=== PATIENT | male | born 1980 | race Caucasian/White ===

== ENCOUNTER 2022-06-02 17:51 | Inpatient (IN) | payer MEDICARE, MEDICAID, SELFPAY ==
--- NOTE | ~2022-06-02 | CT_ITS ---
EXAMINATION: CT ABDOMEN AND PELVIS WITHOUT CONTRAST CLINICAL INFORMATION: Transaminitis COMPARISON: None TECHNIQUE: Multidetector volumetric imaging was performed from the superior aspect of the liver through the pubic symphysis. Sagittal and coronal reformatted images were obtained on the technologist's workstation. This CT examination was performed using dose optimization techniques as appropriate, variously including the following: *Automated exposure control *Adjustment of mA and/or kV according to patient size (this includes techniques or standardized protocols for targeted exams where dose is matched to indication/reason for exam; i.e. extremities or head) *Use of iterative reconstruction technique DLP: 682 mGy-cm FINDINGS: LUNG BASES: The visualized lung bases are unremarkable. LIVER, GALLBLADDER, AND BILIARY TREE: Liver is normal in size, contour and morphology. Diffuse hepatic steatosis. No focal liver lesions. Cholelithiasis suspected. PANCREAS: Unremarkable. SPLEEN: Normal size. Calcified granuloma present. ADRENAL GLANDS: Unremarkable. KIDNEYS AND URETERS: The kidneys are normal in size, shape, and attenuation. No hydronephrosis, hydroureter, or calculi seen. No perinephric stranding. BLADDER: Unremarkable. GASTROINTESTINAL TRACT: The small and large bowel are unremarkable. The appendix is unremarkable. ABDOMINAL WALL: No significant hernia is appreciated. LYMPH NODES: Normal. VASCULAR: Unremarkable. PELVIC VISCERA: Unremarkable. OSSEOUS STRUCTURES: No acute or suspicious osseous abnormalities. CT/CT abdomen pelvis wo con IMPRESSION: Hepatic steatosis. Steatohepatitis can have this appearance as well. Cholelithiasis. No biliary dilatation.
[2022-06-02 17:59] VITALS: BP 134/82; PULSE 70; RESP 18; TEMP 37; O2SAT 100; BMI 25.8
--- NOTE | 2022-06-02 18:36 | ECG_ITS ---
Test Reason : CHEST PAIN Blood Pressure : / mmHG Vent. Rate : 073 BPM Atrial Rate : 073 BPM P-R Int : 120 ms QRS Dur : 090 ms QT Int : 548 ms P-R-T Axes : 057 026 058 degrees QTc Int : 603 ms Normal sinus rhythm Prolonged QT Abnormal ECG No previous ECGs available Referred By: Stiven Aquino Electronically Signed By:RICKY ESPINOZA MD
--- NOTE | 2022-06-02 18:39 | ED_ITS ---
HPI - General Adult General Chief complaint: General Medical Stated complaint: Heat Exhaustion Tired Time Seen by Provider: 06/02/22 18:14 Source: patient Mode of arrival: ambulatory Limitations: other (poor historian ) History of Present Illness HPI narrative: 41-year-old male pmhx ivda, currently homeless presenting to the emergency department with a weakness, fatigue, near syncopal episode x1 day. Patient tel ls me that he has been outside all these hot days and today he is feeling very hot, he got palpitations and some chest discomfort he had to put his head down because he felt like he was going to pass out he tells me he never really lost consciousness however he feels awful. He tells me he has not been eating or drinking well. He tells me he has no home he was on the street. At this time he tells me his only complaint is weakness, fatigue. He reports that he had chest discomfort and palpitations which have subsided. At this time denies fevers, chills, chest pain, nausea, vomiting, shortness of breath, headache, dizziness and vision changes. Denies any trauma. Not on blood thinners. Related Data Allergies Allergy/AdvReac Type Severity Reaction Status Date / Time Unable to Assess Allergy Unverified 06/02/22 18:15 Review of Systems Review of Systems: Constitutional : No Weight loss, No Fever, No Chills, + Fatigue, + Malaise ENT/Mouth : No sore throat, No Rhinorrhea Eyes: No Eye Pain, No Swelling, No Redness Cardiovascular : No Chest Pain, No SOB, No Dyspnea on Exertion, No Orthopnea, No Edema, No Palpitations Respiratory : No Cough, No Sputum, No Wheezing Gastrointestinal : No Nausea, No Vomiting, No Diarrhea, No Constipation, No abdominal Pain, No Hematochezia, No Melena Genitourinary : No Dysuria, No Urinary Frequency, No Hematuria, Musculoskeletal : No joint pain, No Myalgias, No Joint Swelling Skin : No Skin Lesions, No rash Neuro : + Weakness, No Numbness, No Dizziness, No Headache Psych : No Anxiety/Panic, No Depression All other systems reviewed and are negative Yes all other systems are reviewed and are negative [facility] Past Medical History Attestation statement: The following information was validated with the patient. Source: old records reviewed and nursing notes reviewed Medical History Heart palpitations IVDU (intravenous drug user) Social History Social History Alcohol intake: former Patient Tobacco Use Status: Former Tobacco user Use of substances other than those prescribed or required for medical reasons: Yes Advance Directives: No Advance Directives Information Provided: No Physical Exam ED Vital Signs: Vital Signs - 24 hr 06/02/22 17:59 06/02/22 20:04 Temperature 98.6 F Pulse Rate 70 79 Respiratory Rate 18 12 Blood Pressure 134/82 133/84 Pulse Oximetry 100 100 Oxygen Delivery Method Room Air Room Air BMI result Body Mass Index 25.8 VSS Appearance: Alert.? Oriented X3.? No acute distress.? Head: Normocephalic, atraumatic, no step-offs or deformities Eyes: Pupils equal, round and reactive to light.? ENT: Pharynx normal.?+ dry mucus membranes Neck: Normal inspection.? Neck supple.? CVS: Normal heart rate and rhythm.? Pulses normal.? Respiratory: No respiratory distress.? Breath sounds normal.? Abdomen: Soft and nontender.? Skin: Skin warm and dry.? Normal skin color.? Normal skin turgor.?+ skin on face flushed. Extremities: No lower extremity edema.? No calf ttp. 5/5 strength to bilateral upper and lower extremities Neuro: Oriented X 3.? No motor deficit.? No sensory deficit. CN 2-12 intact. Pat ient ambulating w/ steady tandem gait w/ normal cordination, rapid alternating movements intact, normal finger to nose & heel to cee. Course Reevaluation(s) Reevaluation #1: Right sided EJ placed with ultrasound guidance due to patient being a tough stick,no complications . Time: 19:57 Reevaluation #2: CBC within normal limits. Chemistry with a sodium of 128, patient will be receiving 3 L of normal saline. Anion gap of 22, BUN of 95, creatinine 2.84, new onset MARSHA likely secondary to rhabdo. Patient's magnesium 3.5, total bilirubin elevated, transaminases also elevated however no pain with palpation at of abdomen on exam. Patient's total creatinine kinase 2358 consistent with rhabdomyolysis. Ethanol negative. Troponin negative EKG with QTC prolongation again likely secondary to rhabdo/dehydration. Time: 20:01 Reevaluation #3: Patient will admitted to hospitalist team for further evaluation and treatment. Hospitalist requested a CT of the abdomen and pelvis due to transaminitis. It has been ordered at this time. Time: 20:14 Medical Decision Making MDM Narrative Medical decision making narrative: 1839 41-year-old male presents with complaints of fatigue, malaise, near syncopal episode. Reports he is homeless and has been out in hot temperatures for long periods of time. Not eating or drinking well. Physical examination significant for skin on his face appearing flushed. Vital signs are stable. Regular rate and rhythm. Lungs clear. Neuro nonfocal. Cerebellar function intact. Likely dehydration, unlikely ACS. Will rule out rhabdomyolysis. Plan at this time is to obtain basic labs, CPK, drug screen, ethanol, troponin, EKG, UA. Patient did report vague complaints of reflux will give Maalox. Will also give fluids for hydration. Medical Records Medical records reviewed: Yes I reviewed the patient's medical records. Lab Data Lab results reviewed: Yes I reviewed the patient's lab results. Result diagrams: 06/02/22 18:34 06/02/22 18:34 Labs: Lab Results 06/02/22 06/02/22 06/02/22 Range/Units 18:34 18:34 18:34 WBC 11.7 H (4.8-10.8) X10*3/uL RBC 4.72 (4.60-5.80) X10*6/uL Hgb 14.2 (14.0-18.0) g/dl Hct 40.4 L (42.0-52.0) % MCV 85.6 (80.0-98.0) fL MCH 30.1 (27.0-33.0) pg MCHC 35.1 (31.0-36.0) g/dl RDW 13.6 (11.0-16.0) % Plt Count 351 (160-400) X10*3/uL MPV 10.1 (9.4-12.4) fL Immature Gran % (Auto) 0.4 (0.0-0.4) % Neut % (Auto) 65.7 (45-73) % Lymph % (Auto) 23.5 (20-40) % [place] % (Auto) 9.9 (2-11) % Eos % (Auto) 0.2 (0-4) % Baso % (Auto) 0.3 (0-2) % Lymph # (Auto) 2.8 (1.2-4.9) X10*3/uL [place] # (Auto) 1.2 (0.1-1.2) X10*3/uL Eos # (Auto) 0.0 (0.0-0.4) X10*3/uL Baso # (Auto) 0.0 (0.0-0.2) X10*3/uL Abs Immat Gran (auto) 0.05 H (0.00-0.03) X10*3/uL Absolute Neuts (auto) 7.7 (2.0-8.3) x10*3/uL Absolute Nucleated RBC 0.000 (0.0-0.012) X10*3/uL Nucleated RBC % (auto) 0.0 (0.0-0.2) /100WBC Sodium 128 L (135-145) mmol/L Potassium 4.8 (3.3-5.1) mmol/L Chloride 83 L (96-108) mmol/L Carbon Dioxide 28 (22-29) mmol/L Anion Gap 22 H (12-20) BUN 95 H (9-16) mg/dL Creatinine 2.84 H (0.5-1.4) mg/dL Estim Creat Clear Calc 33.4 Estimated GFR 25 Random Glucose 127 H (60-115) mg/dL Calcium 9.4 (8.4-10.2) mg/dL Magnesium 3.5 H* (1.6-2.6) mg/dL Total Bilirubin 1.4 H (0.0-1.0) mg/dL AST 193 H (5-37) U/L ALT 313 H (0-40) U/L Alkaline Phosphatase 114 (39-117) U/L Total Creatine Kinase 2358 H (38-174) U/L Troponin I High Sens (<3.5-35.0) ng/L Total Protein 9.4 H (6.5-8.0) g/dL Albumin 5.3 H (3.5-5.0) g/dL Ethyl Alcohol < 10 mg/dL COVID-19 (ML) Negative (Negative) COVID-19 Clin Com See Note 06/02/22 Range/Units 18:34 WBC (4.8-10.8) X10*3/uL RBC (4.60-5.80) X10*6/uL Hgb (14.0-18.0) g/dl Hct (42.0-52.0) % MCV (80.0-98.0) fL MCH (27.0-33.0) pg MCHC (31.0-36.0) g/dl RDW (11.0-16.0) % Plt Count (160-400) X10*3/uL MPV (9.4-12.4) fL Immature Gran % (Auto) (0.0-0.4) % Neut % (Auto) (45-73) % Lymph % (Auto) (20-40) % [place] % (Auto) (2-11) % Eos % (Auto) (0-4) % Baso % (Auto) (0-2) % Lymph # (Auto) (1.2-4.9) X10*3/uL [place] # (Auto) (0.1-1.2) X10*3/uL Eos # (Auto) (0.0-0.4) X10*3/uL Baso # (Auto) (0.0-0.2) X10*3/uL Abs Immat Gran (auto) (0.00-0.03) X10*3/uL Absolute Neuts (auto) (2.0-8.3) x10*3/uL Absolute Nucleated RBC (0.0-0.012) X10*3/uL Nucleated RBC % (auto) (0.0-0.2) /100WBC Sodium (135-145) mmol/L Potassium (3.3-5.1) mmol/L Chloride (96-108) mmol/L Carbon Dioxide (22-29) mmol/L Anion Gap (12-20) BUN (9-16) mg/dL Creatinine (0.5-1.4) mg/dL Estim Creat Clear Calc Estimated GFR Random Glucose (60-115) mg/dL Calcium (8.4-10.2) mg/dL Magnesium (1.6-2.6) mg/dL Total Bilirubin (0.0-1.0) mg/dL AST (5-37) U/L ALT (0-40) U/L Alkaline Phosphatase (39-117) U/L Total Creatine Kinase (38-174) U/L Troponin I High Sens 7.9 (<3.5-35.0) ng/L Total Protein (6.5-8.0) g/dL Albumin (3.5-5.0) g/dL Ethyl Alcohol mg/dL COVID-19 (ML) (Negative) COVID-19 Clin Com Critical Care Time Critical Care Time Critical Care Time: No Discharge Plan Discharge Clinical Impression: Weakness, Rhabdomyolysis, Dehydration, Acute hyponatremia, MARSHA (acute kidney injury), Transaminitis Patient Disposition: Admitted As Inpatient
[2022-06-02 18:42] LABS: MANUAL DIFF FLAG NO
[2022-06-02] MEDS: Magnesium Hydrox/Alum Hydrox 30 ML ORAL.SUSP 15 ML PO (18:46)
[2022-06-02 18:49] LABS: Basophils Percent Auto 0.3 % (0-2); Eosinophils Percent Auto 0.2 % (0-4); Hematocrit 40.4 % (42.0-52.0); Hemoglobin 14.2 g/dl (14.0-18.0); Imm Gran Abs Auto 0.05 X10*3/uL (0.00-0.03); Imm Gran Pct Auto 0.4 % (0.0-0.4); Lymphocytes Absolute Auto 2.8 X10*3/uL (1.2-4.9); Lymphocytes Percent Auto 23.5 % (20-40); Mean Corpuscular HGB Conc 35.1 g/dl (31.0-36.0); Mean Corpuscular Hemoglobin 30.1 pg (27.0-33.0); Mean Corpuscular Volume 85.6 fL (80.0-98.0); Mean Platelet Volume 10.1 fL (9.4-12.4); Monocytes Absolute Auto 1.2 X10*3/uL (0.1-1.2); Monocytes Percent Auto 9.9 % (2-11); Neutrophils Absolute Auto 7.7 x10*3/uL (2.0-8.3); Neutrophils Percent Auto 65.7 % (45-73); Platelet Count 351 X10*3/uL (160-400); Red Blood Count 4.72 X10*6/uL (4.60-5.80); Red Cell Distribution Width 13.6 % (11.0-16.0); White Blood Count 11.7 X10*3/uL (4.8-10.8)
[2022-06-02 18:58] LABS: COVID-19 Test Negative (Negative)
[2022-06-02 19:12] LABS: Troponin-I High Sensitivity 7.9 ng/L (<3.5-35.0)
[2022-06-02 19:35] LABS: Alanine Aminotransferase 313 U/L (0-40); Albumin Level 5.3 g/dL (3.5-5.0); Alkaline Phosphatase 114 U/L (39-117); Anion Gap 22 (12-20); Aspartate Amino Transferase 193 U/L (5-37); Bilirubin Total 1.4 mg/dL (0.0-1.0); Blood Urea Nitrogen 95 mg/dL (9-16); Calcium 9.4 mg/dL (8.4-10.2); Carbon Dioxide 28 mmol/L (22-29); Chloride 83 mmol/L (96-108); Creatinine Clr Calc Pharmacy 33.4; Estimated Glomerular Filt Rate 25; Ethanol < 10 mg/dL; Glucose Random 127 mg/dL (60-115); Magnesium 3.5 mg/dL (1.6-2.6); Potassium 4.8 mmol/L (3.3-5.1); Sodium 128 mmol/L (135-145); Total Protein 9.4 g/dL (6.5-8.0)
[2022-06-02] MEDS: 0.9 % Sodium Chloride 1,000 ML 999 ML IV ×4 (20:01→23:05)
[2022-06-02 20:04] VITALS: BP 133/84; PULSE 79; RESP 12; O2SAT 100
--- NOTE | 2022-06-02 20:06 | PC.NURSE ---
pt tough stick d/t hx ivdu. juan christopher to bedside for placement of REJ, pt tolerated well. c/o generalized body aches. a&ox3, skin wpd, resp even nonlaboured.
--- NOTE | 2022-06-02 20:20 | P.HPHOSP_ITS ---
History of Present Illness Date of Service: 06/02/22 Chief Complaint: Generalized weakness 41-year-old male with past medical history of IV drug abuse, homeless presented to the hospital with a chief complaint of generalized weakness. Patient reports that over the past few days he has been having generalized wea kness. Denies any falls or trauma. Denies any syncope. Reports he has had an episode of palpitation and chest pain early in the morning. Currently resolved. Also manner mentioned like he is going to faint but did not lose consciousness. Denies any numbness tingling or focal weakness. Mentions that he has not been eating good. Review of all other systems is negative except mentioned above ER course: Per ER team patient noted to be dry, exam nonfocal; EKG nonischemic; troponin negative; EKG showed prolonged QTC; on labs noted to have MARSHA with creatinine of 2.8-unknown baseline; also to elevated ligation with 3.5, elevated liver enzymes; patient had EEG a line placed, given 3 L of normal saline. Admitted to the hospital for further management. [facility] Medical History Heart palpitations IVDU (intravenous drug user) Pertinent family history: Reviewed Social History Alcohol intake: former Patient Tobacco Use Status: Former Tobacco user Use of substances other than those prescribed or required for medical reasons: Yes Advance Directives: No Advance Directives Information Provided: No Meds Allergies Allergy/AdvReac Type Severity Reaction Status Date / Time Unable to Assess Allergy Unverified 06/02/22 18:15 Active Medications: Current Medications Heparin Sodium (Porcine) (Heparin Sodium,Porcine 5,000 Unit/Ml Vial) 5,000 unit SUBCUT Q8H [facility] Sodium Chloride (Ns) 1,000 mls @ 999 mls/hr IV .Q1H1M [facility] Stop: 06/02/22 20:45 Last Admin: 06/02/22 20:02 Dose: 999 mls/hr Sodium Chloride (Ns) 1,000 mls @ 999 mls/hr IV .Q1H1M [facility] Stop: 06/02/22 20:45 Sodium Chloride (Ns) 1,000 mls @ 999 mls/hr IV .Q1H1M [facility] Stop: 06/02/22 21:15 Sodium Chloride (Ns) 1,000 mls @ 50 mls/hr IVCONT .Q20H [facility] Melatonin (Melatonin 3 Mg Tablet) 6 mg PO BEDTIME PRN PRN Reason: Insomnia Senna (Sennosides 8.6 Mg Tablet) 17.2 mg PO BEDTIME PRN PRN Reason: Constipation Sodium Chloride (0.9 % Sodium Chloride Flush 3 Ml Syringe) 3 ml IVFLUSH QSHIFT [facility] Physical Exam Vital Signs and Narrative: Vital Signs: Last Vital Signs Temp 98.6 F 06/02/22 17:59 Pulse 79 06/02/22 20:04 Resp 12 06/02/22 20:04 BP 133/84 06/02/22 20:04 Pulse Ox 100 06/02/22 20:04 O2 Del Method 06/02/22 20:04 BMI result Body Mass Index 25.8 Gen: Appears be in no acute distress HEENT: NCAT, dry mucosa. Pulmonary: Vesicular breath sounds, fair air entry CVS: Normal S1-S2 Abdomen: BS+, Soft, Nontender Extremities: Warm well perfused Neuro: Alert and awake. Results Labs CBC and Chem 7: 06/02/22 18:34 06/02/22 18:34 Labs: Laboratory Results - last 24 hr 06/02/22 06/02/22 06/02/22 18:34 18:34 18:34 MCV 85.6 MCH 30.1 MCHC 35.1 RDW 13.6 Plt Count 351 MPV 10.1 Immature Gran % (Auto) 0.4 Neut % (Auto) 65.7 Lymph % (Auto) 23.5 [place] % (Auto) 9.9 Eos % (Auto) 0.2 Baso % (Auto) 0.3 Lymph # (Auto) 2.8 [place] # (Auto) 1.2 Eos # (Auto) 0.0 Baso # (Auto) 0.0 Abs Immat Gran (auto) 0.05 H Absolute Neuts (auto) 7.7 Absolute Nucleated RBC 0.000 Nucleated RBC % (auto) 0.0 Anion Gap 22 H Estim Creat Clear Calc 33.4 Estimated GFR 25 Random Glucose 127 H Calcium 9.4 Magnesium 3.5 H* Total Bilirubin 1.4 H AST 193 H ALT 313 H Alkaline Phosphatase 114 Total Creatine Kinase 2358 H Total Protein 9.4 H Albumin 5.3 H Ethyl Alcohol < 10 COVID-19 (ML) Negative COVID-19 Clin Com See Note Assessment and Plan (1) Weakness: Status: Acute (2) Rhabdomyolysis: Status: Acute (3) Dehydration: Status: Acute (4) Acute hyponatremia: Status: Acute (5) MARSHA (acute kidney injury): Status: Acute (6) Transaminitis: Status: Acute Plan MARSHA: Likely prerenal. Avoid nephrotoxins. Continue maintenance IV fluids. CT abdomen pending Rhabdomyolysis: Patient on IV fluids Hypermagnesemia: Patient's mentation noted to be 3.5. Likely reduced clearance for renal insufficiency. Will continue to monitor. Hyponatremia: Presumed to be secondary to low solute state. Patient on normal saline at 50 cc/hour. Will repeat levels. Nephrology consult. Transaminitis: Will obtain acute hepatitis panel. CT abdomen pending. Trend liver enzymes. Avoid hepatotoxins. Chest pain/palpitations/Near syncope: Chest pain currently resolved. EKG nonischemic. Initial troponin negative. Repeat troponin pending. Orthostatic vitals. Echocardiogram. U tox pending. Prolonged QTC: Patient's QTC noted to be 548. Will monitor on telemetry. 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
[2022-06-02] MEDS: Heparin Sodium,Porcine 5,000 UNIT/ML VIAL 5000 UNIT SUBCUT (21:13)
[2022-06-02 21:16] LABS: Troponin-I High Sensitivity 6.4 ng/L (<3.5-35.0)
[2022-06-02] MEDS: 0.9 % Sodium Chloride 1,000 ML 50 ML IVCONT (21:34)
[2022-06-02 22:05] VITALS: BP 121/71; PULSE 77; RESP 17; TEMP 36.4; O2SAT 100
[2022-06-02 22:08] LABS: Appearance Urine CLEAR; Color Urine YELLOW; Glucose Urine UA NEG (NEG); Leukocyte Esterase Urine NEG (NEG); Nitrite Urine NEG (NEG); PH 5.5 (5.0-8.0); Specific Gravity - Urine >= 1.030 (1.005-1.025); Urine Blood NEG (NEG); Urine Ketones NEG (NEG); Urine Protein NEG (NEG-TRACE)
[2022-06-02 22:36] LABS: Amphetamine Screen Urine Not Detected (Not Detect); Barbiturates, Urine Not Detected (Not Detect); Benzodiazepines Screen Urine Not Detected (Not Detect); Cannabinoid Screen Urine Not Detected (Not Detect); Cocaine Screen Urine POSITIVE (Not Detect); Fentanyl, urine POSITIVE (Not Detect); Opiate Screen Urine POSITIVE (Not Detect); Phencyclidine Screen Urine Not Detected (Not Detect)
[2022-06-02 22:58] VITALS: BP 134/82; PULSE 84; RESP 18; TEMP 36.6; O2SAT 100
--- NOTE | 2022-06-03 03:19 | PC.NURSE ---
pt resting quietly at this time.
[2022-06-03 05:55] VITALS: BP 104/48; PULSE 71; RESP 13; O2SAT 99
[2022-06-03 06:55] LABS: MANUAL DIFF FLAG NO
[2022-06-03 06:59] LABS: Basophils Absolute Auto 0.1 X10*3/uL (0.0-0.2); Basophils Percent Auto 0.7 % (0-2); Eosinophils Absolute Auto 0.1 X10*3/uL (0.0-0.4); Eosinophils Percent Auto 1.4 % (0-4); Hematocrit 34.8 % (42.0-52.0); Hemoglobin 12.1 g/dl (14.0-18.0); Imm Gran Abs Auto 0.02 X10*3/uL (0.00-0.03); Imm Gran Pct Auto 0.3 % (0.0-0.4); Lymphocytes Absolute Auto 2.3 X10*3/uL (1.2-4.9); Lymphocytes Percent Auto 31.6 % (20-40); Mean Corpuscular HGB Conc 34.8 g/dl (31.0-36.0); Mean Corpuscular Hemoglobin 30.3 pg (27.0-33.0); Mean Platelet Volume 10.1 fL (9.4-12.4); Monocytes Percent Auto 14.2 % (2-11); Neutrophils Absolute Auto 3.7 x10*3/uL (2.0-8.3); Neutrophils Percent Auto 51.8 % (45-73); Platelet Count 263 X10*3/uL (160-400); Red Cell Distribution Width 14.1 % (11.0-16.0); White Blood Count 7.2 X10*3/uL (4.8-10.8)
[2022-06-03 07:12] LABS: Alanine Aminotransferase 217 U/L (0-40); Albumin Level 3.8 g/dL (3.5-5.0); Alkaline Phosphatase 81 U/L (39-117); Anion Gap 14 (12-20); Aspartate Amino Transferase 132 U/L (5-37); Bilirubin Direct 0.3 mg/dL (0.0-0.5); Bilirubin Total 0.9 mg/dL (0.0-1.0); Blood Urea Nitrogen 52 mg/dL (9-16); Calcium 7.9 mg/dL (8.4-10.2); Carbon Dioxide 23 mmol/L (22-29); Chloride 103 mmol/L (96-108); Creatinine Clr Calc Pharmacy 83.3; Estimated Glomerular Filt Rate > 60; Glucose Random 94 mg/dL (60-115); Potassium 3.7 mmol/L (3.3-5.1); Sodium 136 mmol/L (135-145); Total Protein 6.8 g/dL (6.5-8.0)
[2022-06-03] MEDS: Lactated Ringers 1,000 ML 125 ML IVCONT ×2 (07:49→14:41)
--- NOTE | 2022-06-03 08:00 | PC.NURSE ---
report taken from leslie coello pt here for rhabdo related to dehydration, pt homeless, offers no complaints this am, sitting upright in no distress. ate entire breakfast 100% as well as multiple jellos. asking about his po methadone dosage for the day. awaiting inpt bed assignment, maintenance fluids running.
--- NOTE | 2022-06-03 10:07 | ECG_ITS ---
Test Reason : QTC CHECK FOR METHADONE Blood Pressure : / mmHG Vent. Rate : 057 BPM Atrial Rate : 057 BPM P-R Int : 118 ms QRS Dur : 092 ms QT Int : 472 ms P-R-T Axes : 056 031 042 degrees QTc Int : 459 ms Sinus bradycardia Otherwise normal ECG When compared with ECG of 02-JUN-2022 19:29, QT has shortened Referred By: Yobani Moore Electronically Signed By:ALYSHA LEW
--- NOTE | 2022-06-03 10:14 | MHC.RECOVRN ---
Met with pt in ED1 to discuss substance use. Pt sitting in bed, awake, alert, easily engaged in conversation. Does not appear to be experiencing withdrawal symptoms. Pt reports having recently been discharged from [facility] in [place] to [facility] in [place]. When pt arrived to [place] a few days ago, pt states It looked like an abandoned building, I didn't even go in. Pt has been using 4-5 bags heroin daily, IV, x 3 days as well as cocaine, $50 daily, IV. Pt is currently on methadone through [facility] in [place] but has been guest dosing at [facility]. T/w spoke with Mary at [facility], pts last dose was 06/02/22 at 0818, 100 mg. Verification has been sent to pharmacy. Pt aware of need for repeat EKG due to prolonged QTc. Discussed with hospitalist as well as Gali Degroot NP.
--- NOTE | 2022-06-03 10:35 | P.PNIM_ITS ---
Subjective Subjective Date of Service: 06/03/22 Interval History: cc: weakness interval history:feeling better Cardiovascular Cardiovascular: Reports no additional cardiovascular complaints Respiratory Respiratory: Reports no additional respiratory complaints Physical Exam Vital Signs: Vital Signs: Last Vital Signs Temp 97.8 F 06/02/22 22:58 Pulse 71 06/03/22 05:55 Resp 13 06/03/22 05:55 BP 104/48 L 06/03/22 05:55 Pulse Ox 99 06/03/22 05:55 O2 Del Method 06/03/22 05:55 BMI result Body Mass Index 25.8 General: AO X 3, no acute distress Resp: CTA bilateral, no accessory muscles used CVS: S1,S2,RRR GI: soft, non tender, non distended Neuro: motor grossly intact, alert Psych: appropriate affect, appropriate insight Objective Data Active Medications Heparin Sodium (Porcine) (Heparin Sodium,Porcine 5,000 Unit/Ml Vial) 5,000 unit SUBCUT Q8H [facility] Last Admin: 06/03/22 04:42 Dose: Not Given Documented By: RALPH Non-Admin Reason: Patient Refused Lactated Ringer's (Lr) 1,000 mls @ 125 mls/hr IVCONT .Q8H [facility] Last Admin: 06/03/22 07:49 Dose: 125 mls/hr Documented By: DEUCE Senna (Sennosides 8.6 Mg Tablet) 17.2 mg PO BEDTIME PRN PRN Reason: Constipation Sodium Chloride (0.9 % Sodium Chloride Flush 3 Ml Syringe) 3 ml IVFLUSH QSHIFT [facility] Last Admin: 06/03/22 06:52 Dose: Not Given Documented By: DEUCE Non-Admin Reason: Med Not Available Labs CBC & Chem 7: 06/03/22 06:49 06/03/22 06:49 Labs: Laboratory Results - last 24 hr 06/02/22 06/02/22 06/02/22 18:34 18:34 18:34 MCV 85.6 MCH 30.1 MCHC 35.1 RDW 13.6 Plt Count 351 MPV 10.1 Immature Gran % (Auto) 0.4 Neut % (Auto) 65.7 Lymph % (Auto) 23.5 [place] % (Auto) 9.9 Eos % (Auto) 0.2 Baso % (Auto) 0.3 Lymph # (Auto) 2.8 [place] # (Auto) 1.2 Eos # (Auto) 0.0 Baso # (Auto) 0.0 Abs Immat Gran (auto) 0.05 H Absolute Neuts (auto) 7.7 Absolute Nucleated RBC 0.000 Nucleated RBC % (auto) 0.0 Anion Gap 22 H Estim Creat Clear Calc 33.4 Estimated GFR 25 Random Glucose 127 H Calcium 9.4 Magnesium 3.5 H* Total Bilirubin 1.4 H Direct Bilirubin AST 193 H ALT 313 H Alkaline Phosphatase 114 Total Creatine Kinase 2358 H Total Protein 9.4 H Albumin 5.3 H Urine Color Urine Appearance Urine pH Ur Specific [place] Urine Protein Urine Glucose (UA) Urine Ketones Urine Blood Urine Nitrite Ur Leukocyte Esterase Urine Opiates Screen Urine Fentanyl Screen Ur Barbiturates Screen Ur Phencyclidine Scrn Ur Amphetamines Screen U Benzodiazepines Scrn Urine Cocaine Screen U Marijuana (THC) Screen Ethyl Alcohol < 10 COVID-19 (ML) Negative COVID-19 Clin Com See Note 06/02/22 06/02/22 06/03/22 21:45 21:45 06:49 MCV 87.0 MCH 30.3 MCHC 34.8 RDW 14.1 Plt Count 263 D MPV 10.1 Immature Gran % (Auto) 0.3 Neut % (Auto) 51.8 Lymph % (Auto) 31.6 [place] % (Auto) 14.2 H Eos % (Auto) 1.4 Baso % (Auto) 0.7 Lymph # (Auto) 2.3 [place] # (Auto) 1.0 Eos # (Auto) 0.1 Baso # (Auto) 0.1 Abs Immat Gran (auto) 0.02 Absolute Neuts (auto) 3.7 Absolute Nucleated RBC 0.000 Nucleated RBC % (auto) 0.0 Anion Gap Estim Creat Clear Calc Estimated GFR Random Glucose Calcium Magnesium Total Bilirubin Direct Bilirubin AST ALT Alkaline Phosphatase Total Creatine Kinase Total Protein Albumin Urine Color YELLOW Urine Appearance CLEAR Urine pH 5.5 Ur Specific [place] >= 1.030 H Urine Protein NEG Urine Glucose (UA) NEG Urine Ketones NEG Urine Blood NEG Urine Nitrite NEG Ur Leukocyte Esterase NEG Urine Opiates Screen POSITIVE H Urine Fentanyl Screen POSITIVE H Ur Barbiturates Screen Not Detected Ur Phencyclidine Scrn Not Detected Ur Amphetamines Screen Not Detected U Benzodiazepines Scrn Not Detected Urine Cocaine Screen POSITIVE H U Marijuana (THC) Screen Not Detected Ethyl Alcohol COVID-19 (ML) COVID-19 Clin Com 06/03/22 06/03/22 06/03/22 06:49 06:49 06:49 MCV MCH MCHC RDW Plt Count MPV Immature Gran % (Auto) Neut % (Auto) Lymph % (Auto) [place] % (Auto) Eos % (Auto) Baso % (Auto) Lymph # (Auto) [place] # (Auto) Eos # (Auto) Baso # (Auto) Abs Immat Gran (auto) Absolute Neuts (auto) Absolute Nucleated RBC Nucleated RBC % (auto) Anion Gap 14 Estim Creat Clear Calc 83.3 Estimated GFR > 60 Random Glucose 94 Calcium 7.9 L D Magnesium Total Bilirubin 0.9 Direct Bilirubin 0.3 AST 132 H ALT 217 H Alkaline Phosphatase 81 D Total Creatine Kinase 1088 H D Total Protein 6.8 D Albumin 3.8 D Urine Color Urine Appearance Urine pH Ur Specific [place] Urine Protein Urine Glucose (UA) Urine Ketones Urine Blood Urine Nitrite Ur Leukocyte Esterase Urine Opiates Screen Urine Fentanyl Screen Ur Barbiturates Screen Ur Phencyclidine Scrn Ur Amphetamines Screen U Benzodiazepines Scrn Urine Cocaine Screen U Marijuana (THC) Screen Ethyl Alcohol COVID-19 (ML) COVID-19 Clin Com Assessment and Plan (1) Weakness: Status: Acute Plan 41M presented wtih weakness, found to have marsha MARSHA due to dehyrdation from hot weather improving with iv fluids monitor opiate dependence qt prolonged, holding methadone, monitor dvt prophylaxis - hep sq full code reason for continued hospitalization:ivf for marsha Quality Stroke Does the patient have a stroke diagnosis?: No VTE Prior VTE?: No VTE Risk Level:: Medical - moderate - high VTE Device Contraindication: Treatment Not Indicated VTE Drug Contraindication: N/A - Med Ordered
[2022-06-03 10:39] VITALS: BP 115/56; PULSE 63
[2022-06-03 10:40] VITALS: BP 123/63; PULSE 60
[2022-06-03 10:41] VITALS: BP 124/71; PULSE 78
[2022-06-03] MEDS: Heparin Sodium,Porcine 5,000 UNIT/ML VIAL 5000 UNIT SUBCUT ×2 (12:31→20:46)
[2022-06-03] MEDS: methADONE HCl 20 MG/2 ML ORAL.CONC 100 MG PO (12:31)
--- NOTE | 2022-06-03 12:38 | PC.NURSE ---
resting comfortably, offers no new complaints, tolerating po without issue. vss. wctm for bed assign.
[2022-06-03 19:20] VITALS: BP 127/67; PULSE 75; RESP 15; TEMP 36.9; O2SAT 98
--- NOTE | 2022-06-03 19:33 | PM.CNNEP ---
History of Present Illness Reason for Consult Consult date: 06/03/22 Reason for consult: TAO, rhabdomyolysis Chief Complaint Chief complaint: Tao History of Present Illness Narrative: 41-year-old male with past medical history of IVDU and homelessness who presented to the ED on 06/02 with complaint of generalized weakness. He reported fatigue, near syncopal episode x1 day. He reported that he is homeless and has been out in hot temperatures for long periods of time. In ED, patient noted to be dry, exam nonfocal; EKG nonischemic; troponin negative; EKG showed prolonged QTC; on labs noted to have TAO with creatinine of 2.8 mg/dL. BL is unknown. He received 3 L of normal saline and was admitted to the hospital for further management. S-Cr has since improved to 1.14 mg/dL. UOP ~ 700 cc in last 24 hours. CK was notably elevated on presentation at 2358 and is also downtredning with fluids. Nephrology was consulted for additional input into TAO mgt. ROS otherwise negative. Review of Systems Constitutional: Reports as per [facility] Past Medical History Medical History Heart palpitations IVDU (intravenous drug user) Social History Social History Household Members: Other Housing: Homeless Do you presently have visiting nurse or other home services: No Alcohol intake: former Patient Tobacco Use Status: Current everyday Tobacco user Tobacco use type: Cigarette e-Cigarette/Vaping Use: Never Used Second Hand Smoke Exposure: No Substance Use Type: Crack/Cocaine, Heroin, IV Drugs, Opiates and Painkillers Meds Allergies Allergy/AdvReac Type Severity Reaction Status Date / Time amoxicillin Allergy Anaphylaxis Verified 06/03/22 19:05 Active Medications: Current Medications Heparin Sodium (Porcine) (Heparin Sodium,Porcine 5,000 Unit/Ml Vial) 5,000 unit SUBCUT Q8H [facility] Last Admin: 06/03/22 12:31 Dose: 5,000 unit Lactated Ringer's (Lr) 1,000 mls @ 125 mls/hr IVCONT .Q8H [facility] Last Admin: 06/03/22 14:41 Dose: 125 mls/hr Methadone HCl (Methadone Hcl 20 Mg/2 Ml Oral.Conc) 100 mg PO DAILY [facility] Last Admin: 06/03/22 12:31 Dose: 100 mg Senna (Sennosides 8.6 Mg Tablet) 17.2 mg PO BEDTIME PRN PRN Reason: Constipation Sodium Chloride (0.9 % Sodium Chloride Flush 3 Ml Syringe) 3 ml IVFLUSH QSHIFT [facility] Last Admin: 06/03/22 14:42 Dose: Not Given Home Medications Medication Instructions Recorded Confirmed Last Taken Type methadone 10 mg/mL oral 100 mg PO DAILY 06/03/22 06/03/22 Unknown History concentrate (Methadone Intensol) Physical Exam Vital Signs: Last Vital Signs Temp 98.4 F 06/03/22 19:20 Pulse 75 06/03/22 19:20 Resp 15 06/03/22 19:20 BP 127/67 06/03/22 19:20 Pulse Ox 98 06/03/22 19:20 O2 Del Method 06/03/22 19:20 BMI result Body Mass Index 25.8 Const General: no acute distress Orientation/consciousness: patient oriented x3 HEENT Head: Yes normocephalic Neck Neck: Yes no JVD Resp Auscultation: clear to auscultation bilaterally Cardio Jugular venous distension: no JVD Rate: regular rate Rhythm: regular rhythm GI Auscultation: normal bowel sounds Neuro General: patient oriented x3 Extrem General: Yes no clubbing, cyanosis or edema Results Lab Results Result Diagrams: 06/03/22 06:49 06/03/22 06:49 Lab results: Chemistry 06/02/22 06/03/22 18:34 06:49 Sodium 128 L 136 Potassium 4.8 3.7 D Carbon Dioxide 28 23 BUN 95 H 52 H Creatinine 2.84 H 1.14 Calcium 9.4 7.9 L D Hematology 06/02/22 06/03/22 18:34 06:49 WBC 11.7 H 7.2 Hgb 14.2 12.1 L Plt Count 351 263 D Urinalysis 06/02/22 21:45 Urine Color YELLOW Urine Appearance CLEAR Urine pH 5.5 Ur Specific [place] >= 1.030 H Urine Protein NEG Urine Glucose (UA) NEG Urine Ketones NEG Urine Blood NEG Urine Nitrite NEG Ur Leukocyte Esterase NEG Assessment and Plan (1) Rhabdomyolysis: Status: Acute (2) Acute hyponatremia: Status: Acute (3) TAO (acute kidney injury): Status: Acute Plan 41-year-old male with past medical history of IVDU and homelessness who presented to the ED on 06/02 with complaint of generalized weakness. He reported fatigue, near syncopal episode x1 day. He reported that he is homeless and has been out in hot temperatures for long periods of time. In ED, patient noted to be dry, exam nonfocal; EKG nonischemic; troponin negative; EKG showed prolonged QTC; on labs noted to have TAO with creatinine of 2.8 mg/dL. BL is unknown. He received 3 L of normal saline and was admitted to the hospital for further management. S-Cr has since improved to 1.14 mg/dL. UOP ~ 700 cc in last 24 hours. CK was notably elevated on presentation at 2358 and is also downtredning with fluids. Nephrology was consulted for additional input into TAO mgt. Problem List: TAO, non-oliguric Rhabdomyolysis Hyponatremia Impression and plan: TAO, Non-oliguric renal injury related to tubular stress from IV depletion and elevated CK from rhabdomyolysis Trend CK COntinues with gentle ivf support to alkalanize urine. rbc's on ua consistent with rhabdomyolysis. Electrolytes otherwise stable. Hyponatremia from poor po intake which improved with isotonic ivf's. renal panel daily avoidance of nsaids, acei/arb, iv contrast Procedures Date of Service Date of Service: 06/03/22
[2022-06-04] VITALS: BP 120/71; PULSE 56; RESP 16; TEMP 36.2; O2SAT 95
[2022-06-04] MEDS: Lactated Ringers 1,000 ML 125 ML IVCONT ×2 (00:06→08:07)
[2022-06-04 04:00] VITALS: BP 108/64; PULSE 68; RESP 17; TEMP 36.2; O2SAT 98
[2022-06-04] MEDS: Heparin Sodium,Porcine 5,000 UNIT/ML VIAL 5000 UNIT SUBCUT (04:19)
[2022-06-04 06:54] VITALS: BP 118/68; PULSE 74; RESP 18; TEMP 36.1; O2SAT 98
--- NOTE | 2022-06-04 07:00 | CA_ITS ---
Transthoracic Echocardiogram Patient (Last, First, Middle): Tavo Espinoza, Gender: Male Date of : 1980 Age: 41 Procedure Date: 06/04/2022 Procedure Type: Transthoracic Echocardiogram Location: S3E Height: 172.72 cm Weight: 77.11 kg BSA: 1.91 m2 Heart Rate: bpm BP: 118 / 68 mmHg Chemistry Lab Instructor: BARBIE Referring MD: Miguel Rodriguez MD Symptoms: near syncope Study Quality: Adequate ECG Rhythm: Sinus Conclusions: - The left ventricular systolic function is normal. The calculated ejection fraction is 63% by biplane method. - Moderately increased right ventricular cavity size. - No obvious valvular pathology seen on this study. Findings Left Ventricle Normal left ventricular cavity size. There is normal left ventricular wall thickness. The left ventricular systolic function is normal. The calculated ejection fraction is 63% by biplane method. There is no evidence of regional wall motion abnormalities. Diastolic function is normal for age. Right Ventricle Moderately increased right ventricular cavity size. There is normal right ventricular systolic function. Atria The left atrium is mildly dilated. The right atrium is normal in size. Aortic Valve There is a normal trileaflet aortic valve. There is no aortic valve stenosis. There is no aortic valve regurgitation. Mitral Valve The mitral valve appears normal. There is trace mitral valve regurgitation. There is no mitral valve stenosis. Pulmonic Valve The pulmonic valve is likely normal. Tricuspid Valve Normal tricuspid valve structure. There is trace tricuspid valve regurgitation. The pulmonary artery systolic pressure is normal. Great Vessels The aortic annulus, sinuses of valsalva, and asc aorta are normal in size. Venous The inferior vena cava is normal in size and collapses greater than 50% with inspiration. Pericardium/Pleural There is no evidence of pericardial effusion. Prior Study Comparison No prior study available for comparison. Recommendations, Care & Conclusions No obvious valvular pathology seen on this study. Measurements 2D Linear Measurements IVSd: 0.96 0.6-0.9/0.6-1.0 cm LVIDd: 4.87 3.9-5.3/4.2-5.9 cm LVIDd Index: 2.55 2.4-3.2/2.2-3.1 cm/m2 LVIDs: 2.98 2.0-3.6 cm LVPWd: 0.95 0.7-1.1 cm LA Diam: 4.20 2.7-3.8/3.0-4.0 cm LAIDs Index: 2.20 1.5-2.3 cm/m2 LV Mass: 204.73 67-162/88-224 g LV Mass Index: 107.19 43-95/49-115 g/m2 LVOT Diam: 2.00 3.0+(-)1.3 cm 2D Systolic Function EF 4C: 59.40 >55% EF 2C: 64.30 >55% EF BiP: 63.00 >55% Mitral Valve MV Pk E: 1.08 MV PK A: 0.76 MV Decel Time: 161.00 E/A: 1.40 E'Lateral: 17.10 E'Medial: 13.20 E/E' Med: 8.20 E/E' Lat: 6.30 PHT: 47.00 MVA PHT: 4.68 Decel Crockett: 6.70 Aortic Valve AoV Pk Vikash: 1.82 AoV Mn Vikash: 1.09 AoV VTI: 0.34 AoV Pk Grad: 13.00 Aov Mn Grad: 6.00 MARIA LUZ Cont.VTI: 2.56 LVOT LVOT Pk Vikash: 1.59 LVOT Mn Vikash: 1.02 LVOT VTI: 0.28 LVOT Pk Grad: 10.00 LVOT Mn Grad: 5.00 LVOT Diam: 2.00 LVOT Area: 3.14 Diastolic Function MV Pk E: 1.08 MV Pk A: 0.76 E/A: 1.40 E'Medial: 13.20 E/E' Med: 8.20 E' Laterial: 17.10 E/E' Lat: 6.30 Right Ventricle TAPSE (mm): 31.60 TVS' Vikash: 15.90 Great Vessels Aorta Sinus of Valsalva: 3.00 2.0-3.[address] [place]: 2.87 1.7-3.4 cm Ao Asc: 3.10 2.1-3.4 cm Updated in Other Vendor System with Status of Final Chaka Mckoy MD electronically signed on 06/04/2022 10:47:05 AM with status of Final
[2022-06-04 07:05] LABS: Anion Gap 11 (12-20); Blood Urea Nitrogen 27 mg/dL (9-16); Carbon Dioxide 26 mmol/L (22-29); Chloride 106 mmol/L (96-108); Creatinine Clr Calc Pharmacy 131.9; Estimated Glomerular Filt Rate > 60; Glucose Fasting 81 mg/dL (60-99); Sodium 139 mmol/L (135-145)
[2022-06-04 07:13] LABS: Hematocrit 34.2 % (42.0-52.0); Hemoglobin 11.6 g/dl (14.0-18.0); Mean Corpuscular HGB Conc 33.9 g/dl (31.0-36.0); Mean Corpuscular Hemoglobin 30.6 pg (27.0-33.0); Mean Corpuscular Volume 90.2 fL (80.0-98.0); Mean Platelet Volume 10.7 fL (9.4-12.4); Platelet Count 217 X10*3/uL (160-400); Red Blood Count 3.79 X10*6/uL (4.60-5.80); Red Cell Distribution Width 14.2 % (11.0-16.0); White Blood Count 6.1 X10*3/uL (4.8-10.8)
[2022-06-04 07:42] LABS: HBS Num1 > 1000.00 mIU/mL (0-7.99); HBc Num1 0.13 S/CO (0.00-0.79); Hepatitis B Core Antibody Nonreactive (Nonreactive); ~HepC Num1 13.49 S/CO (0.00-0.79); ~Hepatitis B Surface Antibody REACTIVE (Nonreactive); ~Hepatitis C Antibody Reactive (Nonreactive)
[2022-06-04] MEDS: methADONE HCl 20 MG/2 ML ORAL.CONC 100 MG PO (08:07)
[2022-06-04 08:12] LABS: HBsAGNum1 0.17 S/CO (0.00-0.99); Hepatitis B Surface Antigen Negative (Negative)
--- NOTE | 2022-06-04 09:53 | PM.DS ---
DS: Providers Provider Date of Service: 06/04/22 Date of admission: 06/02/22 20:14 Primary care physician: None Physician Consults: 06/02/22 20:14 Consult to Nephrology Routine Consulting Provider: Nish Rinaldi Reason for consultation: MARSHA DS: Diagnosis Discharge Diagnosis (1) Rhabdomyolysis: Status: Acute (2) Acute hyponatremia: Status: Acute (3) MARSHA (acute kidney injury): Status: Acute DS: Summary Hospital Course Hospital Course: form initial hpi: Chief Complaint: Generalized weakness 41-year-old male with past medical history of IV drug abuse, homeless presented to the hospital with a chief complaint of generalized weakness.? Patient reports that over the past few days he has been having generalized weakness.? Denies any falls or trauma.? Denies any syncope.? Reports he has had an episode of palpitation and chest pain early in the morning.? Currently resolved.? Also manner mentioned like he is going to faint but did not lose consciousness.? Denies any numbness tingling or focal weakness.? Mentions that he has not been eating good.? Review of all other systems is negative except mentioned above ER course: Per ER team patient noted to be dry, exam nonfocal; EKG nonischemic; troponin negative; EKG showed prolonged QTC; on labs noted to have MARSHA with creatinine of 2.8-unknown baseline; also to elevated ligation with 3.5, elevated liver enzymes; patient had EEG a line placed, given 3 L of normal saline.? Admitted to the hospital for further management. hospital course: Patient was admitted due to weakness from acute kidney injury from dehydration due to hot weather and polysubstance abuse. He improved with aggressive hydration and creatinine is normal at discharge. For his opiate dependence complicated by prolongation of QT his follow-up EKG showed improved QT and he was restarted on methadone 100 mg daily. Patient was educated on avoiding illicit substances and is feeling much better and will be discharged. Time Spent with Patient Time attestation: Total time spent providing and/or coordinating discharge services: Discharge coordination time: Greater than 30 minutes Quality: Safe Use of Opioids Does Pt have an Active Cancer Diagnosis on the Problem List?: No Quality: Stroke Does the patient have a stroke diagnosis?: No Physical Exam Vital Signs: Vital Signs: Last Vital Signs Temp 97 F 06/04/22 06:54 Pulse 74 06/04/22 06:54 Resp 18 06/04/22 06:54 BP 118/68 06/04/22 06:54 Pulse Ox 98 06/04/22 06:54 O2 Del Method 06/04/22 06:54 BMI result Body Mass Index 25.8 General: AO X 3, no acute distress Resp: CTA bilateral, no accessory muscles used CVS: S1,S2,RRR GI: soft, non tender, non distended Neuro: motor grossly intact, alert Psych: appropriate affect, appropriate insight DS: Data Data Completed and Pending Labs on day of discharge: Laboratory Results - last 24 hr 06/02/22 06/04/22 06/04/22 20:43 05:33 05:33 WBC 6.1 RBC 3.79 L Hgb 11.6 L Hct 34.2 L MCV 90.2 MCH 30.6 MCHC 33.9 RDW 14.2 Plt Count 217 MPV 10.7 Absolute Nucleated RBC 0.000 Nucleated RBC % (auto) 0.0 Sodium 139 Potassium 4.0 Chloride 106 Carbon Dioxide 26 Anion Gap 11 L BUN 27 H Creatinine 0.72 Estim Creat Clear Calc 131.9 Estimated GFR > 60 Fasting Glucose 81 Calcium 8.0 L Hep Bs Antigen Negative Hep Bs Antibody REACTIVE Hep B Core Total Ab Nonreactive Hepatitis C Ab (EIA) Reactive H Discharge Plan Discharge Patient Disposition: Home, Self-Care Discharge Diagnosis: marsha Referrals: Physician,None [Primary Care Provider] - 1 Week Discharge Medications: Continued methadone [Methadone Intensol] 10 mg/mL Concentrate 100 mg PO DAILY Discharge Orders: Discharge Order (Routine); Ordered 06/04/22 Ordered By: Yobani Moore Diet: Advance to usual diet Activity on Discharge: As tolerated Stand Alone Forms: Patient Portal Discharge page Care Plan Goals: avoid marsha Health Concerns: polysubstance abuse Plan of Treatment: stop using illicit substances Assessment: see above
--- NOTE | 2022-06-04 11:19 | MHC.CM.PN ---
IMM 06/04/22, EMR REVIEWED, PT ADMITTED W/MARSHA, CM MET W/PT WHO IS PLEASANT. A&OX4, REPORTS HE IS CURRENTLY HOMELESS HOWEVER HE WILL GO RETRIEVE HIS BELONGINGS IN [place] AND THEN PLANS TO SELF PRESENT AT [facility], PT GIVEN BUS PASSES AND LAST DOSE LETTER, PT WILL RESUME METHADONE MAINTENANCE [facility] VS [facility]. PT REPORTS HE IS INDEP, DENIES USE OF DME/SERVICES OTHER THAN THOSE PROVIDED AT [facility], PT DENIES HAVING A PCP AND CURRENTL DECLINES ASSISTANCE W/OR PAMPHLET OF [facility] PROVIDERS HE IS NOT SURE WHERE HE WILL END UP. PT ALSO DENIES HAVING HCP, PT EDUCATED ON AND DECLINES TO COMPLETE ONE THIS ADMISSION. D/C [facility] W/PLAN FOR [facility], BUS FOR TRANSPORT.
[2022-06-06 08:23] LABS: Hepatitis A Antibody IgM 0.17 Index (0-0.79); ~Hepatitis A Antibody IgM Nonreactive (Nonreactive)
== END 2022-06-04 13:00 | disposition home or self-care (01) | DRG 683 ==
LOC: HO.ED 20:03 → HO.EDOVER 20:48 → HO.S3 06-03 14:19
PROVIDERS: Physician Assistant; Admitting Provider Hospitalist; Emergency Provider Student in an Organized Health Care Education/Training Program; Visit Provider Internal Medicine
DX: N17.9 Acute kidney failure, unspecified (principal); E87.1 Hypo-osmolality and hyponatremia; M62.82 Rhabdomyolysis; F11.20 Opioid dependence, uncomplicated; R94.31 Abnormal electrocardiogram [ECG] [EKG]; F17.210 Nicotine dependence, cigarettes, uncomplicated; E86.0 Dehydration; Z71.6 Tobacco abuse counseling; Z88.0 Allergy status to penicillin; Z56.0 Unemployment, unspecified; Z59.02 Unsheltered homelessness; Z20.822 Contact with and (suspected) exposure to COVID-19
CPT/HCPCS: 36415; 74176; 80048; 80053; 80076; 80307; 81003; 82077; 82550; 83735; 84484; 85025; 85027; 86704; 86706; 86709; 86803; 87340; 87635; 93005; 93306; 96360; 99285

== ENCOUNTER 2022-10-08 00:43 | Emergency (ER) | payer MEDICARE, MEDICAID, SELFPAY ==
[2022-10-08 00:55] VITALS: BP 143/68; PULSE 76; RESP 18; TEMP 37; O2SAT 95; BMI 25.2
--- NOTE | 2022-10-08 02:12 | ED.DENTAL ---
HPI - Dental/Oral General Chief complaint: Dental/Oral Stated complaint: right eye swollen under, abscess Time Seen by Provider: 10/08/22 02:04 Source: patient Mode of arrival: ambulatory Limitations: no limitations History of Present Illness HPI Narrative: Patient complaining of dental pain in the maxillary side right side. Patient states that 2 days ago he chipped tooth. Denies trauma. No fever chills. Related Data Home Medications Medication Instructions Recorded Confirmed methadone 10 mg/mL oral 100 mg PO DAILY 06/03/22 06/03/22 concentrate (Methadone Intensol) Previous Rx's Medication Instructions Recorded clindamycin HCl 150 mg capsule 150 mg PO TID 7 days #21 caps 10/08/22 ibuprofen 600 mg tablet 600 mg PO Q8H PRN fever or pain 10/08/22 #20 tabs Allergies Allergy/AdvReac Type Severity Reaction Status Date / Time amoxicillin Allergy Anaphylaxis Verified 06/03/22 19:05 Penicillins Allergy Unknown Verified 10/08/22 00:55 Review of Systems Review of Systems: Constitutional : No Weight loss, No Fever, No Chills, No Night Sweats, No Fatigue, No Malaise ENT/Mouth : Complaining of dental pain, No Hearing loss, No Ear Pain, No Nasal Congestion, No Sinus Pain, No Hoarseness, No sore throat, No Rhinorrhea, No Swallowing Difficulty Eyes: No Eye Pain, No Swelling, No Redness, No Foreign Body, No Discharge, No Vision Changes Cardiovascular : No Chest Pain, No SOB, No Dyspnea on Exertion, No Orthopnea, No Edema, No Palpitations Respiratory : No Cough, No Sputum, No Wheezing, No Smoke Exposure, No Dyspnea Gastrointestinal : No Nausea, No Vomiting, No Diarrhea, No Constipation, No abdominal Pain, No Hematochezia, No Melena Genitourinary : no irregular bleeding, No Dysuria, No Urinary Frequency, No Hematuria, No Urinary Incontinence, No Urgency, No Flank Pain, No Urinary Flow Changes, No Hesitancy Musculoskeletal : No joint pain, No Myalgias, No Joint Swelling Skin : No Skin Lesions, No rash Neuro : No Weakness, No Numbness, No Paresthesias, No Loss of Consciousness, No Dizziness, No Headache Psych : No Anxiety/Panic, No Depression, No SI/HI/AH/VH, No Social Issues, Heme/Lymph: No Bruising, No Bleeding,No Lymphadenopathy Endocrine : No Polyuria, No Polydipsia, No Temperature Intolerance [facility] Past Medical History Medical History Heart palpitations IVDU (intravenous drug user) Social History Social History Household Members: Other Housing: Homeless Do you presently have visiting nurse or other home services: No Alcohol intake: former Patient Tobacco Use Status: Current everyday Tobacco user Tobacco use type: Cigarette e-Cigarette/Vaping Use: Never Used Second Hand Smoke Exposure: No Substance Use Type: Crack/Cocaine, Heroin, IV Drugs, Opiates and Painkillers Advance Directives: No Advance Directives Information Provided: No service: No Current occupational status: unemployed Physical Exam Vital Signs: Vital Signs: Last Vital Signs Temp 98.6 F 10/08/22 00:55 Pulse 76 10/08/22 00:55 Resp 18 10/08/22 00:55 BP 143/68 H 10/08/22 00:55 Pulse Ox 95 10/08/22 00:55 O2 Del Method 10/08/22 00:55 BMI result Body Mass Index 25.2 Const: Other: Appearance: Alert. Oriented X3. Somnolent, falls asleep talking, easily arousable Eyes: Pupils equal, round and reactive to light. ENT: Pharynx normal. Fractured tooth #7 Neck: Normal inspection. Neck supple. No lymph nodes noted. No crepitus CVS: Normal heart rate and rhythm. Pulses normal. Normal S1 and S2 Respiratory: No respiratory distress. Breath sounds normal. No Wheezing. No rales Abdomen: Soft and nontender. No rigidity. No distention. Skin: Skin warm and dry. Normal skin color. Normal skin turgor. Extremities: No lower extremity edema. No Lacerations. No Rash Neuro: Oriented X 3. No motor deficit. No sensory deficit. Moving all extremities. No slurred speech. CN 2 through 12 grossly intact Psych: calm, cooperative, normal affect Course Course Course Narrative: Patient was given 1 dose of IM Toradol and he was given clindamycin p.o.. Patient instructed to follow-up with his dentist. Medical Decision Making Medical Decision Making Differential Diagnoses: Differential diagnosis (Dental fracture, dental abscess, gingivitis) Discharge Plan Discharge Clinical Impression: Pain, dental Patient Disposition: Home, Self-Care Instructions: Toothache (ED) Additional Instructions: Please follow-up with your primary care physician tomorrow. If you have any worsening or new symptoms, please return to the emergency room or call 911 Prescriptions: New clindamycin HCl 150 mg capsule 150 mg PO TID 7 Days Qty: 21 0RF ibuprofen 600 mg tablet 600 mg PO Q8H PRN (Reason: fever or pain) Qty: 20 0RF No Action methadone [Methadone Intensol] 10 mg/mL Concentrate 100 mg PO DAILY
[2022-10-08] MEDS: Ketorolac Tromethamine 60 MG/2 ML VIAL IM (02:16)
[2022-10-08] MEDS: Clindamycin HCL 300 MG CAPSULE PO (02:18)
== END 2022-10-08 02:38 | disposition home or self-care (01) ==
PROVIDERS: Emergency Provider Emergency Medicine
DX: K08.89 Other specified disorders of teeth and supporting structures (principal); F17.210 Nicotine dependence, cigarettes, uncomplicated
CPT/HCPCS: 96372; 99283; 99284; J1885

== ENCOUNTER 2022-12-15 18:35 | Emergency (ER) | payer MEDICARE, MEDICAID, SELFPAY ==
[2022-12-15 18:48] VITALS: BP 180/30; PULSE 58; O2SAT 94
--- NOTE | 2022-12-15 18:57 | ED.OVERDOSE ---
HPI - Overdose General Chief Complaint: ETOH/Substance Use Stated Complaint: confused and falling Time Seen by Provider: 12/15/22 18:49 Source: patient and EMS Mode of arrival: EMS Limitations: no limitations History of Present Illness HPI Narrative: 42-year-old male homeless with history of street drugs abuse admitted to using 2 bags of heroin by shooting into IV. Patient is sleepy in the emergency department but easily arousable patient stated that I am homeless did not sleep for 4 days, all vital signs remain stable while patient is sleeping. Related Data Home Medications Medication Instructions Recorded Confirmed methadone 10 mg/mL oral 100 mg PO DAILY 06/03/22 06/03/22 concentrate (Methadone Intensol) Previous Rx's Medication Instructions Recorded clindamycin HCl 150 mg capsule 150 mg PO TID 7 days #21 caps 10/08/22 ibuprofen 600 mg tablet 600 mg PO Q8H PRN fever or pain 10/08/22 #20 tabs Allergies Allergy/AdvReac Type Severity Reaction Status Date / Time amoxicillin Allergy Anaphylaxis Verified 06/03/22 19:05 Penicillins Allergy Unknown Verified 10/08/22 00:55 Review of Systems Review of Systems: All other systems are reviewed and are negative Constitutional: Reports as per HPI and Reports no additional constitutional complaints Eyes: Reports as per HPI and Reports no additional eye complaints Reports system reviewed and no additional complaints, except as documented Cardiovascular: Reports as per HPI and Reports no additional cardiovascular complaints Respiratory: Reports as per HPI and Reports no additional respiratory complaints Gastrointestinal: Reports as per HPI and Reports no additional gastrointestinal complaints Genitourinary: Reports no additional female genitourinary complaints Musculoskeletal: Reports no additional musculoskeletal complaints Skin/Breast: Reports system reviewed and no additional complaints, except as docu Psychiatric: Reports no additional psychiatric complaints Endocrine: Reports no additional endocrine complaints Hematologic/Lymphatic: Reports no additional hematologic/lymphatic complaints Allergic/Immunologic: Reports no additional allergic/immunologic complaints Reports system reviewed and no additional complaints, except as documented and Reports Abnormal speech present [facility] Past Medical History Medical History Heart palpitations IVDU (intravenous drug user) Social History Social History Household Members: Other Housing: Homeless Do you presently have visiting nurse or other home services: No Alcohol intake: never Patient Tobacco Use Status: Current everyday Tobacco user Tobacco use type: Cigarette Smoked in Last 30 Days: Yes e-Cigarette/Vaping Use: Never Used Second Hand Smoke Exposure: No Use of substances other than those prescribed or required for medical reasons: Yes Substance Use Type: Heroin and IV Drugs Advance Directives: No Advance Directives Information Provided: No service: No Current occupational status: unemployed Physical Exam Vital Signs: Vital Signs: Last Vital Signs Temp 98.0 F 12/16/22 00:00 Pulse 55 12/16/22 00:00 Resp 16 12/16/22 00:00 BP 152/77 H 12/16/22 00:00 Pulse Ox 99 12/16/22 00:00 O2 Del Method 12/16/22 00:00 BMI result Body Mass Index 26.9 Vital signs have been reviewed as appeared to be correct. Blood pressure normal. Heart rate normal. Respiration rate normal. Temperature normal. Oxygen saturation normal. Appearance: Alert. Oriented X3. No acute distress. Head: Normal external exam. Normocephalic. Atraumatic. No Mcgarry signs noted. No raccoon eyes noted Eyes: PERRLA. EOMI. Conjunctiva and sclera normal. Eyelids normal. ENT: TM's Normal. Pharynx normal. Uvula midline. Moist mucous membranes. No trismus noted. No drooling noted. No muffled voice noted. Neck: Normal inspection. Neck supple. FROM. No adenopathy. Thyroid Normal. No meningeal signs. No neck mass noted. CVS: Normal heart rate and rhythm. Heart sound normal. No murmurs noted. Pulses normal throughout. Respiratory: No respiratory distress. Painless inspiration. Breath sounds normal. No wheezes/rales/rhonchi noted. Chest nontender. No accessory muscle usage noted or decreased air movement noted. Abdomen: Soft and nontender. Bowel sounds normal in all 4 quadrants. No distention noted. No organomegaly noted. No visible injury noted. Back: No CVA tenderness. Full range of motion noted. Skin: Skin warm and dry. Normal skin color. Normal skin turgor. No rashes/lesions/lacerations noted. Extremities: No lower extremity edema. Extremities exhibit normal range of motion. Extremities nontender. Neuro: Oriented X 3. Cranial nerve exam: II-XII are grossly intact No motor deficit. No sensory deficit. Reflexes normal. Course Course Course Narrative: Heroin overdoses accidentally, patient was observed in the emergency department for 6 hours stable vital signs will discharge. Medical Decision Making Differential Diagnosis Differential Diagnoses: The differential diagnosis associated with the presentation includes (Substance abuse, depression, SI, syncope.) Lab Data MDM Lab Attestation statement: I reviewed the patient's lab results. 12/15/22 20:27 12/15/22 20:27 Labs: Lab Results 12/15/22 12/15/22 Range/Units 20:27 20:27 WBC 8.5 (4.8-10.8) X10*3/uL RBC 4.51 L (4.60-5.80) X10*6/uL Hgb 13.1 L (14.0-18.0) g/dl Hct 39.2 L (42.0-52.0) % MCV 86.9 (80.0-98.0) fL MCH 29.0 (27.0-33.0) pg MCHC 33.4 (31.0-36.0) g/dl RDW 13.5 (11.0-16.0) % Plt Count 343 D (160-400) X10*3/uL MPV 9.8 (9.4-12.4) fL Immature Gran % (Auto) 0.2 (0.0-0.4) % Neut % (Auto) 48.6 (45-73) % Lymph % (Auto) 35.1 (20-40) % [place] % (Auto) 9.9 (2-11) % Eos % (Auto) 5.1 H (0-4) % Baso % (Auto) 1.1 (0-2) % Lymph # (Auto) 3.0 (1.2-4.9) X10*3/uL [place] # (Auto) 0.8 (0.1-1.2) X10*3/uL Eos # (Auto) 0.4 (0.0-0.4) X10*3/uL Baso # (Auto) 0.1 (0.0-0.2) X10*3/uL Abs Immat Gran (auto) 0.02 (0.00-0.03) X10*3/uL Absolute Neuts (auto) 4.1 (2.0-8.3) x10*3/uL Absolute Nucleated RBC 0.000 (0.0-0.012) X10*3/uL Nucleated RBC % (auto) 0.0 (0.0-0.2) /100WBC Sodium 139 (135-145) mmol/L Potassium 3.5 (3.3-5.1) mmol/L Chloride 106 (96-108) mmol/L Carbon Dioxide 24 (22-29) mmol/L Anion Gap 13 (12-20) BUN 17 H (9-16) mg/dL Creatinine 0.85 (0.5-1.4) mg/dL Estim Creat Clear Calc 118.0 Estimated GFR > 60 Random Glucose 145 H (60-115) mg/dL Calcium 8.8 D (8.4-10.2) mg/dL Total Creatine Kinase 465 H (38-174) U/L Discharge Plan Discharge Clinical Impression: Substance abuse Patient Disposition: Home, Self-Care Instructions: Polysubstance Abuse (ED) Prescriptions: No Action clindamycin HCl 150 mg capsule 150 mg PO TID 7 Days Qty: 21 0RF ibuprofen 600 mg tablet 600 mg PO Q8H PRN (Reason: fever or pain) Qty: 20 0RF methadone [Methadone Intensol] 10 mg/mL Concentrate 100 mg PO DAILY Interventions: [place]-Suicide Risk Severity Scale Last Done: 12/16/22 00:11
[2022-12-15 19:07] VITALS: BP 122/69; PULSE 63; RESP 16; TEMP 36.9; O2SAT 98; BMI 26.9
[2022-12-15 20:31] LABS: MANUAL DIFF FLAG NO
[2022-12-15 20:32] LABS: Basophils Absolute Auto 0.1 X10*3/uL (0.0-0.2); Basophils Percent Auto 1.1 % (0-2); Eosinophils Absolute Auto 0.4 X10*3/uL (0.0-0.4); Eosinophils Percent Auto 5.1 % (0-4); Hematocrit 39.2 % (42.0-52.0); Hemoglobin 13.1 g/dl (14.0-18.0); Imm Gran Abs Auto 0.02 X10*3/uL (0.00-0.03); Imm Gran Pct Auto 0.2 % (0.0-0.4); Lymphocytes Percent Auto 35.1 % (20-40); Mean Corpuscular HGB Conc 33.4 g/dl (31.0-36.0); Mean Corpuscular Volume 86.9 fL (80.0-98.0); Mean Platelet Volume 9.8 fL (9.4-12.4); Monocytes Absolute Auto 0.8 X10*3/uL (0.1-1.2); Monocytes Percent Auto 9.9 % (2-11); Neutrophils Absolute Auto 4.1 x10*3/uL (2.0-8.3); Neutrophils Percent Auto 48.6 % (45-73); Platelet Count 343 X10*3/uL (160-400); Red Blood Count 4.51 X10*6/uL (4.60-5.80); Red Cell Distribution Width 13.5 % (11.0-16.0); White Blood Count 8.5 X10*3/uL (4.8-10.8)
[2022-12-15 20:33] VITALS: BP 127/70; PULSE 58; RESP 12; TEMP 36.2; O2SAT 97
[2022-12-15 20:54] LABS: Anion Gap 13 (12-20); Blood Urea Nitrogen 17 mg/dL (9-16); Calcium 8.8 mg/dL (8.4-10.2); Carbon Dioxide 24 mmol/L (22-29); Chloride 106 mmol/L (96-108); Estimated Glomerular Filt Rate > 60; Glucose Random 145 mg/dL (60-115); Potassium 3.5 mmol/L (3.3-5.1); Sodium 139 mmol/L (135-145)
[2022-12-16] VITALS: BP 152/77; PULSE 55; RESP 16; TEMP 36.7; O2SAT 99
--- NOTE | 2022-12-16 | MHC.EDTECH ---
this pct assumed care of pt at 2300 ,vitals sign taken pt sleeping ,waiting on urine sample .
--- NOTE | 2022-12-16 00:16 | PC.NURSE ---
Pt HYLTON x3 sleepy VSS. Pt declines needing to urinate at this time.
[2022-12-16 01:52] VITALS: BP 140/71; PULSE 50; RESP 16; TEMP 36.8; O2SAT 98
--- NOTE | 2022-12-16 01:52 | MHC.EDTECH ---
0200 rounding done ,vitals sign taken ,pt sleeping ,still waiting for urine sample .
[2022-12-16 05:03] VITALS: BP 134/71; PULSE 60; RESP 18; O2SAT 99
[2022-12-16] MEDS: Naloxone HCl Nasal TAKE HOME 4 MG SPRAY NOSTRILALT (06:02)
== END 2022-12-16 06:33 | disposition home or self-care (01) ==
PROVIDERS: Emergency Provider Emergency Medicine
DX: R40.0 Somnolence (principal); T40.1X1A Poisoning by heroin, accidental (unintentional), initial encounter; F19.10 Other psychoactive substance abuse, uncomplicated; Y92.9 Unspecified place or not applicable; F11.20 Opioid dependence, uncomplicated; F17.210 Nicotine dependence, cigarettes, uncomplicated
CPT/HCPCS: 36415; 80048; 82550; 85025; 99285

== ENCOUNTER 2023-03-16 21:18 | Emergency (ER) | payer MEDICARE, MEDICAID, SELFPAY ==
--- NOTE | ~2023-03-16 | XR_ITS ---
EXAMINATION: XR CHEST CLINICAL INFORMATION: Shortness of breath COMPARISON: None available. TECHNIQUE: Frontal view of the chest was obtained. FINDINGS: Normal symmetric lung volumes. No parenchymal consolidation. No pleural effusion. No pneumothorax. Cardiomediastinal silhouette and pulmonary vascularity are within normal limits. No acute osseous abnormalities. XR/XR chest 1V IMPRESSION: Clear lungs
[2023-03-16 21:25] VITALS: BP 130/70; PULSE 96; O2SAT 99
[2023-03-16 21:27] VITALS: BP 112/61; PULSE 61; RESP 16; TEMP 36.7; BMI 21.8
--- NOTE | 2023-03-16 21:27 | ED.GENADULT ---
HPI - General Adult General Chief complaint: Arrhythmia/Palpitations Stated complaint: SOB Time Seen by Provider: 03/16/23 21:25 Source: patient Mode of arrival: EMS Limitations: no limitations History of Present Illness HPI narrative: Patient comes [facility] emergency room from [facility]. Patient complaining of palpitations and shortness of breath. Patient known to use drugs. Patient denies chest pain Related Data Home Medications Medication Instructions Recorded Confirmed methadone 10 mg/mL oral 100 mg PO DAILY 06/03/22 06/03/22 concentrate (Methadone Intensol) Previous Rx's Medication Instructions Recorded clindamycin HCl 150 mg capsule 150 mg PO TID 7 days #21 caps 10/08/22 ibuprofen 600 mg tablet 600 mg PO Q8H PRN fever or pain 10/08/22 #20 tabs Allergies Allergy/AdvReac Type Severity Reaction Status Date / Time amoxicillin Allergy Anaphylaxis Verified 06/03/22 19:05 Penicillins Allergy Unknown Verified 10/08/22 00:55 Review of Systems Review of Systems: Constitutional : No Weight loss, No Fever, No Chills, No Night Sweats, No Fatigue, No Malaise ENT/Mouth : No Hearing loss, No Ear Pain, No Nasal Congestion, No Sinus Pain, No Hoarseness, No sore throat, No Rhinorrhea, No Swallowing Difficulty Eyes: No Eye Pain, No Swelling, No Redness, No Foreign Body, No Discharge, No Vision Changes Cardiovascular : No Chest Pain, complaining of SOB, No Dyspnea on Exertion, No Orthopnea, No Edema, complaining of Palpitations Respiratory : No Cough, No Sputum, No Wheezing, No Smoke Exposure, No Dyspnea Gastrointestinal : No Nausea, No Vomiting, No Diarrhea, No Constipation, No abdominal Pain, No Hematochezia, No Melena Genitourinary : no irregular bleeding, No Dysuria, No Urinary Frequency, No Hematuria, No Urinary Incontinence, No Urgency, No Flank Pain, No Urinary Flow Changes, No Hesitancy Musculoskeletal : No joint pain, No Myalgias, No Joint Swelling Skin : No Skin Lesions, No rash Neuro : No Weakness, No Numbness, No Paresthesias, No Loss of Consciousness, No Dizziness, No Headache Psych : No Anxiety/Panic, No Depression, No SI/HI/AH/VH, known to use drugs Heme/Lymph: No Bruising, No Bleeding,No Lymphadenopathy Endocrine : No Polyuria, No Polydipsia, No Temperature Intolerance [facility] Past Medical History Medical History Heart palpitations IVDU (intravenous drug user) Social History Social History Household Members: Other Housing: Homeless Do you presently have visiting nurse or other home services: No Alcohol intake: never Patient Tobacco Use Status: Current everyday Tobacco user Tobacco use type: Cigarette e-Cigarette/Vaping Use: Never Used Second Hand Smoke Exposure: No Substance Use Type: Heroin and IV Drugs Advance Directives: No Advance Directives Information Provided: Yes service: No Current occupational status: unemployed Physical Exam ED Vital Signs: Vital Signs - 24 hr 03/16/23 21:27 03/16/23 22:06 03/17/23 00:11 Temperature 98.1 F 98.4 F 98.1 F Pulse Rate 61 73 48 L Respiratory Rate 16 16 14 Blood Pressure 112/61 154/71 H 118/61 Pulse Oximetry 91 L 99 Oxygen Delivery Method Room Air Room Air Room Air BMI result Body Mass Index 21.8 Const Other: Appearance: Alert. Oriented X3. No acute distress. Eyes: Pupils equal, round and reactive to light. ENT: Pharynx normal. Neck: Normal inspection. Neck supple. No lymph nodes noted. No crepitus CVS: Normal heart rate and rhythm. Pulses normal. Normal S1 and S2 Respiratory: No respiratory distress. Breath sounds normal. No Wheezing. No rales Abdomen: Soft and nontender. No rigidity. No distention. Skin: Skin warm and dry. Normal skin color. Normal skin turgor. Extremities: No lower extremity edema. No Lacerations. No Rash Neuro: Oriented X 3. No motor deficit. No sensory deficit. Moving all extremities. No slurred speech. CN 2 through 12 grossly intact Psych: calm, cooperative, normal affect Course Course Course Narrative: -patient's labs pending -vital stable Medical Decision Making Medical Decision Making MDM Narrative: -patient's white blood cell count likely reactive leukocytosis. Patient has no source of infection. Patient did not provide a urine sample. Patient has no UTI symptoms. -my interpretation of chest x-ray: No pneumonia/infiltrates -oxygen saturation 99% on room air -patient complaining of feeling anxious, it has been raining outside, patient is homeless. -patient's heart rate sinus rhythm, between 50 and 60, asymptomatic in the emergency room, sleeping comfortably, vitals stable, oxygen saturation 99% on -may interpretation of EKG: Sinus bradycardia, heart rate 56, no ST segment depression or elevation, no T-wave inversion, QTC 424, troponin negative Differential Diagnosis Differential Diagnoses: The differential diagnosis associated with the presentation includes Lab Data MDM Lab Attestation statement: I reviewed the patient's lab results. 03/16/23 22:16 03/16/23 22:16 Labs: Lab Results 03/16/23 03/16/23 03/16/23 Range/Units 22:16 22:16 22:16 WBC 15.9 H (4.8-10.8) X10*3/uL RBC 4.46 L (4.60-5.80) X10*6/uL Hgb 13.0 L (14.0-18.0) g/dl Hct 39.3 L (42.0-52.0) % MCV 88.1 (80.0-98.0) fL MCH 29.1 (27.0-33.0) pg MCHC 33.1 (31.0-36.0) g/dl RDW 13.5 (11.0-16.0) % Plt Count 369 (160-400) X10*3/uL MPV 9.6 (9.4-12.4) fL Immature Gran % (Auto) 0.3 (0.0-0.4) % Neut % (Auto) 65.0 (45-73) % Lymph % (Auto) 25.2 (20-40) % [place] % (Auto) 7.1 (2-11) % Eos % (Auto) 1.6 (0-4) % Baso % (Auto) 0.8 (0-2) % Lymph # (Auto) 4.0 (1.2-4.9) X10*3/uL [place] # (Auto) 1.1 (0.1-1.2) X10*3/uL Eos # (Auto) 0.3 (0.0-0.4) X10*3/uL Baso # (Auto) 0.1 (0.0-0.2) X10*3/uL Abs Immat Gran (auto) 0.05 H (0.00-0.03) X10*3/uL Absolute Neuts (auto) 10.4 H (2.0-8.3) x10*3/uL Absolute Nucleated RBC 0.000 (0.0-0.012) X10*3/uL Nucleated RBC % (auto) 0.0 (0.0-0.2) /100WBC Sodium 137 (135-145) mmol/L Potassium 5.1 D (3.3-5.1) mmol/L Chloride 101 (96-108) mmol/L Carbon Dioxide 29 (22-29) mmol/L Anion Gap 12 (12-20) BUN 20 H (9-16) mg/dL Creatinine 1.00 (0.5-1.4) mg/dL Estim Creat Clear Calc 89.2 Estimated GFR > 60 Random Glucose 80 (60-115) mg/dL Calcium 9.8 D (8.4-10.2) mg/dL Troponin I High Sens 3.2 (<3.5-35.0) ng/L Radiology Impression Discussion of test interpretation with radiology: I have reviewed the radiologist's reading. Radiologist Impression: INDINGS: Normal symmetric lung volumes. No parenchymal consolidation. No pleural effusion. No pneumothorax.? Cardiomediastinal silhouette and pulmonary vascularity are within normal limits. No acute osseous abnormalities. XR/XR chest 1V IMPRESSION: Clear lungs Discharge Plan Discharge Clinical Impression: Palpitations Patient Disposition: Home, Self-Care Instructions: Heart Palpitations (ED) Additional Instructions: Please follow-up with your primary care physician tomorrow. If you have any worsening or new symptoms, please return to the emergency room or call 911 Prescriptions: No Action clindamycin HCl 150 mg capsule 150 mg PO TID 7 Days Qty: 21 0RF ibuprofen 600 mg tablet 600 mg PO Q8H PRN (Reason: fever or pain) Qty: 20 0RF methadone [Methadone Intensol] 10 mg/mL Concentrate 100 mg PO DAILY
--- NOTE | 2023-03-16 22:01 | ECG_ITS ---
Test Reason : CHEST PAIN Blood Pressure : / mmHG Vent. Rate : 056 BPM Atrial Rate : 056 BPM P-R Int : 106 ms QRS Dur : 080 ms QT Int : 440 ms P-R-T Axes : 050 063 060 degrees QTc Int : 424 ms Sinus bradycardia with short SD Otherwise normal ECG When compared with ECG of 03-JUN-2022 10:38, No significant change was found Referred By: Brad Lopez Electronically Signed By:Laurent Chu
[2023-03-16 22:06] VITALS: BP 154/71; PULSE 73; RESP 16; TEMP 36.9; O2SAT 91
[2023-03-16 22:23] LABS: MANUAL DIFF FLAG NO
[2023-03-16 22:24] LABS: Basophils Absolute Auto 0.1 X10*3/uL (0.0-0.2); Basophils Percent Auto 0.8 % (0-2); Eosinophils Absolute Auto 0.3 X10*3/uL (0.0-0.4); Eosinophils Percent Auto 1.6 % (0-4); Hematocrit 39.3 % (42.0-52.0); Imm Gran Abs Auto 0.05 X10*3/uL (0.00-0.03); Imm Gran Pct Auto 0.3 % (0.0-0.4); Lymphocytes Percent Auto 25.2 % (20-40); Mean Corpuscular HGB Conc 33.1 g/dl (31.0-36.0); Mean Corpuscular Hemoglobin 29.1 pg (27.0-33.0); Mean Corpuscular Volume 88.1 fL (80.0-98.0); Mean Platelet Volume 9.6 fL (9.4-12.4); Monocytes Absolute Auto 1.1 X10*3/uL (0.1-1.2); Monocytes Percent Auto 7.1 % (2-11); Neutrophils Absolute Auto 10.4 x10*3/uL (2.0-8.3); Platelet Count 369 X10*3/uL (160-400); Red Blood Count 4.46 X10*6/uL (4.60-5.80); Red Cell Distribution Width 13.5 % (11.0-16.0); White Blood Count 15.9 X10*3/uL (4.8-10.8)
[2023-03-16 22:46] LABS: Anion Gap 12 (12-20); Blood Urea Nitrogen 20 mg/dL (9-16); Calcium 9.8 mg/dL (8.4-10.2); Carbon Dioxide 29 mmol/L (22-29); Chloride 101 mmol/L (96-108); Creatinine Clr Calc Pharmacy 89.2; Estimated Glomerular Filt Rate > 60; Glucose Random 80 mg/dL (60-115); Potassium 5.1 mmol/L (3.3-5.1); Sodium 137 mmol/L (135-145)
[2023-03-16 22:47] LABS: Troponin-I High Sensitivity 3.2 ng/L (<3.5-35.0)
[2023-03-17 00:11] VITALS: BP 118/61; PULSE 48; RESP 14; TEMP 36.7; O2SAT 99
== END 2023-03-17 02:25 | disposition home or self-care (01) ==
PROVIDERS: Emergency Provider Emergency Medicine
DX: R00.2 Palpitations (principal); R06.02 Shortness of breath; F11.20 Opioid dependence, uncomplicated; Z79.899 Other long term (current) drug therapy
CPT/HCPCS: 36415; 71045; 80048; 84484; 85025; 93005; 99283; 99284

== ENCOUNTER 2023-04-06 18:53 | Emergency (ER) | payer MEDICARE, MEDICAID, SELFPAY ==
--- NOTE | ~2023-04-06 | XR_ITS ---
EXAMINATION: XR CHEST CLINICAL INFORMATION: Shortness of breath COMPARISON: Prior chest February 2023 TECHNIQUE: 2 views of the chest were obtained. FINDINGS: No significant abnormality is noted involving the heart, lungs, mediastinum, bony thorax or soft tissues. XR/XR chest 2V IMPRESSION: Unremarkable examination.
[2023-04-06 19:03] VITALS: BP 145/94; PULSE 111; RESP 20; TEMP 37.4; O2SAT 97; BMI 22.0
--- NOTE | 2023-04-06 19:03 | ED_ITS ---
HPI - SOB/Dyspnea General Chief Complaint: Dyspnea Stated Complaint: sob,sweating Related Data Home Medications Medication Instructions Recorded Confirmed methadone 10 mg/mL oral 100 mg PO DAILY 06/03/22 06/03/22 concentrate (Methadone Intensol) Previous Rx's Medication Instructions Recorded clindamycin HCl 150 mg capsule 150 mg PO TID 7 days #21 caps 10/08/22 ibuprofen 600 mg tablet 600 mg PO Q8H PRN fever or pain 10/08/22 #20 tabs Allergies Allergy/AdvReac Type Severity Reaction Status Date / Time amoxicillin Allergy Anaphylaxis Verified 06/03/22 19:05 Penicillins Allergy Unknown Verified 10/08/22 00:55 [facility] Past Medical History Medical History Heart palpitations IVDU (intravenous drug user) Social History Social History Household Members: Other Housing: Homeless Do you presently have visiting nurse or other home services: No Alcohol intake: never Patient Tobacco Use Status: Current everyday Tobacco user Tobacco use type: Cigarette e-Cigarette/Vaping Use: Never Used Second Hand Smoke Exposure: No Substance Use Type: Heroin and IV Drugs Advance Directives: No Advance Directives Information Provided: No service: No Current occupational status: unemployed Physical Exam Vital Signs: Vital Signs: Last Vital Signs Temp 99.4 F 04/06/23 19:03 Pulse 111 H 04/06/23 19:03 Resp 20 04/06/23 19:03 BP 145/94 H 04/06/23 19:03 Pulse Ox 97 04/06/23 19:03 O2 Del Method Room Air 04/06/23 19:03 BMI result Body Mass Index 22.0 Course Course Course Narrative: RME - 42 y/o male with history of opiate use disorder on methadone presents to the ER for evaluation of SOB and sweating episodes that started today. He admits to using a couple bags of fentanyl and smoking crack today after he missed his methadone dose. Tachycardic 110s in triage. no chest pain Plan: EKG, CXR, labs. utox Reevaluation(s) Reevaluation #1: patient eloped from the ER Discharge Plan Discharge Clinical Impression: Drug use Patient Disposition: Elopement Prescriptions: No Action clindamycin HCl 150 mg capsule 150 mg PO TID 7 Days Qty: 21 0RF ibuprofen 600 mg tablet 600 mg PO Q8H PRN (Reason: fever or pain) Qty: 20 0RF methadone [Methadone Intensol] 10 mg/mL Concentrate 100 mg PO DAILY Interventions: ED Discharge Assessment Last Done: 04/07/23 01:12 Discharge Date/Time: 04/07/23 01:12
--- NOTE | 2023-04-06 19:26 | MHC.EDTECH ---
Patient refused blood draw and EKG if this tech couldn't guaranty that he would be able to get his methadone, patient was informed that this pct could not tell him what the provider would or would not be able to give him medication raygoza. Patient then said blood work and EKG were pointless.
== END 2023-04-07 01:12 | disposition left against medical advice (07) ==
PROVIDERS: Emergency Provider Emergency Medicine
DX: R06.02 Shortness of breath (principal); F11.20 Opioid dependence, uncomplicated; F17.210 Nicotine dependence, cigarettes, uncomplicated; R00.0 Tachycardia, unspecified
CPT/HCPCS: 71046; 99282; 99283

== ENCOUNTER 2024-07-02 13:41 | Inpatient (IN) | payer MEDICARE, MEDICAID, SELFPAY ==
[2024-07-02 13:57] VITALS: BP 119/86; BP 142/88; PULSE 84; PULSE 90; RESP 18; TEMP 37.2; O2SAT 97; O2SAT 98; BMI 34.2
--- NOTE | 2024-07-02 13:59 | ED_ITS ---
HPI - General Adult General Chief complaint: General Medical Stated complaint: BODY PAIN, MISSED METHADONE Time Seen by Provider: 07/02/24 15:21 Source: patient Mode of arrival: ambulatory Limitations: no limitations History of Present Illness ED Provider: yayo RILEY narrative: Patient is a 43-year-old male with history of opioid use disorder currently on 115 mg of methadone at [facility] currently experiencing homelessness presenting to the emergency department complaining of feeling generalized muscle aches, fatigue since yesterday. States that he was walking around outdoors yesterday, not drinking any water, used crack cocaine as well as heroin. States his symptoms feel similar to previous episode of rhabdomyolysis. Also complains of nausea but denies vomiting. Reports sweating, feels hot. Denies urinary symptoms. Denies chest pain, palpitations, dyspnea. Denies abdominal pain. Also requesting assistance with detox. complaint: body aches Onset (ago): day(s) Treatments prior to arrival: none Related Data Home Medications ?Medication ?Instructions ?Recorded ?Confirmed methadone 10 mg/mL oral 100 mg PO DAILY 06/03/22 06/03/22 concentrate (Methadone Intensol) Previous Rx's ?Medication ?Instructions ?Recorded clindamycin HCl 150 mg capsule 150 mg PO TID 7 days #21 caps 10/08/22 ibuprofen 600 mg tablet 600 mg PO Q8H PRN fever or pain 10/08/22 #20 tabs Allergies Allergy/AdvReac Type Severity Reaction Status Date / Time amoxicillin Allergy Anaphylaxis Verified 07/02/24 14:01 Penicillins Allergy Unknown Verified 07/02/24 14:01 Review of Systems 2 Review of Systems: as per hpi Yes all other systems are reviewed and are negative Constitutional: Constitutional: Reports as per HPI [facility] Past Medical History Medical History Heart palpitations IVDU (intravenous drug user) Social History Social History Household Members: Other Housing: Homeless Do you presently have visiting nurse or other home services: No Alcohol intake: never Patient Tobacco Use Status: Current everyday Tobacco user Tobacco use type: Cigarette Smoked in Last 30 Days: No e-Cigarette/Vaping Use: Never Used Second Hand Smoke Exposure: No Substance Use Type: Crack/Cocaine and Opiates Substance Use Frequency: Chronic Longstanding Last Used Substance: Just Prior to Admission Advance Directives: No Advance Directives Information Provided: No Do you have a plan to hurt others: No Plan service: No Current occupational status: unemployed Physical Exam ED Vital Signs: Vital Signs - 24 hr 07/02/24 13:57 07/02/24 16:00 Temperature 98.9 F Pulse Rate 84 77 Respiratory Rate 18 16 Blood Pressure 119/86 122/74 Pulse Oximetry 97 100 Oxygen Delivery Method Room Air Room Air BMI result Body Mass Index 34.2 Vital signs have been reviewed and appear to be correct. Blood pressure normal. Heart rate normal. Respiratory rate normal. Temperature normal. Oxygen saturation normal. Const General: cooperative, healthy appearing and no acute distress Orientation/consciousness: oriented to person, oriented to place, oriented to time and patient oriented x3 Limitations: no limitations HENMT Head: Yes normocephalic and Yes atraumatic Ears: external ears normal General nose exam: Normal external nose present Face and sinus: Yes face symmetric Mouth: oropharynx normal and moist mucous membranes Throat: Yes uvula midline Eyes Pupils: Equal, round and reactive pupils present Neck Neck: Yes normal visual inspection and Yes supple Resp Effort & Inspection: normal respiratory effort and able to speak in complete sentences Auscultation: clear to auscultation bilaterally Cardio Rate: regular rate Rhythm: regular rhythm Heart sounds: S1 normal heart sound present and S2 normal heart sound present GI Palpation (GI): Soft to palpation and nontender Auscultation: normoactive bowel sounds General: Yes no CVA tenderness Back/Spine/Pelvis Back: no CVA tenderness Skin Other: flushed General skin exam: elasticity normal and turgor normal Neuro General: oriented to person, oriented to place, oriented to time, patient oriented x3, moves all extremities, no focal motor deficits and CN's II-XI intact bilaterally Cranial nerves: Yes Equal, round and reactive pupils present Cognition (Neuro): normal cognition Extrem General: Yes full ROM, Yes no pedal edema and Yes no calf tenderness Psych Mental Status: mental status grossly normal Affect: normal affect Thought process: Normal thought process present Course Course Course Narrative: This is a Rapid Medical Examination (RME) performed by Tha Lopez PA-C in triage. Full HPI, ROS, assessment and treatment plan per primary provider in the Main ED. 43 yo male with history of opioid use disorder on methadone 115 mg per day, last dosed 2 days ago at [facility] in [place] who presents to the ER via EMS for evaluation of decreased PO intake, sweating, nausea, muscle aches and concerns for dehydration. No vomiting or diarrhea. Reports history of rhabdomyolysis that felt similar. Plan: lab workup, verify methadone dose, IVF if needed Medications Administered Discontinued Medications Generic Name Dose Route Start Last Admin Trade Name Sarbjit PRN Reason Stop Dose Admin Sodium Chloride 1,000 mls @ 999 mls/hr 07/02/24 14:45 07/02/24 17:59 Ns IVCONT 07/02/24 16:45 Infused .Q1H1M CHRISSY Infusion Sodium Chloride 1,000 mls @ 999 mls/hr 07/02/24 17:15 07/02/24 18:06 Ns IV 07/02/24 18:15 999 mls/hr .Q1H1M CHRISSY Administration Sodium Chloride 1,000 mls @ 999 mls/hr 07/02/24 17:15 07/02/24 18:06 Ns IV 07/02/24 18:15 999 mls/hr .Q1H1M CHRISSY Administration Medical Decision Making Medical Decision Making [facility] Narrative: Patient is a 43-year-old male with history of opioid use disorder currently on 115 mg of methadone at [facility] currently experiencing homelessness presenting to the emergency department complaining of feeling generalized muscle aches, fatigue since yesterday. On exam patient is awake, A+Ox3, VS WNL, afebrile, normal neurological exam without focal deficits, physical exam findings as above. Given reported symptoms and physical exam findings, initial differential includes dehydration, electrolyte abnormality, rhabdomyolysis, marsha. Labs notable for leukocytosis, hyponatremia, MARSHA, elevated transaminases, elevated CK. IV fluids ordered. Differential Diagnosis Differential Diagnoses: The differential diagnosis associated with the presentation includes As per [facility] Admission/Observation Consideration of admission/observation: Escalation of care including admission/observation considered Consult Healthcare Provider Management of the patient was discussed with: Hospitalist (Dr. Moore) Lab Data [facility] Lab Attestation statement: I reviewed the patient's lab results. As per [facility] 07/02/24 14:09 07/02/24 14:09 Labs: Lab Results 07/02/24 07/02/24 Range/Units 14:09 18:10 WBC 16.1 H (4.8-10.8) X10*3/uL RBC 4.77 (4.60-5.80) X10*6/uL Hgb 14.8 (14.0-18.0) g/dl Hct 40.3 L (42.0-52.0) % MCV 84.5 (80.0-98.0) fL MCH 31.0 (27.0-33.0) pg MCHC 36.7 H (31.0-36.0) g/dl RDW 11.9 (11.0-16.0) % Plt Count 352 (160-400) X10*3/uL MPV 10.3 (9.4-12.4) fL Immature Gran % (Auto) 0.3 (0.0-0.4) % Neut % (Auto) 73.5 H (45-73) % Lymph % (Auto) 16.6 L (20-40) % [place] % (Auto) 9.1 (2-11) % Eos % (Auto) 0.1 (0-4) % Baso % (Auto) 0.4 (0-2) % Lymph # (Auto) 2.7 (1.2-4.9) X10*3/uL [place] # (Auto) 1.5 H (0.1-1.2) X10*3/uL Eos # (Auto) 0.0 (0.0-0.4) X10*3/uL Baso # (Auto) 0.1 (0.0-0.2) X10*3/uL Abs Immat Gran (auto) 0.05 H (0.00-0.03) X10*3/uL Absolute Neuts (auto) 11.8 H (2.0-8.3) x10*3/uL Absolute Nucleated RBC 0.000 (0.0-0.012) X10*3/uL Nucleated RBC % (auto) 0.0 (0.0-0.2) /100WBC Sodium 129 L (135-145) mmol/L Potassium 4.3 (3.3-5.1) mmol/L Chloride 94 L (96-108) mmol/L Carbon Dioxide 20 L (22-29) mmol/L Anion Gap 19 (12-20) BUN 50 H (9-16) mg/dL Creatinine 1.96 H (0.5-1.4) mg/dL Estim Creat Clear Calc 56.8 Estimated GFR 38 Random Glucose 112 (60-115) mg/dL Calcium 10.2 (8.4-10.2) mg/dL Magnesium 2.5 (1.6-2.6) mg/dL Total Bilirubin 1.2 H (0.0-1.0) mg/dL Direct Bilirubin 0.3 (0.0-0.5) mg/dL AST 199 H (5-37) U/L ALT 60 H (0-40) U/L Alkaline Phosphatase 113 (39-117) U/L Total Creatine Kinase 7273 H (38-174) U/L Total Protein 8.8 H (6.5-8.0) g/dL Albumin 5.0 (3.5-5.0) g/dL Urine Color Yellow Urine Appearance Clear Urine pH 5.5 (5.0-9.0) Ur Specific [place] 1.010 (1.005-1.025) Urine Protein Negative (Neg-Trace) mg/dL Urine Glucose (UA) Negative (Negative) mg/dL Urine Ketones Negative (Negative) mg/dL Urine Blood Negative (Negative) Urine Nitrite Negative (Negative) Ur Leukocyte Esterase Negative (Negative) Urine Opiates Screen POSITIVE H (Not Detect) Ur Buprenorphine Scrn Not Detected (Not Detect) ng/mL Ur Oxycodone Screen Not Detected (Not Detect) ng/mL Urine Methadone Screen Positive H (Not Detect) ng/mL Urine Fentanyl Screen POSITIVE H (Not Detect) Ur Barbiturates Screen Not Detected (Not Detect) Ur Phencyclidine Scrn Not Detected (Not Detect) Ur Amphetamines Screen Not Detected (Not Detect) U Benzodiazepines Scrn Not Detected (Not Detect) Urine Cocaine Screen POSITIVE H (Not Detect) U Marijuana (THC) Screen Not Detected (Not Detect) External Record Review External record reviewed: Inpatient record and Office record Discharge Plan Discharge Prescriptions: No Action clindamycin HCl 150 mg capsule 150 mg PO TID 7 Days Qty: 21 0RF ibuprofen 600 mg tablet 600 mg PO Q8H PRN (Reason: fever or pain) Qty: 20 0RF methadone [Methadone Intensol] 10 mg/mL Concentrate 100 mg PO DAILY Print Language: Bulgarian
[2024-07-02 14:12] LABS: MANUAL DIFF FLAG NO
[2024-07-02 14:15] LABS: Basophils Absolute Auto 0.1 X10*3/uL (0.0-0.2); Basophils Percent Auto 0.4 % (0-2); Eosinophils Percent Auto 0.1 % (0-4); Hematocrit 40.3 % (42.0-52.0); Hemoglobin 14.8 g/dl (14.0-18.0); Imm Gran Abs Auto 0.05 X10*3/uL (0.00-0.03); Imm Gran Pct Auto 0.3 % (0.0-0.4); Lymphocytes Absolute Auto 2.7 X10*3/uL (1.2-4.9); Lymphocytes Percent Auto 16.6 % (20-40); Mean Corpuscular HGB Conc 36.7 g/dl (31.0-36.0); Mean Corpuscular Volume 84.5 fL (80.0-98.0); Mean Platelet Volume 10.3 fL (9.4-12.4); Monocytes Absolute Auto 1.5 X10*3/uL (0.1-1.2); Monocytes Percent Auto 9.1 % (2-11); Neutrophils Absolute Auto 11.8 x10*3/uL (2.0-8.3); Neutrophils Percent Auto 73.5 % (45-73); Platelet Count 352 X10*3/uL (160-400); Red Blood Count 4.77 X10*6/uL (4.60-5.80); Red Cell Distribution Width 11.9 % (11.0-16.0); White Blood Count 16.1 X10*3/uL (4.8-10.8)
[2024-07-02 14:34] LABS: Alanine Aminotransferase 60 U/L (0-40); Alkaline Phosphatase 113 U/L (39-117); Anion Gap 19 (12-20); Aspartate Amino Transferase 199 U/L (5-37); Bilirubin Direct 0.3 mg/dL (0.0-0.5); Bilirubin Total 1.2 mg/dL (0.0-1.0); Blood Urea Nitrogen 50 mg/dL (9-16); Calcium 10.2 mg/dL (8.4-10.2); Carbon Dioxide 20 mmol/L (22-29); Chloride 94 mmol/L (96-108); Creatinine Clr Calc Pharmacy 56.8; Estimated Glomerular Filt Rate 38; Glucose Random 112 mg/dL (60-115); Magnesium 2.5 mg/dL (1.6-2.6); Potassium 4.3 mmol/L (3.3-5.1); Sodium 129 mmol/L (135-145); Total Protein 8.8 g/dL (6.5-8.0)
--- OUTSIDE RECORDS SUMMARY | 2024-07-02 15:20 | XMS_ITS | Continuity of Care Document ---
Author Organization [facility] Address [address] [place] [id number] Care Team Providers Care Windlace Machine Operator Name Role Phone Not on Staff, PCP Primary Care Physician Unavail able Encounter [facility] Date(s): 03/04/24 - 04/03/24 [facility] [address] [place] [id number] Attending Physician: Jones Marino Admitting Physician: AdmJones wagner Referring Physician: Admtr [id number] Patient Care team information Care Team Personnel Name: Not on Staff, PCP Position: S Physician (General Medicine) Member Role: PCP
--- OUTSIDE RECORDS SUMMARY | 2024-07-02 15:20 | XMS_ITS | Continuity of Care Document ---
Author Organization [facility] Address [address] [place] [id number] Care Team Providers Care Medical Office Assistant Instructor Name Role Phone Not on Staff, PCP Primary Care Physician Unavail able Encounter [facility] Date(s): 01/30/24 - 04/03/24 [facility] [address] [place] [id number] Attending Physician: Vania Royal MD Admitting Physician: Vania Royal MD Referring Physician: Jennifer HU, [facility] Patient Care team information Care Team Personnel Name: Not on Staff, PCP Position: S Physician (General Medicine) Member Role: PCP
[2024-07-02] MEDS: 0.9 % Sodium Chloride 1,000 ML 999 ML IVCONT ×2 (15:28→16:04)
[2024-07-02 16:00] VITALS: BP 122/74; PULSE 77; RESP 16; O2SAT 100
[2024-07-02] MEDS: 0.9 % Sodium Chloride 1,000 ML 999 ML IV ×2 (18:06)
[2024-07-02 18:18] LABS: Appearance Urine Clear; Color Urine Yellow; Glucose Urine UA Negative (Negative); Leukocyte Esterase Urine Negative (Negative); Nitrite Urine Negative (Negative); PH 5.5 (5.0-9.0); Urine Blood Negative (Negative); Urine Ketones Negative (Negative); Urine Protein Negative (Neg-Trace)
[2024-07-02 18:34] LABS: Amphetamine Screen Urine Not Detected (Not Detect); Barbiturates, Urine Not Detected (Not Detect); Benzodiazepines Screen Urine Not Detected (Not Detect); Buprenorphine Scr Not Detected (Not Detect); Cannabinoid Screen Urine Not Detected (Not Detect); Cocaine Screen Urine POSITIVE (Not Detect); Fentanyl, urine POSITIVE (Not Detect); Methadone Screen, Urine Positive (Not Detect); Opiate Screen Urine POSITIVE (Not Detect); Oxycodone Screen Urine Not Detected (Not Detect); Phencyclidine Screen Urine Not Detected (Not Detect)
--- NOTE | 2024-07-02 19:06 | PM.IMHP ---
History of Present Illness Date of Service: 07/02/24 Chief Complaint: weakness 43M PMH polysubstance abuse, cocaine induced HI, HCV s/p treatment, hld, presented with weakness. Patient states that symptoms have been going on for about a day and half. He has been using cocaine and opiates. Has not been drinking much and has been outside in heat. Reports diffuse body aches and fatigue, denies any specific muscle weakness. Denies any period of loss of consciousness. Denies shortness of breath or chest pain. In ED noted to have acute kidney injury with a creatinine of 1.96 and rhabdomyolysis with a CPK above 7000. Review of Systems Review of Systems: Yes all other systems are reviewed and are negative [facility] Medical History Heart palpitations IVDU (intravenous drug user) Social History Household Members: Other Housing: Homeless Do you presently have visiting nurse or other home services: No Alcohol intake: never Patient Tobacco Use Status: Current everyday Tobacco user Tobacco use type: Cigarette Smoked in Last 30 Days: No e-Cigarette/Vaping Use: Never Used Second Hand Smoke Exposure: No Substance Use Type: Crack/Cocaine and Opiates Substance Use Frequency: Chronic Longstanding Last Used Substance: Just Prior to Admission Advance Directives: No Advance Directives Information Provided: No Do you have a plan to hurt others: No Plan service: No Current occupational status: unemployed Meds Allergies Allergy/AdvReac Type Severity Reaction Status Date / Time amoxicillin Allergy Anaphylaxis Verified 07/02/24 14:01 Penicillins Allergy Unknown Verified 07/02/24 14:01 Active Medications: Current Medications Acetaminophen (Acetaminophen 325 Mg Tablet) 650 mg PO Q6H PRN PRN Reason: Pain, Mild (Pain Scale 1-3), fever or headache Calcium Carbonate (Calcium Carbonate 750 Mg Tab.Chew) 750 mg PO Q4H PRN PRN Reason: Heartburn Heparin Sodium (Porcine) (Heparin Sodium,Porcine 5,000 Unit/Ml Vial) 5,000 unit SUBCUT Q8H CHRISSY Lactated Ringer's (Lr) 1,000 mls @ 150 mls/hr IVCONT .Q6H40M CHRISSY Magnesium Hydroxide (Milk Of Magnesia 30 Ml Oral.Susp) 30 ml PO DAILY PRN PRN Reason: Constipation Melatonin (Melatonin 3 Mg Tablet) 6 mg PO BEDTIME PRN PRN Reason: Insomnia Sodium Chloride (0.9 % Sodium Chloride Flush 3 Ml Syringe) 3 ml IVFLUSH QSHIFT CHRISSY Home Medications ?Medication ?Instructions ?Recorded ?Confirmed ?Last Taken ?Type methadone 10 mg/mL oral 100 mg PO DAILY 06/03/22 06/03/22 Unknown History concentrate (Methadone Intensol) Physical Exam Vital Signs and Narrative: Vital Signs: Last Vital Signs Temp 98.9 F 07/02/24 13:57 Pulse 77 07/02/24 16:00 Resp 16 07/02/24 16:00 BP 122/74 07/02/24 16:00 Pulse Ox 100 07/02/24 16:00 O2 Del Method Room Air 07/02/24 16:00 BMI result Body Mass Index 34.2 General: AO X 3, no acute distress Resp: CTA bilateral, no accessory muscles used CVS: S1,S2,RRR GI: soft, non tender, non distended Neuro: motor grossly intact, alert Psych: appropriate affect, appropriate insight Results Labs 07/02/24 14:09 07/02/24 14:09 Labs: Laboratory Results - last 24 hr 07/02/24 07/02/24 14:09 18:10 MCV 84.5 MCH 31.0 MCHC 36.7 H RDW 11.9 Plt Count 352 MPV 10.3 Immature Gran % (Auto) 0.3 Neut % (Auto) 73.5 H Lymph % (Auto) 16.6 L [place] % (Auto) 9.1 Eos % (Auto) 0.1 Baso % (Auto) 0.4 Lymph # (Auto) 2.7 [place] # (Auto) 1.5 H Eos # (Auto) 0.0 Baso # (Auto) 0.1 Abs Immat Gran (auto) 0.05 H Absolute Neuts (auto) 11.8 H Absolute Nucleated RBC 0.000 Nucleated RBC % (auto) 0.0 Anion Gap 19 Estim Creat Clear Calc 56.8 Estimated GFR 38 Random Glucose 112 Calcium 10.2 Magnesium 2.5 Total Bilirubin 1.2 H Direct Bilirubin 0.3 AST 199 H ALT 60 H Alkaline Phosphatase 113 Total Creatine Kinase 7273 H Total Protein 8.8 H Albumin 5.0 Urine Color Yellow Urine Appearance Clear Urine pH 5.5 Ur Specific [place] 1.010 Urine Protein Negative Urine Glucose (UA) Negative Urine Ketones Negative Urine Blood Negative Urine Nitrite Negative Ur Leukocyte Esterase Negative Urine Opiates Screen POSITIVE H Ur Buprenorphine Scrn Not Detected Ur Oxycodone Screen Not Detected Urine Methadone Screen Positive H Urine Fentanyl Screen POSITIVE H Ur Barbiturates Screen Not Detected Ur Phencyclidine Scrn Not Detected Ur Amphetamines Screen Not Detected U Benzodiazepines Scrn Not Detected Urine Cocaine Screen POSITIVE H U Marijuana (THC) Screen Not Detected Assessment and Plan (1) Rhabdomyolysis: Status: Acute Plan 43M PMH polysubstance abuse, cocaine induced HI, HCV s/p treatment, hld, presented with weakness Acute kidney injury due to rhabdomyolysis Aggressive IV hydration, monitor CPK and Bmp Polysubstance dependence Addiction team eval History of cocaine induced HI Continue aspirin Hyperlipidemia Will hold statin in the setting of rhabdomyolysis HCV Reports treatment DVT prophylaxis with heparin subQ Full code Patient presented with acute kidney injury and rhabdomyolysis requiring aggressive IV hydration for likely more than 2 midnights Quality Stroke Does the patient have a stroke diagnosis?: No VTE Prior VTE?: No VTE Risk Level:: Medical - moderate - high VTE Device Contraindication: Treatment Not Indicated VTE Drug Contraindication: N/A - Med Ordered
--- NOTE | 2024-07-02 19:34 | PHA.MEDREC ---
Addendum entered by Georgina Salas RPh 07/02/24 19:47: Reviewed by [facility] Original Note: Pharmacy Consult ? Medication Reconciliation Pharmacy has completed the medication reconciliation. Spoke to patient to confirm med list. Patient kept falling asleep but was able to confirm his medications. patient states he takes Methadone 110 mg daily From [facility] in [place], last taken was 2 days ago. patient states he takes Atorvastatin 40 mg daily, however last fill date 12-20-23 for 30 days. left on med rec because patient states he takes it. He said he last took it a few days ago. Patient said he takes hydroxyzine , however he didn't know the dosing and there was no claim history. So, left of med rec.
--- NOTE | 2024-07-02 20:43 | PC.NURSE ---
pt being admitted and has a large backpack at bedside. pt has a known drug history and is a little off, security called to go thru the backpack before transfer to the floor. Casey coello is aware and Pat is aware of this need before transfer for safety.
--- NOTE | 2024-07-02 21:00 | PC.NURSE ---
medications found in pt backpack per security, rn made aware.
[2024-07-02 21:32] VITALS: BP 128/69; PULSE 68; RESP 18; TEMP 36.5; O2SAT 99
[2024-07-02] MEDS: Lactated Ringers 1,000 ML 150 ML IVCONT (21:51)
[2024-07-02] MEDS: Heparin Sodium,Porcine 5,000 UNIT/ML VIAL 5000 UNIT SUBCUT (21:52)
[2024-07-02] MEDS: 0.9 % Sodium Chloride Flush 3 ML SYRINGE IVFLUSH (21:56)
--- NOTE | 2024-07-02 22:12 | PC.NURSE ---
patient states takes 115 mg of methadone daily and goes to [facility] clinic in [place]. last dose taken on Saturday 06/30.
[2024-07-03] VITALS: BP 115/77; PULSE 67; RESP 16; TEMP 36.9; O2SAT 97
[2024-07-03] MEDS: Lactated Ringers 1,000 ML 150 ML IVCONT ×2 (04:25→10:53)
[2024-07-03 06:46] LABS: Hematocrit 33.2 % (42.0-52.0); Hemoglobin 11.4 g/dl (14.0-18.0); Mean Corpuscular HGB Conc 34.3 g/dl (31.0-36.0); Mean Corpuscular Hemoglobin 30.3 pg (27.0-33.0); Mean Corpuscular Volume 88.3 fL (80.0-98.0); Mean Platelet Volume 10.8 fL (9.4-12.4); Platelet Count 241 X10*3/uL (160-400); Red Blood Count 3.76 X10*6/uL (4.60-5.80); White Blood Count 7.6 X10*3/uL (4.8-10.8)
[2024-07-03 07:07] LABS: Anion Gap 9 (12-20); Blood Urea Nitrogen 23 mg/dL (9-16); Calcium 8.6 mg/dL (8.4-10.2); Carbon Dioxide 26 mmol/L (22-29); Chloride 108 mmol/L (96-108); Creatinine Clr Calc Pharmacy 118.5; Estimated Glomerular Filt Rate > 60; Glucose Fasting 84 mg/dL (60-99); Magnesium 2.2 mg/dL (1.6-2.6); Potassium 3.7 mmol/L (3.3-5.1); Sodium 139 mmol/L (135-145)
[2024-07-03] MEDS: Aspirin Enteric Coated 81 MG TABLET.DR PO (07:55)
[2024-07-03 07:57] VITALS: BP 105/62; PULSE 50; RESP 14; TEMP 36.3; O2SAT 97
--- NOTE | 2024-07-03 09:44 | HE.PHANOTE ---
Re: Methadone Pt receives from [facility], . Per BABAR Pruett, from facility, pt last received 115mg 06/30/24 @ 1019.
[2024-07-03] MEDS: methADONE HCl 20 MG/2 ML ORAL.CONC 115 MG PO (10:48)
--- NOTE | 2024-07-03 11:00 | PC.NURSE ---
Patient expressed SI thoughts to addiction team upon assessment. MD notified, Care team consult ordered/pending and sitter at bedside for safety.
--- NOTE | 2024-07-03 11:36 | MHC.RECOVRN ---
Met with pt in 357, along with LISSA Beverly, after consult placed to Addiction Medicine for polysubstance use. Pt had presented to the ED reporting feeling dehydrated, fatigued, nausea, sunburn, and substance use. Upon evaluation, pt admitted for MARSHA and rhabdomyolysis. Pt sitting in bed, awake, alert, easily engages in conversation. Pt reports he is currently on methadone, 115 mg x years through [facility]. Pt reports he had recently been in treatment ([facility]) and had only been using for a couple days. Pt reports he had been at [facility] but due to construction the facility needed to move the clients to another location. Also during that time, pt reports his children were placed in DCF custody. Pt reports he became suicidal and discharged from the program. Over the past couple of days pt reports using a lot of cocaine, INH, as well as heroin/fentanyl, 2 bundles, IV. Pt reports continued SI and would like evaluation by the CARE Team. Pt denies questions or concerns for t/w. Discussed with provider and RN.
--- NOTE | 2024-07-03 12:39 | ECG_ITS ---
Test Reason : cocaine use Blood Pressure : / mmHG Vent. Rate : 064 BPM Atrial Rate : 064 BPM P-R Int : 122 ms QRS Dur : 084 ms QT Int : 436 ms P-R-T Axes : 037 018 027 degrees QTc Int : 449 ms Normal sinus rhythm Nonspecific T wave abnormality Abnormal ECG When compared with ECG of 16-MAR-2023 22:00, Nonspecific T wave abnormality now evident in Inferior leads T wave amplitude has decreased in Anterolateral leads Referred By: Sherlyn Garces Electronically Signed By:VALERIE LEONARD
[2024-07-03] MEDS: hydrOXYzine HCL 25 MG TABLET PO (12:41)
--- NOTE | 2024-07-03 13:23 | P.PNIM_ITS ---
Subjective Subjective Date of Service: 07/03/24 Physical Exam 2 Vital Signs: Vital Signs: Last Vital Signs Temp 97.3 F 07/03/24 07:57 Pulse 50 07/03/24 07:57 Resp 14 07/03/24 07:57 BP 105/62 07/03/24 07:57 Pulse Ox 97 07/03/24 07:57 O2 Del Method Room Air 07/03/24 07:57 BMI result Body Mass Index 34.2 Objective Data Active Medications Acetaminophen (Acetaminophen 325 Mg Tablet) 650 mg PO Q6H PRN PRN Reason: Pain, Mild (Pain Scale 1-3), fever or headache Aspirin (Aspirin Enteric Coated 81 Mg Tablet.Dr) 81 mg PO DAILY [facility] Last Admin: 07/03/24 07:55 Dose: 81 mg Documented By: MARISOL Calcium Carbonate (Calcium Carbonate 750 Mg Tab.Chew) 750 mg PO Q4H PRN PRN Reason: Heartburn Heparin Sodium (Porcine) (Heparin Sodium,Porcine 5,000 Unit/Ml Vial) 5,000 unit SUBCUT Q8H [facility] Last Admin: 07/03/24 10:44 Dose: Not Given Documented By: MARISOL Non-Admin Reason: Patient Refused Hydroxyzine HCl (Hydroxyzine Hcl 25 Mg Tablet) 25 mg PO Q6H PRN PRN Reason: anxiety Last Admin: 07/03/24 12:41 Dose: 25 mg Documented By: MARISOL Lactated Ringer's (Lr) 1,000 mls @ 150 mls/hr IVCONT .Q6H40M [facility] Last Admin: 07/03/24 10:53 Dose: 150 mls/hr Documented By: MARISOL Magnesium Hydroxide (Milk Of Magnesia 30 Ml Oral.Susp) 30 ml PO DAILY PRN PRN Reason: Constipation Melatonin (Melatonin 3 Mg Tablet) 6 mg PO BEDTIME PRN PRN Reason: Insomnia Methadone HCl (Methadone Hcl 20 Mg/2 Ml Oral.Conc) 115 mg PO DAILY [facility] Last Admin: 07/03/24 10:48 Dose: 115 mg Documented By: MARISOL Co-signed By: JERSON Sodium Chloride (0.9 % Sodium Chloride Flush 3 Ml Syringe) 3 ml IVFLUSH QSHIFT [facility] Last Admin: 07/03/24 07:53 Dose: Not Given Documented By: MARISOL Non-Admin Reason: IV Running Labs 07/03/24 05:35 07/03/24 05:35 Labs: Laboratory Results - last 24 hr 07/02/24 07/02/24 07/03/24 14:09 18:10 05:35 MCV 84.5 88.3 MCH 31.0 30.3 MCHC 36.7 H 34.3 RDW 11.9 12.0 Plt Count 352 241 D MPV 10.3 10.8 Immature Gran % (Auto) 0.3 Neut % (Auto) 73.5 H Lymph % (Auto) 16.6 L [place] % (Auto) 9.1 Eos % (Auto) 0.1 Baso % (Auto) 0.4 Lymph # (Auto) 2.7 [place] # (Auto) 1.5 H Eos # (Auto) 0.0 Baso # (Auto) 0.1 Abs Immat Gran (auto) 0.05 H Absolute Neuts (auto) 11.8 H Absolute Nucleated RBC 0.000 0.000 Nucleated RBC % (auto) 0.0 0.0 Anion Gap 19 9 L Estim Creat Clear Calc 56.8 118.5 Estimated GFR 38 > 60 Random Glucose 112 Fasting Glucose 84 Calcium 10.2 8.6 D Magnesium 2.5 2.2 Total Bilirubin 1.2 H Direct Bilirubin 0.3 AST 199 H ALT 60 H Alkaline Phosphatase 113 Total Creatine Kinase 7273 H 2898 H Total Protein 8.8 H Albumin 5.0 Urine Color Yellow Urine Appearance Clear Urine pH 5.5 Ur Specific [place] 1.010 Urine Protein Negative Urine Glucose (UA) Negative Urine Ketones Negative Urine Blood Negative Urine Nitrite Negative Ur Leukocyte Esterase Negative Urine Opiates Screen POSITIVE H Ur Buprenorphine Scrn Not Detected Ur Oxycodone Screen Not Detected Urine Methadone Screen Positive H Urine Fentanyl Screen POSITIVE H Ur Barbiturates Screen Not Detected Ur Phencyclidine Scrn Not Detected Ur Amphetamines Screen Not Detected U Benzodiazepines Scrn Not Detected Urine Cocaine Screen POSITIVE H U Marijuana (THC) Screen Not Detected Quality Stroke Does the patient have a stroke diagnosis?: No VTE Prior VTE?: No VTE Risk Level:: Medical - moderate - high VTE Device Contraindication: Treatment Not Indicated VTE Drug Contraindication: N/A - Med Ordered
--- NOTE | 2024-07-03 13:50 | P.DS_ITS ---
DS: Providers Provider Date of Service: 07/03/24 Date of admission: 07/02/24 18:59 Date of discharge: 07/03/24 Primary care physician: None Physician Consults: 07/02/24 18:59 Addiction Medicine Routine Consulting Provider: Xiomara Le Reason for consultation: polysubstance 07/03/24 10:32 Consult to Care Team Routine Comment: Reason for consultation: suicidal ideation/medically cleared DS: Diagnosis Discharge Diagnosis (1) Rhabdomyolysis: Status: Acute DS: Summary Hospital Course Hospital Course: History of present illness: Date of Service: 07/02/24 Chief Complaint: weakness 43M PMH polysubstance abuse, cocaine induced AZ, HCV s/p treatment, hld, presented with weakness. Patient states that symptoms have been going on for about a day and half. He has been using cocaine and opiates. Has not been drinking much and has been outside in heat. Reports diffuse body aches and fatigue, denies any specific muscle weakness. Denies any period of loss of c onsciousness. Denies shortness of breath or chest pain. In ED noted to have acute kidney injury with a creatinine of 1.96 and rhabdomyolysis with a CPK above 7000. Hospital course: 43M PMH polysubstance abuse, cocaine induced AZ, HCV s/p treatment, hyperlipidemia presented to [facility] due to symptoms of weakness, and was diagnosed to have acute kidney injury likely due to rhabdomyolysis with elevated CPK of 7000, admitted to medical floor and treated with IV fluids, kidney function returned back to baseline, CPK improved to less than 3000, patient seen by Addiction Team, patient was noted to be tearful, sad depressed and verbalized that he is sick of his life and does not want to live that prompted the care team evaluation, and is being transferred to inpatient psychiatric unit for safety and containment, for mood stabilization, medication evaluation. Acute hyponatremia due to hypovolemia resolved with IV fluids. Acute reactive leukocytosis resolved. In regard to history of cocaine induced AZ recommend to continue aspirin, will hold statins due to elevated liver enzymes and CPK . Time Attestation Discharge Coordination Time (in mins): 34 Quality: Safe Use of Opioids Does Pt have an Active Cancer Diagnosis on the Problem List?: No Quality: Stroke Does the patient have a stroke diagnosis?: No Physical Exam Vital Signs: Vital Signs: Last Vital Signs Temp 97.3 F 07/03/24 07:57 Pulse 50 07/03/24 07:57 Resp 14 07/03/24 07:57 BP 105/62 07/03/24 07:57 Pulse Ox 97 07/03/24 07:57 O2 Del Method Room Air 07/03/24 07:57 BMI result Body Mass Index 34.2 Const: Other: General: AO X 3, no acute distress Neck no JVD Anicteric sclera Resp: CTA bilateral, no accessory muscles used CVS: S1,S2,RRR GI: soft, non tender, non distended Neuro: motor grossly intact, alert DS: Data Data Completed and Pending Labs on day of discharge: Laboratory Results - last 24 hr 07/02/24 07/02/24 07/03/24 14:09 18:10 05:35 WBC 16.1 H 7.6 RBC 4.77 3.76 L D Hgb 14.8 11.4 L D Hct 40.3 L 33.2 L MCV 84.5 88.3 MCH 31.0 30.3 MCHC 36.7 H 34.3 RDW 11.9 12.0 Plt Count 352 241 D MPV 10.3 10.8 Immature Gran % (Auto) 0.3 Neut % (Auto) 73.5 H Lymph % (Auto) 16.6 L [place] % (Auto) 9.1 Eos % (Auto) 0.1 Baso % (Auto) 0.4 Lymph # (Auto) 2.7 [place] # (Auto) 1.5 H Eos # (Auto) 0.0 Baso # (Auto) 0.1 Abs Immat Gran (auto) 0.05 H Absolute Neuts (auto) 11.8 H Absolute Nucleated RBC 0.000 0.000 Nucleated RBC % (auto) 0.0 0.0 Sodium 129 L 139 Potassium 4.3 3.7 Chloride 94 L 108 Carbon Dioxide 20 L 26 Anion Gap 19 9 L BUN 50 H 23 H Creatinine 1.96 H 0.94 Estim Creat Clear Calc 56.8 118.5 Estimated GFR 38 > 60 Random Glucose 112 Fasting Glucose 84 Calcium 10.2 8.6 D Magnesium 2.5 2.2 Total Bilirubin 1.2 H Direct Bilirubin 0.3 AST 199 H ALT 60 H Alkaline Phosphatase 113 Total Creatine Kinase 7273 H 2898 H Total Protein 8.8 H Albumin 5.0 Urine Color Yellow Urine Appearance Clear Urine pH 5.5 Ur Specific [place] 1.010 Urine Protein Negative Urine Glucose (UA) Negative Urine Ketones Negative Urine Blood Negative Urine Nitrite Negative Ur Leukocyte Esterase Negative Urine Opiates Screen POSITIVE H Ur Buprenorphine Scrn Not Detected Ur Oxycodone Screen Not Detected Urine Methadone Screen Positive H Urine Fentanyl Screen POSITIVE H Ur Barbiturates Screen Not Detected Ur Phencyclidine Scrn Not Detected Ur Amphetamines Screen Not Detected U Benzodiazepines Scrn Not Detected Urine Cocaine Screen POSITIVE H U Marijuana (THC) Screen Not Detected Discharge Plan Discharge Anticipated Discharge Date/Time: 07/03/24 13:46 Patient Disposition: Xfer Psychiatric Hosp Discharge Diagnosis: Acute kidney injury Rhabdomyolysis Referrals: Physician,None [Primary Care Provider] - 1 Week Discharge Medications: Continued methadone [Methadone Intensol] 10 mg/mL Concentrate 115 mg PO DAILY aspirin 81 mg tablet,delayed release (DR/EC) 81 mg PO DAILY cholecalciferol (vitamin D3) [Vitamin D3] 25 mcg (1,000 unit) Tablet 25 mcg PO DAILY Discontinued atorvastatin 40 mg tablet 40 mg PO DAILY Discharge Orders: Discharge Order (Routine); Ordered 07/03/24 Ordered By: Sherlyn Garces Diet: Advance to usual diet Activity on Discharge: As tolerated Stand Alone Forms: Patient Portal Discharge page Print Language: French Care Plan Goals: Acute kidney injury resolved CPK improved Opiate use disorder Health Concerns: Continue to hold statins due to elevated liver enzymes and CK Plan of Treatment: Outpatient follow-up with primary care physician.
--- NOTE | 2024-07-03 14:59 | MHC.CM.PN ---
DP: PT WILL DC TO I/P PSYCH DUE TO SI.
--- NOTE | 2024-07-03 15:17 | P.EN_ITS ---
Event Note Date of Service: 07/03/24 Event Note: Addiction consult placed for patient Seen by weight and balance control agent--see RN note for additional details Methadone dose verified and administered No follow up indicated at this time unless requested by patient Time Spent With Patient Time: Total time managing care of this patient today ____ minutes.
[2024-07-03 15:22] VITALS: BP 117/69; PULSE 97; RESP 16; TEMP 36.9; O2SAT 97
== END 2024-07-03 15:36 | DRG 558 ==
LOC: HO.ED 18:57 → HO.EDOVER 19:05 → HO.S3 19:50
PROVIDERS: Physician Assistant; Admitting Provider Internal Medicine; Emergency Provider Emergency Medicine; PCP Student in an Organized Health Care Education/Training Program; Visit Provider Hospitalist
DX: M62.82 Rhabdomyolysis (principal); F11.20 Opioid dependence, uncomplicated; Z59.02 Unsheltered homelessness; F19.20 Other psychoactive substance dependence, uncomplicated; N17.9 Acute kidney failure, unspecified; E87.1 Hypo-osmolality and hyponatremia; E86.1 Hypovolemia; T40.3X6A Underdosing of methadone, initial encounter; B19.20 Unspecified viral hepatitis C without hepatic coma; I25.2 Old myocardial infarction; F17.290 Nicotine dependence, other tobacco product, uncomplicated; E78.5 Hyperlipidemia, unspecified; Z71.6 Tobacco abuse counseling; Z79.82 Long term (current) use of aspirin; Z79.899 Other long term (current) drug therapy
CPT/HCPCS: 36415; 80048; 80076; 80307; 81003; 82550; 83735; 85025; 85027; 87635; 93005; 99285; J1644; J7120; S9485

== ENCOUNTER → 2024-07-02 18:59 | Outpatient (BNV) | payer MEDICAID, SELFPAY | PROVIDERS: Admitting Provider Internal Medicine; Emergency Provider Emergency Medicine; Visit Provider Internal Medicine | DX: M62.82 Rhabdomyolysis (principal) | CPT/HCPCS: 99223; 99239 ==

== ENCOUNTER 2024-07-03 15:52 | Inpatient (IN) | payer MEDICARE, MEDICAID, SELFPAY ==
[2024-07-03 15:33] VITALS: BP 132/78; PULSE 54; RESP 16; TEMP 36.8; O2SAT 100
[2024-07-03] MEDS: Nicotine Polacrilex 2 MG GUM 4 MG BUCCAL (16:13)
--- NOTE | 2024-07-03 16:20 | PC.ADMIT ---
Tavo is a 43-year-old male admitted from S3 to M3 on a CV for treatment of opioid use disorder, unspecified depressive disorder, unspecified anxiety disorder. Tox screen positive for opiates, methadone, fentanyl, cocaine. Pt reports last use was 07/03/24 in an attempt to end his life. Pt initially presented to the ED for treatment of rhabdomyolosis. Pt also has past medical hx of heart palpitations. While pt was on the medical floor, pt expressed SI with plan to overdose on IV drugs. Upon arrival to M3, pt was alert, oriented, pleasant and cooperative. Pt's mood was depressed with flat affect. Pt reported he's been homeless for 7 years and his children were taken away by DCF last week which triggered his feelings of hopelessness. Pt denies SI/HI/AH/VH currently and feels safe on the unit. Pt does not have any outside providers in the community. Per crisis report, pt has hx of incarceration regularly over the past 22 years, he has been arrested for assault and battery, strangulation and asphyxiation, most recent alf time in 2020. Pt appears goal-oriented and wants to work towards staying sober and getting his own apartment. Pt placed on 15 minute safety checks.
--- NOTE | 2024-07-03 16:47 | PC.NURSE ---
pt refused flu vaccine at this time
[2024-07-03 16:49] VITALS: BMI 34.5
[2024-07-03 20:00] VITALS: BP 131/77; PULSE 66; RESP 14; TEMP 36.5; O2SAT 98
[2024-07-04 07:40] VITALS: BP 111/66; PULSE 51; RESP 14; TEMP 36.8; O2SAT 100
--- NOTE | 2024-07-04 08:06 | HO.PSYADMNOT ---
HPI Date of Service: 07/04/24 Chief Complaint: SI Sources of Information: patient interviewed and chart reviewed HPI Subjective Notes: Conditional Voluntary Healthcare Proxy: No Guardianship: No Medical Problems Affecting Mental Status: No Narrative: Patient discussed nursing. Medical admission for rhabdo and dehydration. Labs reviewed. Prioir to this was anxious, depressed and suicidal. Was clear has not had a suicide attempt recently. Reports he was doing regarding sobriety and mood until 3 of his 6 children taken to DCF custody last week. That was no psychosis. No aggression. Sleep appetite disturbed. Has been unhoused, last at a [facility] around 3-4 weeks ago. Supports are his father and his children's mother- x years but still friends. Reports he also has psychiatric services through [facility], but not attended last month because he had been doing well off the does not engage in services medications feels well reports hydroxyzine, clonidine are helpful. Open the gabapentin anxiety. Clear he did not want Seroquel trazodone on a regular basis also discussed adjusting to recent stressors along with sobriety from recent relapse, then reviewing need or not for scheduled medications for depression. This is also patient's preference Past Psychiatric History: reports diagnosis major depression in the past. Last inpatient episode approximately 1 year ago he had suicidal. Denies any history suicide attempts. No psychosis. No allen. Substance use disorder. Longest period of sobriety 16 months in approximately 2012. Medical Evaluation Reviewed: Yes [facility] Medical History Heart palpitations IVDU (intravenous drug user) Social History: Unhoused. Last at [facility] 3-4 weeks ago. Has 6 children in total, 3 recently taken into DCF custody. 9th grade education. 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 No legal issues since 2020. Supports are his father and his children's mother- x years but still friends. Substance History: polysubstance use disorder. Opiates and cocaine. Methadone maintenance through [facility] [address] daily dose of 115 mg same confirmed Diagnostics Vital Signs (24Hr): Vital Signs - 24 hr 07/03/24 15:33 07/03/24 20:00 Temperature 98.2 F 97.7 F Pulse Rate 54 66 Respiratory Rate 16 14 Blood Pressure 132/78 131/77 Pulse Oximetry 100 98 Oxygen Delivery Method Room Air Room Air BMI result Body Mass Index 34.5 Meds/Allergies Meds Home Medications ?Medication ?Instructions ?Recorded ?Confirmed ?Type methadone 10 mg/mL oral 115 mg PO DAILY 06/03/22 07/03/24 History concentrate (Methadone Intensol) aspirin 81 mg tablet,delayed 81 mg PO DAILY 07/02/24 07/03/24 History release cholecalciferol (vitamin D3) 25 50 mcg PO DAILY 07/02/24 07/03/24 History mcg (1,000 unit) tablet (Vitamin D3) atorvastatin 40 mg tablet 40 mg PO DAILY 07/03/24 07/03/24 History hydroxyzine HCl 25 mg tablet 25 mg PO BID PRN Anxiety 07/03/24 07/03/24 History ibuprofen 600 mg tablet 600 mg PO Q6H PRN Pain (Scale 07/03/24 07/03/24 History Score 4-6) melatonin 5 mg tablet 5 mg PO BEDTIME PRN Insomnia 07/03/24 07/03/24 History trazodone 50 mg tablet 50 mg PO BEDTIME PRN Insomnia 07/03/24 07/03/24 History Allergies Allergies Allergy/AdvReac Type Severity Reaction Status Date / Time amoxicillin Allergy Anaphylaxis Verified 07/02/24 14:01 Penicillins Allergy Unknown Verified 07/02/24 14:01 Mental Status Exam Mental Status Exam Narrative: pleasant. Engaged. Casually dressed. Organized. Is depressed and anxious. Endorses suicidal thoughts. No plans or intent. No HI. No agitation or psychosis. Insight and judgment fair Assessment & Plan Assessment & Plan (1) Major depression: Status: Acute Code(s): F32.9 - Major depressive disorder, single episode, unspecified (2) Polysubstance (including opioids) dependence, daily use: Status: Acute Code(s): F11.20 - Opioid dependence, uncomplicated; F19.20 - Other psychoactive substance dependence, uncomplicated Plan patient presents with issues of depression polysubstance use disorder, recently relapsed text psychosocial stressors. Also on housed. Also recently not engaged with health services. Has maintained maintenance. Potential danger to self an inpatient appropriate. Will continue methadone maintenance 115 mg. also clonidine, hydroxyzine as needed and gabapentin low dose scheduled. Will review scheduled medication for depression and anxiety, as patient adjusts to inpatient completed any withdrawals Patient educated on: diagnosis, medication risk/benefits and substance abuse Reason for continued inpatient stay Substantial Risk for: harm to self Statement Statement: I have reviewed the history and physical and performed a pertinent examination on my patient. No changes have occurred unless specified. If the History and Physical was not performed prior to admission, the Hospitalist's service will be consulted for completing the admission physical. Time Spent With Patient Time: Total time managing care of this patient today ____ minutes.
--- NOTE | 2024-07-04 08:32 | HE.PHANOTE ---
RE METHADONE: PT WAS ON OTHER UNIT...NOTE FROM PREVIOUS: 07/03 PHARMACY NOTE LAST DOSE 115 MG ON 06/30 OUTPATIENT AND REC'D 115 MG ON 07/03 AT THIS FACILITY
[2024-07-04] MEDS: methADONE HCl 20 MG/2 ML ORAL.CONC 115 MG PO (08:51)
[2024-07-04] MEDS: hydrOXYzine HCL 25 MG TABLET PO (09:56)
[2024-07-04] MEDS: Gabapentin 100 MG CAPSULE PO ×3 (11:21→20:02)
[2024-07-04 19:55] VITALS: BP 123/64; PULSE 60; RESP 18; TEMP 37.7; O2SAT 98
[2024-07-04] MEDS: Hydrocortisone 1 % Cream 28.35 GM TUBE 1 APPL TOPICAL (20:02)
[2024-07-04] MEDS: Nicotine Polacrilex 2 MG GUM 4 MG BUCCAL (20:22)
[2024-07-04] MEDS: Melatonin 3 MG TABLET 6 MG PO (20:43)
[2024-07-05 08:00] VITALS: BP 135/86; PULSE 56; RESP 18; TEMP 36.5; O2SAT 98
[2024-07-05] MEDS: methADONE HCl 20 MG/2 ML ORAL.CONC 115 MG PO (08:03)
--- NOTE | 2024-07-05 08:10 | P.PNPSI_ITS ---
Subjective Subjective Date of Service: 07/05/24 Reason For Visit: SI Subjective Notes: Conditional Voluntary Medical Problems Affecting Mental Status: No Interim History: overall no management issues. Reports low-dose gabapentin was helpful with slowing down thoughts and feeling slightly more calm. We will increase to 200 mg 3 times per day. No side effects. Sleep okay. Energy and appetite fair. No SI today. Medication Compliance: Yes Side effects from medications: No Attending Groups: Intermittent Review of Systems Acute medical concerns: No Review of Systems Review of Systems Yes all other systems are reviewed and are negative Mental Status Exam Mental Status Exam Narrative: pleasant. Engaged. Casually dressed. Organized. Is less depressed and anxious. Denies suicidal thoughts. No plans or intent. No HI. No agitation or psychosis. Insight and judgment fair Diagnostics Vital Signs (24Hr): Vital Signs - 24 hr 07/04/24 19:55 Temperature 99.8 F Pulse Rate 60 Respiratory Rate 18 Blood Pressure 123/64 Pulse Oximetry 98 Oxygen Delivery Method Room Air BMI result Body Mass Index 34.5 Medications Medications Current Medications Acetaminophen (Acetaminophen 325 Mg Tablet) 650 mg PO Q6H PRN PRN Reason: Headache/Pain Mild Scale (1-3) Al Hydroxide/Mg Hydroxide (Magnesium Hydrox/Alum Hydrox 30 Ml Oral.Susp) 30 ml PO Q6H PRN PRN Reason: Heartburn/Nausea Albuterol Sulfate (Albuterol Sulfate 90 Mcg 8 Gm Inhaler) 2 puff INHALE RQ4H PRN PRN Reason: Bronchospasm Gabapentin (Gabapentin 100 Mg Capsule) 100 mg PO TID [facility] Last Admin: 07/04/24 20:02 Dose: 100 mg Hydrocortisone (Hydrocortisone 1 % Cream 28.35 Gm Tube) 1 appl TOPICAL BID [facility]; Protocol Stop: 07/06/24 10:00 Last Admin: 07/04/24 20:02 Dose: 1 appl Hydroxyzine HCl (Hydroxyzine Hcl 25 Mg Tablet) 25 mg PO Q6H PRN PRN Reason: Anxiety Last Admin: 07/04/24 09:56 Dose: 25 mg Magnesium Hydroxide (Milk Of Magnesia 30 Ml Oral.Susp) 30 ml PO DAILY PRN PRN Reason: Constipation Melatonin (Melatonin 3 Mg Tablet) 6 mg PO BEDTIME [facility] Last Admin: 07/04/24 20:43 Dose: 6 mg Methadone HCl (Methadone Hcl 20 Mg/2 Ml Oral.Conc) 115 mg PO DAILY [facility] Last Admin: 07/05/24 08:03 Dose: 115 mg Nicotine Polacrilex (Nicotine Polacrilex 2 Mg Gum) 4 mg BUCCAL Q2H PRN PRN Reason: Nicotine Cravings Last Admin: 07/04/24 20:22 Dose: 2 mg Trazodone HCl (Trazodone Hcl 50 Mg Tablet) 50 mg PO BEDTIME MRX1 PRN PRN Reason: Insomnia Allergies Allergies Allergy/AdvReac Type Severity Reaction Status Date / Time amoxicillin Allergy Anaphylaxis Verified 07/02/24 14:01 Penicillins Allergy Unknown Verified 07/02/24 14:01 Assessment & Plan Assessment & Plan (1) Major depression: Status: Acute Code(s): F32.9 - Major depressive disorder, single episode, unspecified (2) Polysubstance (including opioids) dependence, daily use: Status: Acute Code(s): F11.20 - Opioid dependence, uncomplicated; F19.20 - Other psychoactive substance dependence, uncomplicated Plan patient presents with issues of depression polysubstance use disorder, recently relapsed text psychosocial stressors. Also on housed. Also recently not engaged with health services. Has maintained maintenance. Potential danger to self an inpatient appropriate. Will continue methadone maintenance 115 mg. also clonidine, hydroxyzine as needed and gabapentin low dose scheduled. Will review scheduled medication for depression and anxiety, as patient adjusts to inpatient completed any withdrawals 07/05/2024: Increase gabapentin to 200 mg 3 times per day Reason for continued inpatient stay Substantial Risk for: harm to self Time Spent With Patient Time: Total time managing care of this patient today ____ minutes.
[2024-07-05] MEDS: Gabapentin 100 MG CAPSULE PO (08:17)
[2024-07-05] MEDS: Nicotine Polacrilex 2 MG GUM 4 MG BUCCAL ×2 (09:28→18:19)
[2024-07-05] MEDS: Gabapentin 100 MG CAPSULE 200 MG PO ×2 (15:39→20:50)
[2024-07-05 19:45] VITALS: BP 133/86; PULSE 62; TEMP 36.1; O2SAT 100
[2024-07-05] MEDS: Hydrocortisone 1 % Cream 28.35 GM TUBE 1 APPL TOPICAL (20:50)
[2024-07-05] MEDS: Melatonin 3 MG TABLET 6 MG PO (20:50)
[2024-07-06 07:45] VITALS: BP 118/65; PULSE 54; RESP 14; TEMP 36.6; O2SAT 99
[2024-07-06] MEDS: methADONE HCl 20 MG/2 ML ORAL.CONC 115 MG PO (07:54)
[2024-07-06] MEDS: Gabapentin 100 MG CAPSULE 200 MG PO (08:43)
[2024-07-06] MEDS: Gabapentin 400 MG CAPSULE PO ×2 (14:28→20:40)
[2024-07-06] MEDS: Sertraline HCL 50 MG TABLET PO (14:28)
--- NOTE | 2024-07-06 15:55 | HO.PSYCHPN ---
Subjective Subjective Date of Service: 07/06/24 Reason For Visit: SI Interim History: feels gabapentin helpful for racing thoughts and anxiety. asking for increase, which is agreed to. discuss meds Hx, which includes lexapro, effexor, nortriptyline, wellbutrin. describes uncomfortable withdrawal from lexapro and effexor. nevertheless, due to strong anxiety complaint, MD recommends SSRI, pt agrees to zoloft 50 mg daily. per staff, flat, guarded. not attending groups. gabapentin good for anxiety. dep 5 anx 8. social. watching TV. c/o racing thoughts. slept 7 hours. Mental Status Exam Mental Status Exam Narrative: pleasant. Engaged. Casually dressed. Organized. Is less depressed and anxious. Denies suicidal thoughts. No plans or intent. No HI. No agitation or psychosis. Insight and judgment fair Diagnostics Vital Signs (24Hr): Vital Signs - 24 hr 07/05/24 19:45 07/06/24 07:45 Temperature 97.0 F 97.8 F Pulse Rate 62 54 Respiratory Rate 14 Blood Pressure 133/86 118/65 Pulse Oximetry 100 99 Oxygen Delivery Method Room Air Room Air BMI result Body Mass Index 34.5 Medications Medications Current Medications Acetaminophen (Acetaminophen 325 Mg Tablet) 650 mg PO Q6H PRN PRN Reason: Headache/Pain Mild Scale (1-3) Al Hydroxide/Mg Hydroxide (Magnesium Hydrox/Alum Hydrox 30 Ml Oral.Susp) 30 ml PO Q6H PRN PRN Reason: Heartburn/Nausea Albuterol Sulfate (Albuterol Sulfate 90 Mcg 8 Gm Inhaler) 2 puff INHALE RQ4H PRN PRN Reason: Bronchospasm Gabapentin (Gabapentin 400 Mg Capsule) 400 mg PO TID [facility] Last Admin: 07/06/24 14:28 Dose: 400 mg Hydroxyzine HCl (Hydroxyzine Hcl 25 Mg Tablet) 25 mg PO Q6H PRN PRN Reason: Anxiety Last Admin: 07/04/24 09:56 Dose: 25 mg Magnesium Hydroxide (Milk Of Magnesia 30 Ml Oral.Susp) 30 ml PO DAILY PRN PRN Reason: Constipation Melatonin (Melatonin 3 Mg Tablet) 6 mg PO BEDTIME [facility] Last Admin: 07/05/24 20:50 Dose: 6 mg Methadone HCl (Methadone Hcl 20 Mg/2 Ml Oral.Conc) 115 mg PO DAILY [facility] Last Admin: 07/06/24 07:54 Dose: 115 mg Nicotine Polacrilex (Nicotine Polacrilex 2 Mg Gum) 4 mg BUCCAL Q2H PRN PRN Reason: Nicotine Cravings Last Admin: 07/05/24 18:19 Dose: 2 mg Sertraline HCl (Sertraline Hcl 50 Mg Tablet) 50 mg PO DAILY [facility] Last Admin: 07/06/24 14:28 Dose: 50 mg Trazodone HCl (Trazodone Hcl 50 Mg Tablet) 50 mg PO BEDTIME MRX1 PRN PRN Reason: Insomnia Allergies Allergies Allergy/AdvReac Type Severity Reaction Status Date / Time amoxicillin Allergy Anaphylaxis Verified 07/02/24 14:01 Penicillins Allergy Unknown Verified 07/02/24 14:01 Assessment & Plan Assessment & Plan (1) Major depression: Status: Acute Code(s): F32.9 - Major depressive disorder, single episode, unspecified (2) Polysubstance (including opioids) dependence, daily use: Status: Acute Code(s): F11.20 - Opioid dependence, uncomplicated; F19.20 - Other psychoactive substance dependence, uncomplicated Plan patient presents with issues of depression polysubstance use disorder, recently relapsed text psychosocial stressors. Also on housed. Also recently not engaged with health services. Has maintained maintenance. Potential danger to self an inpatient appropriate. Will continue methadone maintenance 115 mg. also clonidine, hydroxyzine as needed and gabapentin low dose scheduled. Will review scheduled medication for depression and anxiety, as patient adjusts to inpatient completed any withdrawals 07/05/2024: Increase gabapentin to 200 mg 3 times per day 07/06: increase gabapentin to 400 TID. start zoloft 50 mg daily for depression and anxiety. refer to [facility]. Reason for continued inpatient stay Substantial Risk for: harm to self, inability to function and rapid decompensation Time Spent With Patient Time: Total time managing care of this patient today __25__ minutes.
[2024-07-06 19:15] VITALS: BP 111/67; PULSE 60; TEMP 36.9; O2SAT 96
[2024-07-06] MEDS: Melatonin 3 MG TABLET 6 MG PO (20:40)
[2024-07-07 08:00] VITALS: BP 110/77; PULSE 68; RESP 16; TEMP 36.4; O2SAT 98
[2024-07-07] MEDS: methADONE HCl 20 MG/2 ML ORAL.CONC 115 MG PO (08:09)
[2024-07-07] MEDS: Sertraline HCL 50 MG TABLET PO (08:54)
[2024-07-07] MEDS: Gabapentin 400 MG CAPSULE PO ×3 (08:54→20:21)
--- NOTE | 2024-07-07 16:12 | P.PNPSI_ITS ---
Subjective Subjective Date of Service: 07/07/24 Reason For Visit: SI Interim History: a little groggy. otherwise feeling OK. irritated with gassy and snoring roommate. per staff, taking meds. isolative. denies SI/HI/AVH. dep/anx 5. slept 7 hours. Mental Status Exam Mental Status Exam Narrative: pleasant. Engaged. Casually dressed. Organized. Is less depressed and anxious. Denies suicidal thoughts. No plans or intent. No HI. No agitation or psychosis. Insight and judgment fair Diagnostics Vital Signs (24Hr): Vital Signs - 24 hr 07/06/24 19:15 07/07/24 08:00 Temperature 98.4 F 97.6 F Pulse Rate 60 68 Respiratory Rate 16 Blood Pressure 111/67 110/77 Pulse Oximetry 96 98 Oxygen Delivery Method Room Air Room Air BMI result Body Mass Index 34.5 Medications Medications Current Medications Acetaminophen (Acetaminophen 325 Mg Tablet) 650 mg PO Q6H PRN PRN Reason: Headache/Pain Mild Scale (1-3) Al Hydroxide/Mg Hydroxide (Magnesium Hydrox/Alum Hydrox 30 Ml Oral.Susp) 30 ml PO Q6H PRN PRN Reason: Heartburn/Nausea Albuterol Sulfate (Albuterol Sulfate 90 Mcg 8 Gm Inhaler) 2 puff INHALE RQ4H PRN PRN Reason: Bronchospasm Gabapentin (Gabapentin 400 Mg Capsule) 400 mg PO TID [facility] Last Admin: 07/07/24 15:45 Dose: 400 mg Hydroxyzine HCl (Hydroxyzine Hcl 25 Mg Tablet) 25 mg PO Q6H PRN PRN Reason: Anxiety Last Admin: 07/04/24 09:56 Dose: 25 mg Magnesium Hydroxide (Milk Of Magnesia 30 Ml Oral.Susp) 30 ml PO DAILY PRN PRN Reason: Constipation Melatonin (Melatonin 3 Mg Tablet) 6 mg PO BEDTIME [facility] Last Admin: 07/06/24 20:40 Dose: 6 mg Methadone HCl (Methadone Hcl 20 Mg/2 Ml Oral.Conc) 115 mg PO DAILY [facility] Last Admin: 07/07/24 08:09 Dose: 115 mg Nicotine Polacrilex (Nicotine Polacrilex 2 Mg Gum) 4 mg BUCCAL Q2H PRN PRN Reason: Nicotine Cravings Last Admin: 07/05/24 18:19 Dose: 2 mg Sertraline HCl (Sertraline Hcl 50 Mg Tablet) 50 mg PO DAILY [facility] Last Admin: 07/07/24 08:54 Dose: 50 mg Trazodone HCl (Trazodone Hcl 50 Mg Tablet) 50 mg PO BEDTIME MRX1 PRN PRN Reason: Insomnia Allergies Allergies Allergy/AdvReac Type Severity Reaction Status Date / Time amoxicillin Allergy Anaphylaxis Verified 07/02/24 14:01 Penicillins Allergy Unknown Verified 07/02/24 14:01 Assessment & Plan Assessment & Plan (1) Major depression: Status: Acute Code(s): F32.9 - Major depressive disorder, single episode, unspecified (2) Polysubstance (including opioids) dependence, daily use: Status: Acute Code(s): F11.20 - Opioid dependence, uncomplicated; F19.20 - Other psychoactive substance dependence, uncomplicated Plan patient presents with issues of depression polysubstance use disorder, recently relapsed text psychosocial stressors. Also on housed. Also recently not engaged with health services. Has maintained maintenance. Potential danger to self an inpatient appropriate. Will continue methadone maintenance 115 mg. also clonidine, hydroxyzine as needed and gabapentin low dose scheduled. Will review scheduled medication for depression and anxiety, as patient adjusts to inpatient completed any withdrawals 07/05/2024: Increase gabapentin to 200 mg 3 times per day 07/06: increase gabapentin to 400 TID. start zoloft 50 mg daily for depression and anxiety. refer to [facility]. 07/07: mood remains improved. a little groggy today, reassured it is likely gabapentin and twill likely resolve in several days. Reason for continued inpatient stay Substantial Risk for: harm to self, inability to function and rapid decompensation Time Spent With Patient Time: Total time managing care of this patient today __25__ minutes.
[2024-07-07] MEDS: Nicotine Polacrilex 2 MG GUM 4 MG BUCCAL (18:16)
[2024-07-07 20:00] VITALS: BP 131/85; PULSE 70; RESP 16; TEMP 36.6; O2SAT 97
[2024-07-07] MEDS: Melatonin 3 MG TABLET 6 MG PO (20:21)
[2024-07-07] MEDS: hydrOXYzine HCL 25 MG TABLET PO (23:54)
[2024-07-08 07:53] VITALS: BP 110/62; PULSE 63; RESP 16; TEMP 36.5; O2SAT 98
[2024-07-08] MEDS: methADONE HCl 20 MG/2 ML ORAL.CONC 115 MG PO (08:10)
[2024-07-08] MEDS: Gabapentin 400 MG CAPSULE PO ×3 (08:12→20:13)
[2024-07-08] MEDS: Sertraline HCL 50 MG TABLET PO (08:13)
--- NOTE | 2024-07-08 12:12 | P.PNPSI_ITS ---
Subjective Subjective Date of Service: 07/08/24 Reason For Visit: SI Subjective Notes: Conditional Voluntary Interim History: pt is depressed anxious asking for gabapentin inc Medication Compliance: Yes Mental Status Exam Mental Status Exam Narrative: . Casually dressed. Organized. Is less depressed Denies active suicidal thoughts. No plans or intent. No HI. c/o anxiety asking for inc gabapentin. Insight and judgment fair Diagnostics Vital Signs (24Hr): Vital Signs - 24 hr 07/07/24 20:00 07/08/24 07:53 Temperature 97.9 F 97.7 F Pulse Rate 70 63 Respiratory Rate 16 16 Blood Pressure 131/85 110/62 Pulse Oximetry 97 98 Oxygen Delivery Method Room Air Room Air BMI result Body Mass Index 34.5 Medications Medications Current Medications Acetaminophen (Acetaminophen 325 Mg Tablet) 650 mg PO Q6H PRN PRN Reason: Headache/Pain Mild Scale (1-3) Al Hydroxide/Mg Hydroxide (Magnesium Hydrox/Alum Hydrox 30 Ml Oral.Susp) 30 ml PO Q6H PRN PRN Reason: Heartburn/Nausea Albuterol Sulfate (Albuterol Sulfate 90 Mcg 8 Gm Inhaler) 2 puff INHALE RQ4H PRN PRN Reason: Bronchospasm Gabapentin (Gabapentin 400 Mg Capsule) 400 mg PO TID [facility] Last Admin: 07/08/24 08:12 Dose: 400 mg Hydroxyzine HCl (Hydroxyzine Hcl 25 Mg Tablet) 25 mg PO Q6H PRN PRN Reason: Anxiety Last Admin: 07/07/24 23:54 Dose: 25 mg Magnesium Hydroxide (Milk Of Magnesia 30 Ml Oral.Susp) 30 ml PO DAILY PRN PRN Reason: Constipation Melatonin (Melatonin 3 Mg Tablet) 6 mg PO BEDTIME [facility] Last Admin: 07/07/24 20:21 Dose: 6 mg Methadone HCl (Methadone Hcl 20 Mg/2 Ml Oral.Conc) 115 mg PO DAILY [facility] Last Admin: 07/08/24 08:10 Dose: 115 mg Nicotine Polacrilex (Nicotine Polacrilex 2 Mg Gum) 4 mg BUCCAL Q2H PRN PRN Reason: Nicotine Cravings Last Admin: 07/07/24 18:16 Dose: 2 mg Sertraline HCl (Sertraline Hcl 50 Mg Tablet) 50 mg PO DAILY [facility] Last Admin: 07/08/24 08:13 Dose: 50 mg Trazodone HCl (Trazodone Hcl 50 Mg Tablet) 50 mg PO BEDTIME MRX1 PRN PRN Reason: Insomnia Allergies Allergies Allergy/AdvReac Type Severity Reaction Status Date / Time amoxicillin Allergy Anaphylaxis Verified 07/02/24 14:01 Penicillins Allergy Unknown Verified 07/02/24 14:01 Assessment & Plan Assessment & Plan (1) Major depression: Status: Acute Code(s): F32.9 - Major depressive disorder, single episode, unspecified (2) Polysubstance (including opioids) dependence, daily use: Status: Acute Code(s): F11.20 - Opioid dependence, uncomplicated; F19.20 - Other psychoactive substance dependence, uncomplicated Plan patient presents with issues of depression polysubstance use disorder, recently relapsed text psychosocial stressors. Also on housed. Also recently not engaged with health services. Has maintained maintenance. Potential danger to self an inpatient appropriate. Will continue methadone maintenance 115 mg. also clonidine, hydroxyzine as needed and gabapentin low dose scheduled. Will review scheduled medication for depression and anxiety, as patient adjusts to inpatient completed any withdrawals 07/05/2024: Increase gabapentin to 200 mg 3 times per day 07/06: increase gabapentin to 400 TID. start zoloft 50 mg daily for depression and anxiety. refer to [facility]. 07/07: mood remains improved. a little groggy today, reassured it is likely gabapentin and twill likely resolve in several days. 07/08/24 cont d/c planning referral monitor response to med trial Reason for continued inpatient stay Substantial Risk for: inability to function and rapid decompensation Time Spent With Patient Time: Total time managing care of this patient today ____ minutes.
[2024-07-08] MEDS: Nicotine Polacrilex 2 MG GUM 4 MG BUCCAL ×2 (18:29→20:13)
[2024-07-08 20:00] VITALS: BP 126/83; PULSE 73; RESP 16; TEMP 36.4; O2SAT 97
[2024-07-08] MEDS: Melatonin 3 MG TABLET 6 MG PO (20:13)
[2024-07-09 08:00] VITALS: BP 101/59; PULSE 60; RESP 16; TEMP 36.4; O2SAT 99
[2024-07-09] MEDS: methADONE HCl 20 MG/2 ML ORAL.CONC 115 MG PO (08:05)
[2024-07-09] MEDS: Gabapentin 400 MG CAPSULE PO (08:40)
[2024-07-09] MEDS: Sertraline HCL 50 MG TABLET PO (08:40)
[2024-07-09] MEDS: Nicotine Polacrilex 2 MG GUM 4 MG BUCCAL ×3 (13:17→20:22)
--- NOTE | 2024-07-09 14:57 | HO.PSYCHPN ---
Subjective Subjective Date of Service: 07/09/24 Reason For Visit: SI Interim History: asking for lizzeth increase. no other complaints or requests. per staff, dep 4 anx 5. slept 7 hours. Mental Status Exam Mental Status Exam Narrative: pleasant. Engaged. Casually dressed. Organized. Is less depressed and anxious. Denies suicidal thoughts. No plans or intent. No HI. No agitation or psychosis. Insight and judgment fair Diagnostics Vital Signs (24Hr): Vital Signs - 24 hr 07/08/24 20:00 07/09/24 08:00 Temperature 97.6 F 97.5 F Pulse Rate 73 60 Respiratory Rate 16 16 Blood Pressure 126/83 101/59 L Pulse Oximetry 97 99 Oxygen Delivery Method Room Air Room Air BMI result Body Mass Index 34.5 Medications Medications Current Medications Acetaminophen (Acetaminophen 325 Mg Tablet) 650 mg PO Q6H PRN PRN Reason: Headache/Pain Mild Scale (1-3) Al Hydroxide/Mg Hydroxide (Magnesium Hydrox/Alum Hydrox 30 Ml Oral.Susp) 30 ml PO Q6H PRN PRN Reason: Heartburn/Nausea Albuterol Sulfate (Albuterol Sulfate 90 Mcg 8 Gm Inhaler) 2 puff INHALE RQ4H PRN PRN Reason: Bronchospasm Gabapentin (Gabapentin 300 Mg Capsule) 600 mg PO TID [facility] Hydroxyzine HCl (Hydroxyzine Hcl 25 Mg Tablet) 25 mg PO Q6H PRN PRN Reason: Anxiety Last Admin: 07/07/24 23:54 Dose: 25 mg Magnesium Hydroxide (Milk Of Magnesia 30 Ml Oral.Susp) 30 ml PO DAILY PRN PRN Reason: Constipation Melatonin (Melatonin 3 Mg Tablet) 6 mg PO BEDTIME [facility] Last Admin: 07/08/24 20:13 Dose: 6 mg Methadone HCl (Methadone Hcl 20 Mg/2 Ml Oral.Conc) 115 mg PO DAILY [facility] Last Admin: 07/09/24 08:05 Dose: 115 mg Nicotine Polacrilex (Nicotine Polacrilex 2 Mg Gum) 4 mg BUCCAL Q2H PRN PRN Reason: Nicotine Cravings Last Admin: 07/09/24 13:17 Dose: 2 mg Sertraline HCl (Sertraline Hcl 50 Mg Tablet) 50 mg PO DAILY [facility] Last Admin: 07/09/24 08:40 Dose: 50 mg Trazodone HCl (Trazodone Hcl 50 Mg Tablet) 50 mg PO BEDTIME MRX1 PRN PRN Reason: Insomnia Allergies Allergies Allergy/AdvReac Type Severity Reaction Status Date / Time amoxicillin Allergy Anaphylaxis Verified 07/02/24 14:01 Penicillins Allergy Unknown Verified 07/02/24 14:01 Assessment & Plan Assessment & Plan (1) Major depression: Status: Acute Code(s): F32.9 - Major depressive disorder, single episode, unspecified (2) Polysubstance (including opioids) dependence, daily use: Status: Acute Code(s): F11.20 - Opioid dependence, uncomplicated; F19.20 - Other psychoactive substance dependence, uncomplicated Plan patient presents with issues of depression polysubstance use disorder, recently relapsed text psychosocial stressors. Also on housed. Also recently not engaged with health services. Has maintained maintenance. Potential danger to self an inpatient appropriate. Will continue methadone maintenance 115 mg. also clonidine, hydroxyzine as needed and gabapentin low dose scheduled. Will review scheduled medication for depression and anxiety, as patient adjusts to inpatient completed any withdrawals 07/05/2024: Increase gabapentin to 200 mg 3 times per day 07/06: increase gabapentin to 400 TID. start zoloft 50 mg daily for depression and anxiety. refer to [facility]. 07/07: mood remains improved. a little groggy today, reassured it is likely gabapentin and twill likely resolve in several days. 07/09: asking for lizzeth increase, not groggy. increase lizzeth to 600 TID. otherwise awaiting word from [facility]. no other complaints or requests. continue current mgmt otherwise. Reason for continued inpatient stay Substantial Risk for: inability to function and rapid decompensation Time Spent With Patient Time: Total time managing care of this patient today __25__ minutes.
[2024-07-09] MEDS: Gabapentin 300 MG CAPSULE 600 MG PO ×2 (15:24→20:23)
[2024-07-09 20:00] VITALS: BP 121/75; PULSE 65; RESP 16; TEMP 36.4; O2SAT 98
[2024-07-09] MEDS: Melatonin 3 MG TABLET 6 MG PO (20:22)
[2024-07-10 07:36] VITALS: BP 105/56; PULSE 60; RESP 14; TEMP 36.4; O2SAT 96
[2024-07-10] MEDS: methADONE HCl 20 MG/2 ML ORAL.CONC 115 MG PO (08:06)
[2024-07-10] MEDS: Sertraline HCL 50 MG TABLET PO (08:08)
[2024-07-10] MEDS: Gabapentin 300 MG CAPSULE 600 MG PO ×3 (08:08→20:26)
[2024-07-10] MEDS: Nicotine Polacrilex 2 MG GUM 4 MG BUCCAL (11:25)
[2024-07-10] MEDS: Nicotine Polacrilex 2 MG GUM BUCCAL ×2 (13:33→18:14)
--- NOTE | 2024-07-10 14:21 | P.PNPSI_ITS ---
Subjective Subjective Date of Service: 07/10/24 Reason For Visit: SI Interim History: cooperative. sarcastic, negativistic, rude, dismissive of efforts being made on his behalf. feels meds are adequate, no requests for change in mgmt. accusing and SW of trying to get rid of him in the easiest way possible by sending him to [facility]. had intake with them, accepted for saturday. per staff, taking meds, attended 1 group yesterday. i need a program. social. denied psych Sx eves. slept about 7 hours. Mental Status Exam Mental Status Exam Narrative: Casually dressed. Organized. Is less depressed and anxious. Denies suicidal thoughts. No plans or intent. No HI. No agitation or psychosis. Insight and judgment fair Diagnostics Vital Signs (24Hr): Vital Signs - 24 hr 07/09/24 20:00 07/10/24 07:36 Temperature 97.5 F 97.5 F Pulse Rate 65 60 Respiratory Rate 16 14 Blood Pressure 121/75 105/56 L Pulse Oximetry 98 96 Oxygen Delivery Method Room Air Room Air BMI result Body Mass Index 34.5 Medications Medications Current Medications Acetaminophen (Acetaminophen 325 Mg Tablet) 650 mg PO Q6H PRN PRN Reason: Headache/Pain Mild Scale (1-3) Al Hydroxide/Mg Hydroxide (Magnesium Hydrox/Alum Hydrox 30 Ml Oral.Susp) 30 ml PO Q6H PRN PRN Reason: Heartburn/Nausea Albuterol Sulfate (Albuterol Sulfate 90 Mcg 8 Gm Inhaler) 2 puff INHALE RQ4H PRN PRN Reason: Bronchospasm Gabapentin (Gabapentin 300 Mg Capsule) 600 mg PO TID [facility] Last Admin: 07/10/24 08:08 Dose: 600 mg Hydroxyzine HCl (Hydroxyzine Hcl 25 Mg Tablet) 25 mg PO Q6H PRN PRN Reason: Anxiety Last Admin: 07/07/24 23:54 Dose: 25 mg Magnesium Hydroxide (Milk Of Magnesia 30 Ml Oral.Susp) 30 ml PO DAILY PRN PRN Reason: Constipation Melatonin (Melatonin 3 Mg Tablet) 6 mg PO BEDTIME [facility] Last Admin: 07/09/24 20:22 Dose: 6 mg Methadone HCl (Methadone Hcl 20 Mg/2 Ml Oral.Conc) 115 mg PO DAILY [facility] Last Admin: 07/10/24 08:06 Dose: 115 mg Nicotine Polacrilex (Nicotine Polacrilex 2 Mg Gum) 2 mg BUCCAL Q2H PRN PRN Reason: Nicotine Cravings Last Admin: 07/10/24 13:33 Dose: 2 mg Sertraline HCl (Sertraline Hcl 50 Mg Tablet) 50 mg PO DAILY [facility] Last Admin: 07/10/24 08:08 Dose: 50 mg Trazodone HCl (Trazodone Hcl 50 Mg Tablet) 50 mg PO BEDTIME MRX1 PRN PRN Reason: Insomnia Allergies Allergies Allergy/AdvReac Type Severity Reaction Status Date / Time amoxicillin Allergy Anaphylaxis Verified 07/02/24 14:01 Penicillins Allergy Unknown Verified 07/02/24 14:01 Assessment & Plan Assessment & Plan (1) Major depression: Status: Acute Code(s): F32.9 - Major depressive disorder, single episode, unspecified (2) Polysubstance (including opioids) dependence, daily use: Status: Acute Code(s): F11.20 - Opioid dependence, uncomplicated; F19.20 - Other psychoactive substance dependence, uncomplicated Plan patient presents with issues of depression polysubstance use disorder, recently relapsed text psychosocial stressors. Also on housed. Also recently not engaged with health services. Has maintained maintenance. Potential danger to self an inpatient appropriate. Will continue methadone maintenance 115 mg. also clonidine, hydroxyzine as needed and gabapentin low dose scheduled. Will review scheduled medication for depression and anxiety, as patient adjusts to inpatient completed any withdrawals 07/05/2024: Increase gabapentin to 200 mg 3 times per day 07/06: increase gabapentin to 400 TID. start zoloft 50 mg daily for depression and anxiety. refer to [facility]. 07/07: mood remains improved. a little groggy today, reassured it is likely flash apentin and twill likely resolve in several days. 07/08: cont d/c planning referral monitor response to med trial 07/09: asking for lizzeth increase, not groggy. increase lizzeth to 600 TID. otherwise awaiting word from [facility]. no other complaints or requests. continue current mgmt otherwise. 07/10: accepted to [facility] for saturday. stable and safe. discharge saturday. Reason for continued inpatient stay Substantial Risk for: rapid decompensation Time Spent With Patient Time: Total time managing care of this patient today __35__ minutes.
[2024-07-10 19:50] VITALS: BP 118/74; PULSE 64; RESP 16; TEMP 36.3; O2SAT 97
[2024-07-10] MEDS: Melatonin 3 MG TABLET 6 MG PO (20:26)
[2024-07-11 07:39] VITALS: BP 108/64; PULSE 57; RESP 16; TEMP 36.4; O2SAT 97
[2024-07-11] MEDS: methADONE HCl 20 MG/2 ML ORAL.CONC 115 MG PO (08:04)
[2024-07-11] MEDS: Gabapentin 300 MG CAPSULE 600 MG PO ×3 (08:07→20:14)
[2024-07-11] MEDS: Sertraline HCL 50 MG TABLET PO (08:07)
[2024-07-11] MEDS: Nicotine Polacrilex 2 MG GUM BUCCAL ×2 (10:07→15:06)
--- NOTE | 2024-07-11 13:30 | HO.PSYCHPN ---
Subjective Subjective Date of Service: 07/11/24 Reason For Visit: SI Subjective Notes: Conditional Voluntary Healthcare Proxy: No Guardianship: No Medical Problems Affecting Mental Status: No Interim History: 43 yo WM co depression and anxiety, feels sertraline has keyed him up = trouble sleeping and lotsof body movements- felt sob with start of sertraline, but now feels keyed up - unhappy about dc [facility], but says it is better than being homeless also some hx of adhd but can't take clonidine due to low bp pt reports Medication Compliance: Yes Side effects from medications: Yes (? worsening of chorea or dyskinetic movements) Attending Groups: Intermittent Review of Systems Acute medical concerns: No Medical Review of Systems: changed Review of Systems: as noted above Mental Status Exam Mental Status Exam Patient Appearance: Well Grooomed and Appropriate Patient Orientation: Person, Place and Situation Level of Consciousness: Awake Patient Behavior: Restless, Anxious and Good Eye Contact Mood Description: Apathetic Affect Description: Blunted Patient Cognition Impaired: No Ability to Follow Directions: Fair Speech Pattern: Clear Hallucinations: None Delusions: Not Present Thought Process: Intact and Goal Oriented Depressive Symptoms: Muscle Tension Abnormal Motor Activity Signs and Symptoms: Tic and Chorea Judgement: Fair Diagnostics Vital Signs (24Hr): Vital Signs - 24 hr 07/10/24 19:50 07/11/24 07:39 Temperature 97.3 F 97.5 F Pulse Rate 64 57 Respiratory Rate 16 16 Blood Pressure 118/74 108/64 Pulse Oximetry 97 97 Oxygen Delivery Method Room Air Room Air BMI result Body Mass Index 34.5 Medications Medications Current Medications Acetaminophen (Acetaminophen 325 Mg Tablet) 650 mg PO Q6H PRN PRN Reason: Headache/Pain Mild Scale (1-3) Al Hydroxide/Mg Hydroxide (Magnesium Hydrox/Alum Hydrox 30 Ml Oral.Susp) 30 ml PO Q6H PRN PRN Reason: Heartburn/Nausea Albuterol Sulfate (Albuterol Sulfate 90 Mcg 8 Gm Inhaler) 2 puff INHALE RQ4H PRN PRN Reason: Bronchospasm Gabapentin (Gabapentin 300 Mg Capsule) 600 mg PO TID CHRISSY Last Admin: 07/11/24 08:07 Dose: 600 mg Hydroxyzine HCl (Hydroxyzine Hcl 25 Mg Tablet) 25 mg PO Q6H PRN PRN Reason: Anxiety Last Admin: 07/07/24 23:54 Dose: 25 mg Magnesium Hydroxide (Milk Of Magnesia 30 Ml Oral.Susp) 30 ml PO DAILY PRN PRN Reason: Constipation Melatonin (Melatonin 3 Mg Tablet) 6 mg PO BEDTIME [facility] Last Admin: 07/10/24 20:26 Dose: 6 mg Methadone HCl (Methadone Hcl 20 Mg/2 Ml Oral.Conc) 115 mg PO DAILY [facility] Last Admin: 07/11/24 08:04 Dose: 115 mg Nicotine Polacrilex (Nicotine Polacrilex 2 Mg Gum) 2 mg BUCCAL Q2H PRN PRN Reason: Nicotine Cravings Last Admin: 07/11/24 10:07 Dose: 2 mg Sertraline HCl (Sertraline Hcl 50 Mg Tablet) 50 mg PO DAILY [facility] Last Admin: 07/11/24 08:07 Dose: 50 mg Trazodone HCl (Trazodone Hcl 50 Mg Tablet) 50 mg PO BEDTIME MRX1 PRN PRN Reason: Insomnia Allergies Allergies Allergy/AdvReac Type Severity Reaction Status Date / Time amoxicillin Allergy Anaphylaxis Verified 07/02/24 14:01 Penicillins Allergy Unknown Verified 07/02/24 14:01 Assessment & Plan Assessment & Plan (1) Major depression: Status: Acute Code(s): F32.9 - Major depressive disorder, single episode, unspecified (2) Polysubstance (including opioids) dependence, daily use: Status: Acute Code(s): F11.20 - Opioid dependence, uncomplicated; F19.20 - Other psychoactive substance dependence, uncomplicated Plan patient presents with issues of depression polysubstance use disorder, recently relapsed text psychosocial stressors. Also on housed. Also recently not engaged with health services. Has maintained maintenance. Potential danger to self an inpatient appropriate. Will continue methadone maintenance 115 mg. also clonidine, hydroxyzine as needed and gabapentin low dose scheduled. Will review scheduled medication for depression and anxiety, as patient adjusts to inpatient completed any withdrawals 07/05/2024: Increase gabapentin to 200 mg 3 times per day 07/06: increase gabapentin to 400 TID. start zoloft 50 mg daily for depression and anxiety. refer to [facility]. 07/07: mood remains improved. a little groggy today, reassured it is likely gabapentin and twill likely resolve in several days. 07/08: cont d/c planning referral monitor response to med trial 07/09: asking for lizzeth increase, not groggy. increase lizzeth to 600 TID. otherwise awaiting word from rehabs. no other complaints or requests. continue current mgmt otherwise. 07/10: accepted to [facility] for saturday. stable and safe. discharge saturday. 07/11- dced sertraline started vraylar- consider guanfacine - otherwise CTP with dc to [place] Patient educated on: medication risk/benefits and medical condition (abnormal movement) Informed Consent: understands Reason for continued inpatient stay Substantial Risk for: rapid decompensation Time Spent With Patient Time: Total time managing care of this patient today ____ minutes.
[2024-07-11] MEDS: hydrOXYzine HCL 25 MG TABLET PO (16:30)
[2024-07-11] MEDS: Acetaminophen 325 MG TABLET 650 MG PO (18:55)
[2024-07-11 19:10] VITALS: BP 136/68; PULSE 64; RESP 16; TEMP 37.3; O2SAT 97
[2024-07-11] MEDS: Melatonin 3 MG TABLET 6 MG PO (20:14)
[2024-07-12] MEDS: Benzocaine 20 % Oral Gel 9 GM TUBE 1 APPL MUCOUS MEM ×2 (07:49→19:38)
[2024-07-12 08:00] VITALS: BP 123/76; PULSE 60; RESP 18; TEMP 36.3; O2SAT 99
[2024-07-12] MEDS: methADONE HCl 20 MG/2 ML ORAL.CONC 115 MG PO (08:02)
[2024-07-12] MEDS: Gabapentin 300 MG CAPSULE 600 MG PO ×3 (08:04→20:24)
[2024-07-12] MEDS: Cariprazine HCl 1.5 MG CAPSULE PO (08:05)
[2024-07-12] MEDS: Acetaminophen 325 MG TABLET 650 MG PO ×3 (08:26→22:41)
[2024-07-12] MEDS: hydrOXYzine HCL 25 MG TABLET PO (12:08)
--- NOTE | 2024-07-12 14:46 | P.PNPSI_ITS ---
Subjective Subjective Date of Service: 07/12/24 Reason For Visit: SI Subjective Notes: Conditional Voluntary Healthcare Proxy: No Guardianship: No Medical Problems Affecting Mental Status: No Interim History: 43 yo who complained of sertraline s/e and I changed to vraylar- banged head on wall as talking to nurse - pt says it was not sib more self stim and didn't hurt- did not bang hard- Understands why I changed his med based on his complaint and says he tolerated vraylar 1.5mg- today- Medication Compliance: Yes Side effects from medications: No Attending Groups: Intermittent Review of Systems Acute medical concerns: No Medical Review of Systems: changed (anal fissure- got protective barrier cream to area) Mental Status Exam Mental Status Exam Patient Appearance: Well Grooomed and Appropriate Patient Orientation: Person, Place, Time and Situation Level of Consciousness: Awake and Alert Patient Behavior: Cooperative and Good Eye Contact Mood Description: Anxious (about dc) Affect Description: Blunted Patient Cognition Impaired: No Ability to Follow Directions: Fair Speech Pattern: Clear Hallucinations: None Thought Process: Intact and Goal Oriented Thought Content: positive for Intact Depressive Symptoms: Increased Anxiety and Increased Irritability Judgement: Fair Diagnostics Vital Signs (24Hr): Vital Signs - 24 hr 07/11/24 19:10 07/12/24 08:00 Temperature 99.1 F 97.3 F Pulse Rate 64 60 Respiratory Rate 16 18 Blood Pressure 136/68 123/76 Pulse Oximetry 97 99 Oxygen Delivery Method Room Air Room Air BMI result Body Mass Index 34.5 Medications Medications Current Medications Acetaminophen (Acetaminophen 325 Mg Tablet) 650 mg PO Q6H PRN PRN Reason: Headache/Pain Mild Scale (1-3) Last Admin: 07/12/24 08:26 Dose: 650 mg Al Hydroxide/Mg Hydroxide (Magnesium Hydrox/Alum Hydrox 30 Ml Oral.Susp) 30 ml PO Q6H PRN PRN Reason: Heartburn/Nausea Albuterol Sulfate (Albuterol Sulfate 90 Mcg 8 Gm Inhaler) 2 puff INHALE RQ4H PRN PRN Reason: Bronchospasm Benzocaine (Benzocaine 20 % Oral Gel 9 Gm Tube) 1 appl MUCOUS MEM TID PRN; Protocol PRN Reason: mouth pain Last Admin: 07/12/24 07:49 Dose: 1 appl Cariprazine (Cariprazine Hcl 1.5 Mg Capsule) 1.5 mg PO DAILY [facility] Last Admin: 07/12/24 08:05 Dose: 1.5 mg Gabapentin (Gabapentin 300 Mg Capsule) 600 mg PO TID [facility] Last Admin: 07/12/24 08:04 Dose: 600 mg Hydroxyzine HCl (Hydroxyzine Hcl 25 Mg Tablet) 25 mg PO Q6H PRN PRN Reason: Anxiety Last Admin: 07/12/24 12:08 Dose: 25 mg Magnesium Hydroxide (Milk Of Magnesia 30 Ml Oral.Susp) 30 ml PO DAILY PRN PRN Reason: Constipation Melatonin (Melatonin 3 Mg Tablet) 6 mg PO BEDTIME [facility] Last Admin: 07/11/24 20:14 Dose: 6 mg Methadone HCl (Methadone Hcl 20 Mg/2 Ml Oral.Conc) 115 mg PO DAILY [facility] Last Admin: 07/12/24 08:02 Dose: 115 mg Nicotine Polacrilex (Nicotine Polacrilex 2 Mg Gum) 2 mg BUCCAL Q2H PRN PRN Reason: Nicotine Cravings Last Admin: 07/11/24 15:06 Dose: 2 mg Trazodone HCl (Trazodone Hcl 50 Mg Tablet) 50 mg PO BEDTIME MRX1 PRN PRN Reason: Insomnia Allergies Allergies Allergy/AdvReac Type Severity Reaction Status Date / Time amoxicillin Allergy Anaphylaxis Verified 07/02/24 14:01 Penicillins Allergy Unknown Verified 07/02/24 14:01 Assessment & Plan Assessment & Plan (1) Major depression: Status: Acute Code(s): F32.9 - Major depressive disorder, single episode, unspecified (2) Polysubstance (including opioids) dependence, daily use: Status: Acute Code(s): F11.20 - Opioid dependence, uncomplicated; F19.20 - Other psychoactive substance dependence, uncomplicated Plan patient presents with issues of depression polysubstance use disorder, recently relapsed text psychosocial stressors. Also on housed. Also recently not engaged with health services. Has maintained maintenance. Potential danger to self an inpatient appropriate. Will continue methadone maintenance 115 mg. also clonidine, hydroxyzine as needed and gabapentin low dose scheduled. Will review scheduled medication for depression and anxiety, as patient adjusts to inpatient completed any withdrawals 07/05/2024: Increase gabapentin to 200 mg 3 times per day 07/06: increase gabapentin to 400 TID. start zoloft 50 mg daily for depression and anxiety. refer to [facility]. 07/07: mood remains improved. a little groggy today, reassured it is likely gabapentin and twill likely resolve in several days. 07/08: cont d/c planning referral monitor response to med trial 07/09: asking for lizzeth increase, not groggy. increase lizzeth to 600 TID. otherwise awaiting word from rehabs. no other complaints or requests. continue current mgmt otherwise. 07/10: accepted to [facility] for saturday. stable and safe. discharge saturday. 07/11- dced sertraline started vraylar- consider guanfacine - otherwise CTP with dc to [place] Thursday 07/12 CTP off sertralin on vraylar- some acting out around dc - Patient educated on: medication risk/benefits and therapeutic strategies Informed Consent: understands and further education needed Reason for continued inpatient stay Substantial Risk for: rapid decompensation Time Spent With Patient Time: Total time managing care of this patient today ____ minutes.
[2024-07-12] MEDS: Melatonin 3 MG TABLET 6 MG PO (20:25)
[2024-07-12 20:28] VITALS: BP 131/80; PULSE 77; RESP 16; TEMP 36.2; O2SAT 98
[2024-07-12] MEDS: Doxycycline Monohydrate 100 MG CAPSULE PO (21:08)
--- NOTE | 2024-07-12 21:11 | PC.NURSE ---
ABX started as patient is finding little or only temporary relief of tooth pain. upper L tooth is cracked with exposed root. teeth with carries and missing teeth. oral care encouraged. has equipment at bedside.
[2024-07-13 07:34] VITALS: BP 90/52; PULSE 60; RESP 16; TEMP 36.4; O2SAT 97
[2024-07-13] MEDS: methADONE HCl 20 MG/2 ML ORAL.CONC 115 MG PO (08:13)
[2024-07-13] MEDS: Gabapentin 300 MG CAPSULE 600 MG PO (08:15)
[2024-07-13] MEDS: Doxycycline Monohydrate 100 MG CAPSULE PO (08:15)
[2024-07-13] MEDS: Cariprazine HCl 1.5 MG CAPSULE PO (08:15)
[2024-07-13] MEDS: Acetaminophen 325 MG TABLET 650 MG PO (08:16)
[2024-07-13] MEDS: hydrOXYzine HCL 25 MG TABLET PO (09:31)
--- NOTE | 2024-07-13 10:18 | P.DS_ITS ---
DS: Providers Provider Date of Service: 07/13/24 Date of admission: 07/03/24 15:52 Primary care physician: Nonstaff Physician DS: Diagnosis Discharge Diagnosis (1) Major depression: Status: Acute (2) Polysubstance (including opioids) dependence, daily use: Status: Acute DS: Medications Discharge Medications Home Medications: Home Medications ?Medication ?Instructions ?Recorded ?Confirmed methadone 10 mg/mL oral 115 mg PO DAILY 06/03/22 07/03/24 concentrate (Methadone Intensol) Previous Rx's ?Medication ?Instructions ?Recorded albuterol sulfate 90 mcg/actuation 2 puff inhalation RQ4H PRN 07/13/24 aerosol inhaler (Ventolin HFA) Bronchospasm 30 days #1 inhaler aspirin 81 mg tablet,delayed 81 mg PO DAILY 30 days #30 tabs 07/13/24 release atorvastatin 40 mg tablet 40 mg PO DAILY 30 days #30 tabs 07/13/24 benzocaine 20 % mucosal gel 1 appl mucous membrane TID PRN 07/13/24 (Anbesol (benzocaine) Maximum mouth pain 30 days #9 grams Strength) cariprazine 1.5 mg capsule 1.5 mg PO DAILY 30 days #30 caps 07/13/24 (Vraylar) cholecalciferol (vitamin D3) 25 50 mcg (2 x 25 mcg (1,000 unit)) 07/13/24 mcg (1,000 unit) tablet (Vitamin PO DAILY 30 days #60 tabs D3) doxycycline monohydrate 100 mg 100 mg PO BID 15 days #30 caps 07/13/24 capsule gabapentin 300 mg capsule 600 mg (2 x 300 mg) PO TID 30 days 07/13/24 #180 caps hydroxyzine HCl 25 mg tablet 25 mg PO BID PRN Anxiety 30 days 07/13/24 #60 tabs ibuprofen 600 mg tablet 600 mg PO TID PRN Pain (Scale 07/13/24 Score 4-6) 30 days #90 tabs melatonin 5 mg tablet 5 mg PO BEDTIME PRN Insomnia 30 07/13/24 days #30 tabs naloxone 4 mg/actuation nasal 4 mg intranasal Q2M PRN opioid 07/13/24 spray (Narcan) overdose 1 day #2 ea nicotine (polacrilex) 2 mg gum 2 mg buccal Q2H PRN Nicotine 07/13/24 Cravings 30 days #120 ea Mental Status Exam Mental Status Exam Narrative: Casually dressed. Organized. Is less depressed and anxious. Denies suicidal thoughts. No plans or intent. No HI. No agitation or psychosis. Insight and judgment fair DS: Summary Hospital Course Hospital Course: per 07/04 admission note: HPI Subjective Notes: Conditional Voluntary Healthcare Proxy: No Guardianship: No Medical Problems Affecting Mental Status: No Narrative: Patient discussed nursing. Medical admission for rhabdo and dehydration. Labs reviewed. Prioir to this was anxious, depressed and suicidal. Was clear has not had a suicide attempt recently. Reports he was doing regarding sobriety and mood until 3 of his 6 children taken to DCF custody last week. That was no psychosis. No aggression. Sleep appetite disturbed. Has been unhoused, last at a [facility] [place] around 3-4 weeks ago. Supports are his father and his children's mother- x years but still friends. Reports he also has psychiatric services through [facility], but not attended last month because he had been doing well off the does not engage in services medications feels well reports hydroxyzine, clonidine are helpful. Open the gabapentin anxiety. Clear he did not want Seroquel trazodone on a regular basis also discussed adjusting to recent stressors along with sobriety from recent relapse, then reviewing need or not for scheduled medications for depression. This is also patient's preference Past Psychiatric History: reports diagnosis major depression in the past. Last inpatient episode approximately 1 year ago he had suicidal. Denies any history suicide attempts. No psychosis. No allen. Substance use disorder. Longest period of sobriety 16 months in approximately 2012. Medical Evaluation Reviewed: Yes [facility] Medical History Heart palpitations IVDU (intravenous drug user) Social History: Unhoused. Last at [facility] 3-4 weeks ago. Has 6 children in total, 3 recently taken into DCF custody. 9th grade education. 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 No legal issues since 2020. Supports are his father and his children's mother- x years but still friends. Substance History: polysubstance use disorder. Opiates and cocaine. Methadone maintenance through [facility] [address] daily dose of 115 mg same confirmed Precis: patient presents with issues of depression polysubstance use disorder, recently relapsed text psychosocial stressors. Also on housed. Also recently not engaged with health services. Has maintained maintenance. Potential danger to self an inpatient appropriate. Will continue methadone maintenance 115 mg. also clonidine, hydroxyzine as needed and gabapentin low dose scheduled. Will review scheduled medication for depression and anxiety, as patient adjusts to inpatient completed any withdrawals 07/05/2024: Increase gabapentin to 200 mg 3 times per day 07/06: increase gabapentin to 400 TID. start zoloft 50 mg daily for depression and anxiety. refer to [facility]. 07/07: mood remains improved. a little groggy today, reassured it is likely flash apentin and twill likely resolve in several days. 07/08: cont d/c planning referral monitor response to med trial 07/09: asking for lizzeth increase, not groggy. increase lizzeth to 600 TID. otherwise awaiting word from rehabs. no other complaints or requests. continue current mgmt otherwise. 07/10: accepted to [facility] for saturday. stable and safe. discharge saturday. 07/11- dced sertraline started vraylar- consider guanfacine - otherwise CTP with dc to [place] Thursday 07/12 CTP off sertralin on vraylar- some acting out around dc - 07/13: c/o anxiety, upset at being sent to [facility] and not elsewhere. nevertheless, no safety concerns. meds reviewed, reconciled, prescribed. pt discharged to [facility] as per plan. Time Spent with Patient Time attestation: Total time managing care of this patient today __35__ minutes. Discharge Plan Discharge Anticipated Discharge Date/Time: 07/13/24 12:15 Patient Disposition: Xfer Inpatient Rehab Fac Discharge Diagnosis: Major Depressive Disorder Polysubstance Use Disorder Referrals: [facility] [Provider Group] - 1 Week ([facility] was added to patients chart. Please call [phone] for follow up appt.) Discharge Medications: New nicotine (polacrilex) 2 mg Gum 2 mg buccal Q2H PRN (Reason: Nicotine Cravings) 30 Days Qty: 120 1RF doxycycline monohydrate 100 mg Capsule 100 mg PO BID 15 Days Qty: 30 0RF albuterol sulfate [Ventolin HFA] 90 mcg/actuation Hfa Aerosol Inhaler 2 puff inhalation RQ4H PRN (Reason: Bronchospasm) 30 Days Qty: 1 0RF gabapentin 300 mg Capsule 600 mg PO TID 30 Days Qty: 180 0RF Anbesol (benzocaine) Max Str 20 % Gel 1 appl mucous membrane TID PRN (Reason: mouth pain) 30 Days Qty: 9 0RF Protocol: Apply to: Apply to: affected area Vraylar 1.5 mg Capsule 1.5 mg PO DAILY 30 Days Qty: 30 0RF naloxone [Narcan] 4 mg/actuation spray,non-aerosol 4 mg intranasal Q2M PRN (Reason: opioid overdose) 1 Days Qty: 2 0RF Rx Instructions: spray 1 dose into ONE nostril; alternate nostrils w each dose until help arrives Continued methadone [Methadone Intensol] 10 mg/mL Concentrate 115 mg PO DAILY atorvastatin 40 mg Tablet 40 mg PO DAILY 30 Days Qty: 30 0RF aspirin 81 mg tablet,delayed release (DR/EC) 81 mg PO DAILY 30 Days Qty: 30 0RF hydroxyzine HCl 25 mg Tablet 25 mg PO BID PRN (Reason: Anxiety) 30 Days Qty: 60 0RF Rx Instructions: take 1 to 2 tablets by mouth twice a day as needed for anxiety cholecalciferol (vitamin D3) [Vitamin D3] 25 mcg (1,000 unit) Tablet 50 mcg PO DAILY 30 Days Qty: 60 0RF melatonin 5 mg Tablet 5 mg PO BEDTIME PRN (Reason: Insomnia) 30 Days Qty: 30 0RF Changed ibuprofen 600 mg Tablet 600 mg PO TID PRN (Reason: Pain (Scale Score 4-6)) 30 Days Qty: 90 0RF Discontinued trazodone 50 mg Tablet 50 mg PO BEDTIME PRN (Reason: Insomnia) Rx Instructions: take 1-2 tablets by mouth at bedtime as needed Discharge Orders: Discharge Order (Routine); Ordered 07/13/24 Ordered By: Rafael Dennis Diet: Advance to usual diet Activity on Discharge: As tolerated Stand Alone Forms: Patient Portal Discharge page, Community Support Print Language: Korean Care Plan Goals: remain safe and sober in the outpatient treatment setting Health Concerns: dental infection Plan of Treatment: take medications as prescribed, attend inpatient rehab Assessment: not at imminent risk of harm to self or others Discharge Date/Time: 07/13/24 12:13
[2024-07-13 10:48] LABS: COVID-19 Test Negative (Negative); IDNOW Serial# 152EDE1D
== END 2024-07-13 12:13 | DRG 881 ==
PROVIDERS: Admitting Provider Psychiatry & Neurology Psychiatry; Visit Provider Psychiatry & Neurology Psychiatry
DX: F32.9 Major depressive disorder, single episode, unspecified (principal); R45.851 Suicidal ideations; F11.20 Opioid dependence, uncomplicated; F19.20 Other psychoactive substance dependence, uncomplicated; Z63.32 Other absence of family member; Z59.02 Unsheltered homelessness; Z20.822 Contact with and (suspected) exposure to COVID-19; Z79.82 Long term (current) use of aspirin; Z79.899 Other long term (current) drug therapy
CPT/HCPCS: 87635

== ENCOUNTER → 2024-07-03 15:52 | Outpatient (BNV) | payer OTHER, SELFPAY | PROVIDERS: Admitting Provider Psychiatry & Neurology Psychiatry; Visit Provider Psychiatry & Neurology Psychiatry | DX: F32.2 Major depressive disorder, single episode, severe without psychotic features (principal); F11.20 Opioid dependence, uncomplicated; F19.20 Other psychoactive substance dependence, uncomplicated | CPT/HCPCS: 99231; 99232 ==

== ENCOUNTER → 2024-07-03 15:52 | Outpatient (BNV) | payer OTHER, SELFPAY | PROVIDERS: Admitting Provider Psychiatry & Neurology Psychiatry; Visit Provider Psychiatry & Neurology Psychiatry | DX: F32.2 Major depressive disorder, single episode, severe without psychotic features (principal); F11.20 Opioid dependence, uncomplicated; F19.20 Other psychoactive substance dependence, uncomplicated | CPT/HCPCS: 99231 ==

== ENCOUNTER 2024-10-20 19:03 | Emergency (ER) | payer MEDICARE, MEDICAID, SELFPAY ==
[2024-10-20 19:10] VITALS: BP 128/67; BP 138/72; PULSE 110; PULSE 92; RESP 18; TEMP 36.8; O2SAT 96
[2024-10-20 19:44] VITALS: BMI 24.8
--- NOTE | 2024-10-20 19:49 | ED.GENADULT ---
HPI - General Adult General Chief complaint: General Medical Stated complaint: POSSIBLE ANXIETY PER EMS Time Seen by Provider: 10/20/24 19:28 Source: patient and EMS Mode of arrival: EMS Limitations: no limitations History of Present Illness ED Provider: DR. Eubanks HPI narrative: A 43-year-old male homeless feels anxious and tremulous otherwise patient has no complaints, has no place to go to [facility], no SI, no HI, no hallucination. Declined substance abuse or alcohol abuse. Related Data Home Medications ?Medication ?Instructions ?Recorded ?Confirmed methadone 10 mg/mL oral 115 mg PO DAILY 06/03/22 07/03/24 concentrate (Methadone Intensol) Previous Rx's ?Medication ?Instructions ?Recorded albuterol sulfate 90 mcg/actuation 2 puff inhalation RQ4H PRN 07/13/24 aerosol inhaler (Ventolin HFA) Bronchospasm 30 days #1 inhaler aspirin 81 mg tablet,delayed 81 mg PO DAILY 30 days #30 tabs 07/13/24 release atorvastatin 40 mg tablet 40 mg PO DAILY 30 days #30 tabs 07/13/24 benzocaine 20 % mucosal gel 1 appl mucous membrane TID PRN 07/13/24 (Anbesol (benzocaine) Maximum mouth pain 30 days #9 grams Strength) cariprazine 1.5 mg capsule 1.5 mg PO DAILY 30 days #30 caps 07/13/24 (Vraylar) cholecalciferol (vitamin D3) 25 50 mcg (2 x 25 mcg (1,000 unit)) 07/13/24 mcg (1,000 unit) tablet (Vitamin PO DAILY 30 days #60 tabs D3) doxycycline monohydrate 100 mg 100 mg PO BID 15 days #30 caps 07/13/24 capsule gabapentin 300 mg capsule 600 mg (2 x 300 mg) PO TID 30 days 07/13/24 #180 caps hydroxyzine HCl 25 mg tablet 25 mg PO BID PRN Anxiety 30 days 07/13/24 #60 tabs ibuprofen 600 mg tablet 600 mg PO TID PRN Pain (Scale 07/13/24 Score 4-6) 30 days #90 tabs melatonin 5 mg tablet 5 mg PO BEDTIME PRN Insomnia 30 07/13/24 days #30 tabs naloxone 4 mg/actuation nasal 4 mg intranasal Q2M PRN opioid 07/13/24 spray (Narcan) overdose 1 day #2 ea nicotine (polacrilex) 2 mg gum 2 mg buccal Q2H PRN Nicotine 07/13/24 Cravings 30 days #120 ea Allergies Allergy/AdvReac Type Severity Reaction Status Date / Time amoxicillin Allergy Anaphylaxis Verified 10/20/24 19:45 Penicillins Allergy Unknown Verified 10/20/24 19:45 Review of Systems Review of Systems: All other systems are reviewed and are negative Constitutional: Reports as per HPI and Reports no additional constitutional complaints Eyes: Reports as per HPI and Reports no additional eye complaints Reports system reviewed and no additional complaints, except as documented Cardiovascular: Reports as per HPI and Reports no additional cardiovascular complaints Respiratory: Reports as per HPI and Reports no additional respiratory complaints Gastrointestinal: Reports as per HPI and Reports no additional gastrointestinal complaints Genitourinary: Reports no additional female genitourinary complaints Musculoskeletal: Reports no additional musculoskeletal complaints Skin/Breast: Reports system reviewed and no additional complaints, except as docu Psychiatric: Reports no additional psychiatric complaints Endocrine: Reports no additional endocrine complaints Hematologic/Lymphatic: Reports no additional hematologic/lymphatic complaints Allergic/Immunologic: Reports no additional allergic/immunologic complaints Reports system reviewed and no additional complaints, except as documented and Reports Abnormal speech present [facility] Past Medical History Medical History Heart palpitations IVDU (intravenous drug user) Social History Social History Household Members: None Housing: Homeless Do you presently have visiting nurse or other home services: No Alcohol intake: never Patient Tobacco Use Status: Never used Tobacco Tobacco use type: Cigarette Smoked in Last 30 Days: Yes e-Cigarette/Vaping Use: Currently Using Second Hand Smoke Exposure: No Use of substances other than those prescribed or required for medical reasons: Yes Substance Use Type: Crack/Cocaine service: No Current occupational status: unemployed Sexual orientation: Straight/Heterosexual Physical Exam ED Vital Signs: Vital Signs - 24 hr 10/20/24 19:10 Temperature 98.3 F Pulse Rate 92 Respiratory Rate 18 Blood Pressure 128/67 Pulse Oximetry 96 Oxygen Delivery Method Room Air BMI result Body Mass Index 24.8 Vital signs have been reviewed and appear to be correct. Blood pressure elevated. Heart rate normal. Respiratory rate normal. Temperature normal. Oxygen saturation normal. Appearance: Alert. Oriented X3. No acute distress. Head: Normal external exam. Normocephalic. Atraumatic. No Mcgarry signs noted. No raccoon eyes noted Eyes: PERRLA. EOMI. Conjunctiva and sclera normal. Eyelids normal. ENT: TM's Normal. Pharynx normal. Uvula midline. Moist mucous membranes. No trismus noted. No drooling noted. No muffled voice noted. Neck: Normal inspection. Neck supple. FROM. No adenopathy. Thyroid Normal. No meningeal signs. No neck mass noted. CVS: Normal heart rate and rhythm. Heart sound normal. No murmurs noted. Pulses normal throughout. Respiratory: No respiratory distress. Painless inspiration. Breath sounds normal. No wheezes/rales/rhonchi noted. Chest nontender. No accessory muscle usage noted or decreased air movement noted. Abdomen: Soft and nontender. Bowel sounds normal in all 4 quadrants. No distention noted. No organomegaly noted. No visible injury noted. Back: No CVA tenderness. Full range of motion noted. Skin: Skin warm and dry. Normal skin color. Normal skin turgor. No rashes/lesions/lacerations noted. Extremities: No lower extremity edema. Extremities exhibit normal range of motion. Extremities nontender. Neuro: Oriented X 3. Cranial nerve exam: II-XII are grossly intact No motor deficit. No sensory deficit. Reflexes normal. Course Reevaluation(s) Reevaluation #1: Anxiety likely holiday related, no family or friends around, unremarkable labs or urine, no specific symptoms to the patient at this point. Will discharge to follow-up with PCP. Time: 21:00 Medical Decision Making Differential Diagnosis Differential Diagnoses: The differential diagnosis associated with the presentation includes (Anxiety, electrolyte derangement, severe anemia, substance abuse, depression, UTI.) Admission/Observation Consideration of admission/observation: Escalation of care including admission/observation considered Lab Data MDM Lab Attestation statement: I reviewed the patient's lab results. Discharge Plan Discharge Clinical Impression: Anxiety Patient Disposition: Still a Patient Instructions: Anxiety (ED) Prescriptions: No Action methadone [Methadone Intensol] 10 mg/mL Concentrate 115 mg PO DAILY nicotine (polacrilex) 2 mg Gum 2 mg buccal Q2H PRN (Reason: Nicotine Cravings) 30 Days Qty: 120 1RF doxycycline monohydrate 100 mg Capsule 100 mg PO BID 15 Days Qty: 30 0RF albuterol sulfate [Ventolin HFA] 90 mcg/actuation Hfa Aerosol Inhaler 2 puff inhalation RQ4H PRN (Reason: Bronchospasm) 30 Days Qty: 1 0RF gabapentin 300 mg Capsule 600 mg PO TID 30 Days Qty: 180 0RF Anbesol (benzocaine) Max Str 20 % Gel 1 appl mucous membrane TID PRN (Reason: mouth pain) 30 Days Qty: 9 0RF Protocol: Apply to: Apply to: affected area Vraylar 1.5 mg Capsule 1.5 mg PO DAILY 30 Days Qty: 30 0RF atorvastatin 40 mg Tablet 40 mg PO DAILY 30 Days Qty: 30 0RF aspirin 81 mg tablet,delayed release (DR/EC) 81 mg PO DAILY 30 Days Qty: 30 0RF hydroxyzine HCl 25 mg Tablet 25 mg PO BID PRN (Reason: Anxiety) 30 Days Qty: 60 0RF Rx Instructions: take 1 to 2 tablets by mouth twice a day as needed for anxiety ibuprofen 600 mg Tablet 600 mg PO TID PRN (Reason: Pain (Scale Score 4-6)) 30 Days Qty: 90 0RF cholecalciferol (vitamin D3) [Vitamin D3] 25 mcg (1,000 unit) Tablet 50 mcg PO DAILY 30 Days Qty: 60 0RF melatonin 5 mg Tablet 5 mg PO BEDTIME PRN (Reason: Insomnia) 30 Days Qty: 30 0RF naloxone [Narcan] 4 mg/actuation spray,non-aerosol 4 mg intranasal Q2M PRN (Reason: opioid overdose) 1 Days Qty: 2 0RF Rx Instructions: spray 1 dose into ONE nostril; alternate nostrils w each dose until help arrives Print Language: Italian
[2024-10-20 20:23] LABS: MANUAL DIFF FLAG NO
[2024-10-20 20:31] LABS: Basophils Absolute Auto 0.1 X10*3/uL (0.0-0.2); Basophils Percent Auto 0.8 % (0-2); Eosinophils Absolute Auto 0.1 X10*3/uL (0.0-0.4); Eosinophils Percent Auto 0.8 % (0-4); Hematocrit 39.9 % (42.0-52.0); Hemoglobin 13.1 g/dl (14.0-18.0); Imm Gran Abs Auto 0.02 X10*3/uL (0.00-0.03); Imm Gran Pct Auto 0.2 % (0.0-0.4); Lymphocytes Percent Auto 33.4 % (20-40); Mean Corpuscular HGB Conc 32.8 g/dl (31.0-36.0); Mean Corpuscular Hemoglobin 28.1 pg (27.0-33.0); Mean Corpuscular Volume 85.4 fL (80.0-98.0); Mean Platelet Volume 10.4 fL (9.4-12.4); Monocytes Absolute Auto 0.9 X10*3/uL (0.1-1.2); Monocytes Percent Auto 9.9 % (2-11); Neutrophils Absolute Auto 4.9 x10*3/uL (2.0-8.3); Neutrophils Percent Auto 54.9 % (45-73); Platelet Count 337 X10*3/uL (160-400); Red Blood Count 4.67 X10*6/uL (4.60-5.80); White Blood Count 8.9 X10*3/uL (4.8-10.8)
[2024-10-20 20:46] LABS: Anion Gap 14 (12-20)
[2024-10-20 20:49] LABS: Blood Urea Nitrogen 18 mg/dL (9-16); Calcium 9.9 mg/dL (8.4-10.2); Carbon Dioxide 27 mmol/L (22-29); Chloride 103 mmol/L (96-108); Creatinine Clr Calc Pharmacy 80.1; Estimated Glomerular Filt Rate > 60; Glucose Random 105 mg/dL (60-115); Lipase 17 U/L (8-78); Potassium 4.7 mmol/L (3.3-5.1); Sodium 139 mmol/L (135-145)
[2024-10-20 21:10] LABS: Appearance Urine Cloudy; Color Urine Dark Yellow; Glucose Urine UA Negative (Negative); Leukocyte Esterase Urine Negative (Negative); Nitrite Urine Negative (Negative); PH 5.5 (5.0-9.0); Specific Gravity - Urine >= 1.030 (1.005-1.025); UMIC TRIGGER UACC YES; Urine Blood Negative (Negative); Urine Ketones 15 mg/dL (Negative); Urine Protein 30 (1+) mg/dL (Neg-Trace)
[2024-10-20 21:20] VITALS: BP 128/67; PULSE 92; RESP 18; TEMP 36.8; O2SAT 96
[2024-10-20 22:06] LABS: Bacteria Urine None Seen (None Seen); RBC Urine 0-2 /HPF (0-2); WBC Urine 0-5 /HPF (0-5)
== END 2024-10-20 21:20 | disposition home or self-care (01) ==
PROVIDERS: Emergency Provider Emergency Medicine
DX: F41.1 Generalized anxiety disorder (principal); Z59.00 Homelessness unspecified; Z79.899 Other long term (current) drug therapy
CPT/HCPCS: 36415; 80048; 81001; 83690; 85025; 99283; 99284

== ENCOUNTER 2024-11-03 17:25 | Emergency (ER) | payer MEDICARE, MEDICAID, SELFPAY ==
[2024-11-03 18:13] VITALS: BP 102/60; PULSE 92; RESP 18; TEMP 36.7; O2SAT 95; BMI 27.2
--- NOTE | 2024-11-03 18:19 | ED_ITS ---
HPI - General Adult General Chief complaint: Skin/Abscess/Foreign Body Stated complaint: ?Rash on legs Related Data Home Medications ?Medication ?Instructions ?Recorded ?Confirmed methadone 10 mg/mL oral 115 mg PO DAILY 06/03/22 07/03/24 concentrate (Methadone Intensol) Previous Rx's ?Medication ?Instructions ?Recorded albuterol sulfate 90 mcg/actuation 2 puff inhalation RQ4H PRN 07/13/24 aerosol inhaler (Ventolin HFA) Bronchospasm 30 days #1 inhaler aspirin 81 mg tablet,delayed 81 mg PO DAILY 30 days #30 tabs 07/13/24 release atorvastatin 40 mg tablet 40 mg PO DAILY 30 days #30 tabs 07/13/24 benzocaine 20 % mucosal gel 1 appl mucous membrane TID PRN 07/13/24 (Anbesol (benzocaine) Maximum mouth pain 30 days #9 grams Strength) cariprazine 1.5 mg capsule 1.5 mg PO DAILY 30 days #30 caps 07/13/24 (Vraylar) cholecalciferol (vitamin D3) 25 50 mcg (2 x 25 mcg (1,000 unit)) 07/13/24 mcg (1,000 unit) tablet (Vitamin PO DAILY 30 days #60 tabs D3) doxycycline monohydrate 100 mg 100 mg PO BID 15 days #30 caps 07/13/24 capsule gabapentin 300 mg capsule 600 mg (2 x 300 mg) PO TID 30 days 07/13/24 #180 caps hydroxyzine HCl 25 mg tablet 25 mg PO BID PRN Anxiety 30 days 07/13/24 #60 tabs ibuprofen 600 mg tablet 600 mg PO TID PRN Pain (Scale 07/13/24 Score 4-6) 30 days #90 tabs melatonin 5 mg tablet 5 mg PO BEDTIME PRN Insomnia 30 07/13/24 days #30 tabs naloxone 4 mg/actuation nasal 4 mg intranasal Q2M PRN opioid 07/13/24 spray (Narcan) overdose 1 day #2 ea nicotine (polacrilex) 2 mg gum 2 mg buccal Q2H PRN Nicotine 07/13/24 Cravings 30 days #120 ea Allergies Allergy/AdvReac Type Severity Reaction Status Date / Time amoxicillin Allergy Anaphylaxis Verified 11/03/24 18:16 Penicillins Allergy Unknown Verified 11/03/24 18:16 [facility] Past Medical History Medical History Heart palpitations IVDU (intravenous drug user) Social History Social History Household Members: None Housing: Homeless Do you presently have visiting nurse or other home services: No Alcohol intake: never Patient Tobacco Use Status: Never used Tobacco Tobacco use type: Cigarette e-Cigarette/Vaping Use: Currently Using Second Hand Smoke Exposure: No Substance Use Type: Crack/Cocaine Advance Directives: No Advance Directives Information Provided: No service: No Current occupational status: unemployed Sexual orientation: Straight/Heterosexual Physical Exam ED Vital Signs: Vital Signs - 24 hr 11/03/24 18:13 Temperature 98.0 F Pulse Rate 92 Respiratory Rate 18 Blood Pressure 102/60 Pulse Oximetry 95 Oxygen Delivery Method Room Air BMI result Body Mass Index 27.2 Course Course Course Narrative: RME: Patient presents to the ED with bilateral rash on feet unknown timeframe. Patient to be evaluated [facility] Discharge Plan Discharge Clinical Impression: Rash Patient Disposition: Left W/O Completing Treatment Prescriptions: No Action methadone [Methadone Intensol] 10 mg/mL Concentrate 115 mg PO DAILY nicotine (polacrilex) 2 mg Gum 2 mg buccal Q2H PRN (Reason: Nicotine Cravings) 30 Days Qty: 120 1RF doxycycline monohydrate 100 mg Capsule 100 mg PO BID 15 Days Qty: 30 0RF albuterol sulfate [Ventolin HFA] 90 mcg/actuation Hfa Aerosol Inhaler 2 puff inhalation RQ4H PRN (Reason: Bronchospasm) 30 Days Qty: 1 0RF gabapentin 300 mg Capsule 600 mg PO TID 30 Days Qty: 180 0RF Anbesol (benzocaine) Max Str 20 % Gel 1 appl mucous membrane TID PRN (Reason: mouth pain) 30 Days Qty: 9 0RF Protocol: Apply to: Apply to: affected area Vraylar 1.5 mg Capsule 1.5 mg PO DAILY 30 Days Qty: 30 0RF atorvastatin 40 mg Tablet 40 mg PO DAILY 30 Days Qty: 30 0RF aspirin 81 mg tablet,delayed release (DR/EC) 81 mg PO DAILY 30 Days Qty: 30 0RF hydroxyzine HCl 25 mg Tablet 25 mg PO BID PRN (Reason: Anxiety) 30 Days Qty: 60 0RF Rx Instructions: take 1 to 2 tablets by mouth twice a day as needed for anxiety ibuprofen 600 mg Tablet 600 mg PO TID PRN (Reason: Pain (Scale Score 4-6)) 30 Days Qty: 90 0RF cholecalciferol (vitamin D3) [Vitamin D3] 25 mcg (1,000 unit) Tablet 50 mcg PO DAILY 30 Days Qty: 60 0RF melatonin 5 mg Tablet 5 mg PO BEDTIME PRN (Reason: Insomnia) 30 Days Qty: 30 0RF naloxone [Narcan] 4 mg/actuation spray,non-aerosol 4 mg intranasal Q2M PRN (Reason: opioid overdose) 1 Days Qty: 2 0RF Rx Instructions: spray 1 dose into ONE nostril; alternate nostrils w each dose until help arrives Discharge Date/Time: 11/03/24 20:39
--- NOTE | 2024-11-03 20:37 | PC.NURSE ---
Pt upset with being brought to [facility], explained to pt it is very busy and this is all we have available at this time. Pt no longer wanting to be seen, provider aware, LWCT.
== END 2024-11-03 20:39 | disposition left against medical advice (07) ==
PROVIDERS: Emergency Provider Emergency Medicine
DX: R21 Rash and other nonspecific skin eruption (principal)
CPT/HCPCS: 99281

== ENCOUNTER 2024-11-12 19:43 | Emergency (ER) | payer MEDICARE, MEDICAID, SELFPAY | END 2024-11-12 21:40 | disposition left against medical advice (07) | PROVIDERS: Emergency Provider Emergency Medicine | DX: L02.415 Cutaneous abscess of right lower limb (principal) ==

== ENCOUNTER 2024-11-21 01:17 | Emergency (ER) | payer MEDICARE, MEDICAID, SELFPAY ==
[2024-11-21 01:34] VITALS: BP 150/87; PULSE 90; RESP 16; TEMP 35.8; O2SAT 99; BMI 22.8
--- OUTSIDE RECORDS SUMMARY | 2024-11-21 04:16 | XMS_ITS | Patient Health Record ---
Author Organization [facility] Address [address], [place] [id number] Care Team Providers Care Buddhist Monk Name Role Phone [facility], [facility] Primary Care Provider Nellie Lynch Unavailable [place] Unavailable [phone] Allergies Allergen (clinical drug ingredient) Drug/Non Drug Allergy documented on EMR Reaction Allergy Type Onset Date Status codeine codine (uncoded) vomiting Allergy Act poli Wellbutrin XR (uncoded) Unknown Allergy Active amoxicillin Amoxicillin (uncoded) Hives down leg Allergy Active Reason For Referral No Information Medications Medication SIG (Take, Route, Frequency, Duration) Notes Start Date End Date Status CeleXA 20 mg orally 1/2 tab x 1 week and then 1/4 tab x 1 week 03/21/2017 Active omeprazole 20 mg 1 cap(s) orally once a day for 30 day(s) filled 02/27/17 Active cloNIDine 0.1 mg 1 tab(s) orally qhs for 30 day(s) 03/21/2017 Active multivitamin Multiple Vitamins 1 tab(s) orally once a day PRN Active Immunizations Vaccine Route Administration Date Status Comme nts Td offered and declined Unknown 06/11/2013 Administered PPD offered and declined Unknown 06/11/2013 Administere d Tdap Unknown 06/11/2013 Administered Hepatitis B (20 or more) Unknown 06/11/2013 Administere d PPD negative Unknown 03/08/2013 Administered Social History Tobacco Use: Social History Observation Description Date Details (start date - stop date) Current Smoker NA - NA Tobacco Use Assessment MU Question Answer Notes Patient counseled on the michel gers of tobacco use and advised to quit: 03/05/2017 Patient counseled on the michel butlers of tobacco use and advised to quit: 03/05/2017 What is your current smoking status? current smo ker What is your current smoking status? current smo ker How often do you smoke? every day How often do you smoke? every day How many cigarettes a day do you smoke? 6-10 How many cigarettes a day do you smoke? 6-10 How soon after you wake up d o you smoke your first cigarette? 6-30 minutes How soon after you wake up d o you smoke your first cigarette? 6-30 minutes Are you interested in quitting? thinking about q uitting Are you interested in quitting? thinking about q uitting Problems Problem Type SNOMED Code ICD Code Onset Dates Problem Status W/U Status Risk Notes Problem Viral wart (98922258) Viral wart, unspecified (B07.9) Active confirmed Problem Tobacco user (803862465) Nicotine dependence, cigarettes, uncomplicated (F17.210) Active confirmed Problem Psychoactive substance dependence (8789402) Other psychoactive substance dependence, uncomplicated (F19.20) Active confirmed Methadone : 70mg [place], [place] Problem Anxiety disorder (371542446) Anxiety disorder, unspecified (F41.9) Active confirmed Problem Somatoform disorder (62214027) Somatoform disorder, 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) Active confirmed Problem Attention deficit hyperactivity disorder (301607699) Attention-defici t hyperactivity disorder, unspecified type (F90.9) Active confirmed Problem Palpitations (35446402) Palpitations (R00.2) Active confirmed Encounters Encounter Location Date Provider Diagnosis [facility] [address] [place] [address] [phone] 03/19/2024 [place] [facility] [address] [place] [address] [phone] 03/31/2024 [place] Plan Of Treatment Pending Test Test Name Order Date EKG 02/11/2017 Insurance Providers Payer Name Payer Address Payer Phone Subscriber Number Group Number Insured Name Patient Relationship to Insured Coverage Start Date Coverage End Date [place] Medicare Part [place] [employer] [address] [place] [address] [id number] Tavo Espinoza Self - patient is the insured 1 [place] Medicaid Standard [address] [place] [address] [phone] [id number] Tavo Espinoza Self - patient is the insured Medical (General) History Medical History History ICD Code pt reports ADHD, Anxiety, Ex plosive P. Disorder, Depression. + Insomnia: tosses and turns at night tobacco use Opioid and Cocaine use, ETOH abuse + hx TBI Palpitations Surgical History Surgery Date(Month/Year) tonsils removed as child Hospitalization History Reason Date(Month/Year) [facility]: facial laceration 10/03/13 [facility] : palpitations: EKG Sinus bradyca rdia 02/16/17
--- OUTSIDE RECORDS SUMMARY | 2024-11-21 04:16 | XMS_ITS ---
Author Organization [facility] Address [address] [place] [phone] Care Team Providers Care Linux Systems Administrator Name Role Phone [place] [facility] Primary Care Provider Nellie Lynch Unavailable [place] Unavailable [phone] Encounters Encounter Location Date Provider Diagnosis [facility] [address] [place] [phone] 03/19/2024 [place] Plan Of Treatment No Information Progress Notes * Tavo ESPINOZADOB:1980 (43 yo M)Acc No.[id number]:03/19/2024 Case Management Patient:?Tavo Espinoza Provider:Alisia Kruger :1980???Age:43 Y???Sex:Male Mejia e:03/19/2024 Address:[address], [place], [place] Pcp:Group Aniya Rick Subjective: * Chief Complaints: * ??? * HPI: ???Adolescent Depression Screening:? 03.19.2024 ?Client in on time today, client states since last office visit he has found an apartment, he also recieved his B/C, copy made in file. Client has been educated ?regarding [facility] [employer] ID form that can be filled out by our Organization/agency. Educated client he will need an ID in order to receive his ?Social Security card and in order to sign up for his SSI application as proof of identity. ?Client has just informed me that he has an upcoming appointment with his DrDaya to have his lung checked due to a finding of a nodule the size of a grape now ?Client also mentioned he needs help contacting his DTA worker: Ms. Gillis @[phone], client having a difficult time communicating with her, she never ?answers calls and voicemail box is always full. Educated client to take a screenshot of the last DTA letter, in order to get the clients agency ID # and bring ?back and then the copy of his B/C could be sent via fax. Client recent diagnosis of Asthma, client not happy about it. * Medical History:? Objective: Assessment: Plan: * Treatment: * Images: Billing Information: * Visit Code:? * Procedure Codes:? Care Plan Details* * Sign off status: Completed true * Provider:?Bao Kruger Date:?03/19/2024 Generated for Mark garcia/Maulik/eTdayanasmitting on:?11/21/2024 04:15 AM EST
--- OUTSIDE RECORDS SUMMARY | 2024-11-21 04:16 | XMS_ITS ---
Author Organization [facility] Address [address] [place] [phone] Care Team Providers Care Bicycle Subassembler Name Role Phone Aniya [facility] Primary Care Provider Nellie Lynch Unavailable [phone] [place] Unavailable [phone] Encounters Encounter Location Date Provider Diagnosis [facility] [address] [place] [phone] 03/31/2024 [place] Plan Of Treatment No Information Progress Notes * Tavo ESPINOZADOB:1980 (43 yo M)Acc No.[id number]:03/31/2024 Case Management Patient:?Tavo Espinoza Provider:?Bao Kruger :1980???Age:43 Y???Sex:Male Mejia e:03/31/2024 Address:[address], [place], [id number] Pcp:Group Aniya Rick Subjective: * Chief Complaints: * ??? * HPI: ???Social Service:? 03.31.2024 ?Client is very concerned and stressed out over his children, afraid of losing them to the system, DCF. Client states ? children are with the mother and she is not doing right things afraid to tell me anything due to being a manditory worker. Client is expressing his ?past hurt as child, and the things he had to see and endure growing up. I asked the client if he has a therapist or counselor, that he really needs one to speak ?and express freely what he is dealing with and learn to identify the triggers. ?Client wants to work on his HOUSING to try to get his childrent before the system does as he states. ?I am providing client with [facility] for emergency housing for parents with children, also calling [facility] to locate 15 year old daughter that had ?been removed from the mother three years ago. Client wants to be involved in his childrens lives. * Medical History:? Objective: Assessment: Plan: * Treatment: * Images: Billing Information: * Visit Code:? * Procedure Codes:? Care Plan Details* * Sign off status: Completed true * Provider:Alisia Kruger Date:?03/31/2024 Generated for Mark garcia/Maulik/Brionnasmitting on:?11/21/2024 04:15 AM EST
== END 2024-11-21 04:15 | disposition left against medical advice (07) ==
PROVIDERS: Emergency Provider Emergency Medicine
DX: R21 Rash and other nonspecific skin eruption (principal); Z59.00 Homelessness unspecified; Z53.21 Procedure and treatment not carried out due to patient leaving prior to being seen by health care provider
CPT/HCPCS: 99281

== ENCOUNTER 2024-11-22 06:43 | Emergency (ER) | payer MEDICARE, MEDICAID, SELFPAY ==
[2024-11-22 06:53] VITALS: BP 130/73; PULSE 63; RESP 14; TEMP 36.7; O2SAT 96; BMI 23.1
== END 2024-11-22 09:33 | disposition left against medical advice (07) ==
LOC: HO.ED 09:12
PROVIDERS: Emergency Provider Emergency Medicine
DX: R21 Rash and other nonspecific skin eruption (principal)
CPT/HCPCS: 99281

== ENCOUNTER 2024-11-28 02:02 | Emergency (ER) | payer MEDICARE, MEDICAID, SELFPAY ==
[2024-11-28 02:09] VITALS: BP 168/90; PULSE 72
[2024-11-28 02:22] VITALS: BP 132/65; PULSE 92; RESP 16; TEMP 36.8; O2SAT 97; BMI 23.9
--- NOTE | 2024-11-28 02:48 | ED.SKABFB ---
HPI - Skin/Abscess/Foreign Bdy General Chief complaint: Skin/Abscess/Foreign Body Stated complaint: blisters, drug use Time Seen by Provider: 11/28/24 02:47 Source: patient Mode of arrival: ambulatory Limitations: no limitations History of Present Illness ED Provider: HPI narrative: Patient IVDA user complaining of lesions over his thighs for last few days no fever no chills Related Data Home Medications ?Medication ?Instructions ?Recorded ?Confirmed methadone 10 mg/mL oral 115 mg PO DAILY 06/03/22 07/03/24 concentrate (Methadone Intensol) Previous Rx's ?Medication ?Instructions ?Recorded albuterol sulfate 90 mcg/actuation 2 puff inhalation RQ4H PRN 07/13/24 aerosol inhaler (Ventolin HFA) Bronchospasm 30 days #1 inhaler aspirin 81 mg tablet,delayed 81 mg PO DAILY 30 days #30 tabs 07/13/24 release atorvastatin 40 mg tablet 40 mg PO DAILY 30 days #30 tabs 07/13/24 benzocaine 20 % mucosal gel 1 appl mucous membrane TID PRN 07/13/24 (Anbesol (benzocaine) Maximum mouth pain 30 days #9 grams Strength) cariprazine 1.5 mg capsule 1.5 mg PO DAILY 30 days #30 caps 07/13/24 (Vraylar) cholecalciferol (vitamin D3) 25 50 mcg (2 x 25 mcg (1,000 unit)) 07/13/24 mcg (1,000 unit) tablet (Vitamin PO DAILY 30 days #60 tabs D3) doxycycline monohydrate 100 mg 100 mg PO BID 15 days #30 caps 07/13/24 capsule gabapentin 300 mg capsule 600 mg (2 x 300 mg) PO TID 30 days 07/13/24 #180 caps hydroxyzine HCl 25 mg tablet 25 mg PO BID PRN Anxiety 30 days 07/13/24 #60 tabs ibuprofen 600 mg tablet 600 mg PO TID PRN Pain (Scale 07/13/24 Score 4-6) 30 days #90 tabs melatonin 5 mg tablet 5 mg PO BEDTIME PRN Insomnia 30 07/13/24 days #30 tabs naloxone 4 mg/actuation nasal 4 mg intranasal Q2M PRN opioid 07/13/24 spray (Narcan) overdose 1 day #2 ea nicotine (polacrilex) 2 mg gum 2 mg buccal Q2H PRN Nicotine 07/13/24 Cravings 30 days #120 ea doxycycline hyclate 100 mg tablet 100 mg PO BID #20 tabs 11/28/24 Allergies Allergy/AdvReac Type Severity Reaction Status Date / Time amoxicillin Allergy Anaphylaxis Verified 11/28/24 02:22 Penicillins Allergy Unknown Verified 11/28/24 02:22 Review of Systems Review of Systems: Yes all other systems are reviewed and are negative [facility] Past Medical History Medical History Heart palpitations IVDU (intravenous drug user) Social History Social History Household Members: None Housing: Homeless Do you presently have visiting nurse or other home services: No Alcohol intake: never Patient Tobacco Use Status: Never used Tobacco Tobacco use type: Cigarette e-Cigarette/Vaping Use: Currently Using Second Hand Smoke Exposure: No Substance Use Type: Crack/Cocaine Advance Directives: No Advance Directives Information Provided: No service: No Current occupational status: unemployed Sexual orientation: Straight/Heterosexual Physical Exam Vital Signs: Vital Signs: Last Vital Signs Temp 98.0 F 11/28/24 03:08 Pulse 83 11/28/24 03:08 Resp 16 11/28/24 03:08 BP 135/75 11/28/24 03:08 Pulse Ox 97 11/28/24 03:08 O2 Del Method Room Air 11/28/24 03:08 BMI result Body Mass Index 23.9 Appearance: Alert. Oriented X3. No acute distress. ENT: Pharynx normal. Oral Mucosa moist Neck: Normal inspection. Neck supple. CVS: Normal heart rate and rhythm. Pulses normal. Respiratory: No respiratory distress. Equal air entry bilateral, no wheezing/rales/rhonchi Skin: Skin warm and dry. Normal skin color. Normal skin turgor. Extremities: No lower extremity edema. MRSA lesions on both eyes with surrounding erythema no abscess Neuro: Oriented X 3. Medications Administered Discontinued Medications Generic Name Dose Route Start Last Admin Trade Name Freq PRN Reason Stop Dose Admin Doxycycline Monohydrate 100 mg 11/28/24 02:50 11/28/24 02:58 Doxycycline Monohydrate 100 Mg Capsule PO 11/28/24 02:51 100 mg ONCE ONE Administration Medical Decision Making Medical Decision Making MDM Narrative: Patient clinically MRSA lesions on bilateral thigh no abscess noticed will prescribe doxycycline Discharge Plan Discharge Clinical Impression: MRSA infection Patient Disposition: Home, Self-Care Instructions: MRSA (Methicillin-Resistant Staphylococcus Aureus) (ED) Additional Instructions: Take antibiotic as advised Likely have MRSA infection Prescriptions: New doxycycline hyclate 100 mg tablet 100 mg PO BID Qty: 20 0RF No Action methadone [Methadone Intensol] 10 mg/mL Concentrate 115 mg PO DAILY nicotine (polacrilex) 2 mg Gum 2 mg buccal Q2H PRN (Reason: Nicotine Cravings) 30 Days Qty: 120 1RF doxycycline monohydrate 100 mg Capsule 100 mg PO BID 15 Days Qty: 30 0RF albuterol sulfate [Ventolin HFA] 90 mcg/actuation Hfa Aerosol Inhaler 2 puff inhalation RQ4H PRN (Reason: Bronchospasm) 30 Days Qty: 1 0RF gabapentin 300 mg Capsule 600 mg PO TID 30 Days Qty: 180 0RF Anbesol (benzocaine) Max Str 20 % Gel 1 appl mucous membrane TID PRN (Reason: mouth pain) 30 Days Qty: 9 0RF Protocol: Apply to: Apply to: affected area Vraylar 1.5 mg Capsule 1.5 mg PO DAILY 30 Days Qty: 30 0RF atorvastatin 40 mg Tablet 40 mg PO DAILY 30 Days Qty: 30 0RF aspirin 81 mg tablet,delayed release (DR/EC) 81 mg PO DAILY 30 Days Qty: 30 0RF hydroxyzine HCl 25 mg Tablet 25 mg PO BID PRN (Reason: Anxiety) 30 Days Qty: 60 0RF Rx Instructions: take 1 to 2 tablets by mouth twice a day as needed for anxiety ibuprofen 600 mg Tablet 600 mg PO TID PRN (Reason: Pain (Scale Score 4-6)) 30 Days Qty: 90 0RF cholecalciferol (vitamin D3) [Vitamin D3] 25 mcg (1,000 unit) Tablet 50 mcg PO DAILY 30 Days Qty: 60 0RF melatonin 5 mg Tablet 5 mg PO BEDTIME PRN (Reason: Insomnia) 30 Days Qty: 30 0RF naloxone [Narcan] 4 mg/actuation spray,non-aerosol 4 mg intranasal Q2M PRN (Reason: opioid overdose) 1 Days Qty: 2 0RF Rx Instructions: spray 1 dose into ONE nostril; alternate nostrils w each dose until help arrives Interventions: ED Discharge Assessment Last Done: 11/28/24 03:08 Discharge Date/Time: 11/28/24 03:09 Print Language: Bulgarian
[2024-11-28] MEDS: Doxycycline Monohydrate 100 MG CAPSULE PO (02:58)
[2024-11-28 03:04] VITALS: BP 135/75; PULSE 83; RESP 16; TEMP 36.7; O2SAT 97
[2024-11-28 03:08] VITALS: BP 135/75; PULSE 83; RESP 16; TEMP 36.7; O2SAT 97
== END 2024-11-28 03:09 | disposition home or self-care (01) ==
PROVIDERS: Emergency Provider Internal Medicine
DX: A49.02 Methicillin resistant Staphylococcus aureus infection, unspecified site (principal); F19.10 Other psychoactive substance abuse, uncomplicated
CPT/HCPCS: 99283

== ENCOUNTER 2024-12-25 12:40 | Emergency (ER) | payer MEDICARE, MEDICAID, SELFPAY ==
[2024-12-25 12:49] VITALS: BP 146/92; PULSE 104; O2SAT 98
[2024-12-25 13:00] VITALS: BP 134/78; PULSE 82; RESP 18; TEMP 35.8; O2SAT 96; BMI 21.3
--- NOTE | 2024-12-25 13:03 | PC.NURSE ---
MD at bedside, given sandwich, patient asking to leave. denies SI and HI
--- NOTE | 2024-12-25 13:04 | ED.GENADULT ---
HPI - General Adult General Chief complaint: Psychiatric Symptoms Stated complaint: ANXIETY,?AH PER EMS Time Seen by Provider: 12/25/24 13:01 History of Present Illness ED Provider: Dusty RILEY narrative: the patient is a 44-year-old male who came to the hospital by ambulance after having gone to a police station because he was feeling very anxious. He apparently mentioned auditory hallucinations. Here in the emergency room the patient regrets his decision to come to the hospital. He Says he has been off his psychiatric medications for some time. He says that he has previously had his psychiatric medication prescribed by the [facility]. After arriving at the hospital he found the hospital procedures for patient safety very intrusive and he did not wish to be subject to the variety of evaluations and searches which are part of our protocol. He then said that he did not want to stay in the hospital. he prefers to be discharged. he denies suicidality or homicidality. Related Data Home Medications ?Medication ?Instructions ?Recorded ?Confirmed methadone 10 mg/mL oral 115 mg PO DAILY 06/03/22 07/03/24 concentrate (Methadone Intensol) Previous Rx's ?Medication ?Instructions ?Recorded albuterol sulfate 90 mcg/actuation 2 puff inhalation RQ4H PRN 07/13/24 aerosol inhaler (Ventolin HFA) Bronchospasm 30 days #1 inhaler aspirin 81 mg tablet,delayed 81 mg PO DAILY 30 days #30 tabs 07/13/24 release atorvastatin 40 mg tablet 40 mg PO DAILY 30 days #30 tabs 07/13/24 benzocaine 20 % mucosal gel 1 appl mucous membrane TID PRN 07/13/24 (Anbesol (benzocaine) Maximum mouth pain 30 days #9 grams Strength) cariprazine 1.5 mg capsule 1.5 mg PO DAILY 30 days #30 caps 07/13/24 (Vraylar) cholecalciferol (vitamin D3) 25 50 mcg (2 x 25 mcg (1,000 unit)) 07/13/24 mcg (1,000 unit) tablet (Vitamin PO DAILY 30 days #60 tabs D3) doxycycline monohydrate 100 mg 100 mg PO BID 15 days #30 caps 07/13/24 capsule gabapentin 300 mg capsule 600 mg (2 x 300 mg) PO TID 30 days 07/13/24 #180 caps hydroxyzine HCl 25 mg tablet 25 mg PO BID PRN Anxiety 30 days 07/13/24 #60 tabs ibuprofen 600 mg tablet 600 mg PO TID PRN Pain (Scale 07/13/24 Score 4-6) 30 days #90 tabs melatonin 5 mg tablet 5 mg PO BEDTIME PRN Insomnia 30 07/13/24 days #30 tabs naloxone 4 mg/actuation nasal 4 mg intranasal Q2M PRN opioid 07/13/24 spray (Narcan) overdose 1 day #2 ea nicotine (polacrilex) 2 mg gum 2 mg buccal Q2H PRN Nicotine 07/13/24 Cravings 30 days #120 ea doxycycline hyclate 100 mg tablet 100 mg PO BID #20 tabs 11/28/24 Allergies Allergy/AdvReac Type Severity Reaction Status Date / Time amoxicillin Allergy Anaphylaxis Verified 12/25/24 13:02 Penicillins Allergy Unknown Verified 12/25/24 13:02 Review of Systems Review of Systems: Yes all other systems are reviewed and are negative [facility] Past Medical History Medical History Heart palpitations IVDU (intravenous drug user) Social History Social History Household Members: None Housing: Homeless Do you presently have visiting nurse or other home services: No Alcohol intake: never Patient Tobacco Use Status: Never used Tobacco Tobacco use type: Cigarette e-Cigarette/Vaping Use: Currently Using Second Hand Smoke Exposure: No Substance Use Type: Crack/Cocaine Advance Directives: No Advance Directives Information Provided: Yes service: No Current occupational status: unemployed Sexual orientation: Straight/Heterosexual Physical Exam ED Vital Signs: Vital Signs - 24 hr 12/25/24 13:00 Temperature 96.4 F L Pulse Rate 82 Respiratory Rate 18 Blood Pressure 134/78 Pulse Oximetry 96 Oxygen Delivery Method Room Air BMI result Body Mass Index 21.3 Const Other: The patient is awake and alert. He is a slim 44-year-old male. He seems coherent and well oriented. He does not seem in obvious distress. HENMT Other: Face is symmetrical. Mucous membranes moist Eyes General: appearance normal, both eyes and all related structures Neck Neck: Yes full ROM Resp Effort & Inspection: normal respiratory effort Auscultation: clear to auscultation bilaterally Cardio Rate: regular rate Rhythm: regular rhythm Heart sounds: S1 normal heart sound present and S2 normal heart sound present GI Other: Abdomen is soft and nontender Neuro Other: the patient is awake and alert. He is oriented and appropriate. Mental status seems clear. Cranial nerves are grossly intact. He moves all extremities normally. He has a steady gait. Extrem Other: No deformities to the extremities. No peripheral edema. Medical Decision Making Medical Decision Making [facility] Narrative: The patient is a 44-year-old male who came to the hospital by ambulance from police department. He had presented to the police department claiming that he was having anxiety and was having auditory hallucinations. An ambulance was called and he was brought here. Soon after arriving he realized that he did not wish to be here. He does not want to comply with all the safety protocols for psychiatric patients. He says he would prefer to leave. He denies any suicidal thoughts. He is requesting a sandwich. He says that he has been off his medications for some time. He says that he has previously received medications through the behavioral health [facility]. He is encouraged to contact the [facility] to try to get services restored. Discharge Plan Discharge Clinical Impression: Anxiety Patient Disposition: Home, Self-Care Additional Instructions: Please try to follow up with N to try to get back on your medications. There is contact information for the behavioral health network on these discharge instructions. Another option might be to reach out to the [address] [phone] If you are feeling at all depressed or suicidal please be aware the National Suicide and Crisis Lifeline can be reached 7 days a week 24 hours a day.? you can reach this hotline by callingl 568 to speak with someone.? Return for any worsening symptoms or concerns such as thoughts of self harm or harm to others. Please call 911 if you feel your mental health is worsening.? Prescriptions: No Action methadone [Methadone Intensol] 10 mg/mL Concentrate 115 mg PO DAILY nicotine (polacrilex) 2 mg Gum 2 mg buccal Q2H PRN (Reason: Nicotine Cravings) 30 Days Qty: 120 1RF doxycycline monohydrate 100 mg Capsule 100 mg PO BID 15 Days Qty: 30 0RF albuterol sulfate [Ventolin HFA] 90 mcg/actuation Hfa Aerosol Inhaler 2 puff inhalation RQ4H PRN (Reason: Bronchospasm) 30 Days Qty: 1 0RF gabapentin 300 mg Capsule 600 mg PO TID 30 Days Qty: 180 0RF Anbesol (benzocaine) Max Str 20 % Gel 1 appl mucous membrane TID PRN (Reason: mouth pain) 30 Days Qty: 9 0RF Protocol: Apply to: Apply to: affected area Vraylar 1.5 mg Capsule 1.5 mg PO DAILY 30 Days Qty: 30 0RF atorvastatin 40 mg Tablet 40 mg PO DAILY 30 Days Qty: 30 0RF aspirin 81 mg tablet,delayed release (DR/EC) 81 mg PO DAILY 30 Days Qty: 30 0RF hydroxyzine HCl 25 mg Tablet 25 mg PO BID PRN (Reason: Anxiety) 30 Days Qty: 60 0RF Rx Instructions: take 1 to 2 tablets by mouth twice a day as needed for anxiety ibuprofen 600 mg Tablet 600 mg PO TID PRN (Reason: Pain (Scale Score 4-6)) 30 Days Qty: 90 0RF cholecalciferol (vitamin D3) [Vitamin D3] 25 mcg (1,000 unit) Tablet 50 mcg PO DAILY 30 Days Qty: 60 0RF melatonin 5 mg Tablet 5 mg PO BEDTIME PRN (Reason: Insomnia) 30 Days Qty: 30 0RF naloxone [Narcan] 4 mg/actuation spray,non-aerosol 4 mg intranasal Q2M PRN (Reason: opioid overdose) 1 Days Qty: 2 0RF Rx Instructions: spray 1 dose into ONE nostril; alternate nostrils w each dose until help arrives doxycycline hyclate 100 mg tablet 100 mg PO BID Qty: 20 0RF [facility]errals: [facility] [Provider Group] (anxiety) Interventions: [place]-Suicide Risk Severity Scale Last Done: 12/25/24 13:41 ED Discharge Assessment Last Done: 12/25/24 13:41 Discharge Date/Time: 12/25/24 13:42 Print Language: Romanian
[2024-12-25 13:41] VITALS: BP 134/78; PULSE 82; RESP 18; TEMP 35.8; O2SAT 96
--- OUTSIDE RECORDS SUMMARY | 2024-12-25 15:14 | XMS_ITS | Clinical Summary ---
Author Organization [facility] Address [address] [place] [address] Phone Care Team Providers Care Channel Lip Wetter Name Role Phone Unavailable Primary Care Provider Unavailabl e Social History Tobacco Use Types Packs/Day Years Used Date Smoking Tobacco: Never Assessed Sex and Gender Information Value Date Recorded Sex Assigned at Not on file Legal Sex Male 8:25 AM EDT Gender Identity Not on file Sexual Orientation Not on file Plan of Treatment Health Maintenance Due Date Last Done Comments Pneumococcal Vaccine: Pediat rics (0 to 5 Years) and At-Risk Patients (6 to 64 Years) (1 of 2 - PCV) 1987 Hepatitis B Vaccine (1 of 3 - 19+ 3-dose series) 11/10 Influenza Vaccine (#1) 2024 [place]
--- OUTSIDE RECORDS SUMMARY | 2024-12-25 15:14 | XMS_ITS | Patient Health Record ---
Author Organization [facility] Address [address], [place] [phone] Care Team Providers Care Electrical Controls Designer Name Role Phone [facility] Primary Care Provider Nellie Lynch Unavailable [place] Unavailable [phone] Allergies Allergen (clinical drug ingredient) Drug/Non Drug [...] W/U Status Risk Notes Problem Viral wart (47616003) Viral wart, unspecified (B07.9) Active confirmed Problem Tobacco user (931972768) Nicotine dependence, cigarettes, uncomplicated (F17.210) Active confirmed Problem Psychoactive substance dependence (4129442) Other psychoactive substance dependence, uncomplicated (F19.20) Active confirmed Methadone : 70mg [place], [place] Problem Anxiety disorder (922977788) Anxiety disorder, unspecified (F41.9) Active confirmed Problem Somatoform disorder (14586886) Somatoform disorder, 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) Active confirmed Problem Attention deficit hyperactivity disorder (638055935) Attention-defici t hyperactivity disorder, unspecified type (F90.9) Active confirmed Problem Palpitations (71719991) Palpitations (R00.2) Active confirmed Encounters Encounter Location Date Provider Diagnosis [facility] [address] [place] [address] [phone] 03/19/2024 [place] [facility] [address] [place] [address] [id number] 03/31/2024 [place] Plan Of Treatment Pending Test Test Name Order Date EKG 02/11/2017 Insurance Providers Payer Name Payer Address Payer Phone Subscriber Number Group Number Insured Name Patient Relationship to Insured Coverage Start Date Coverage End Date [place] Medicare Part A [employer] [address] [facility] [place] [address] [id number] Tavo Espinoza Self - patient is the insured 1 [place] Medicaid Standard [address] [place] [address] [phone] [id number] Tavo Espinoza Self - patient is the insured Medical (General) History Medical History History ICD Code pt reports ADHD, Anxiety, Ex plosive P. Disorder, Depression. + Insomnia: tosses and turns at night tobacco use Opioid and Cocaine use, ETOH abuse + hx TBI Palpitations Surgical History Surgery Date(Month/Year) tonsils removed as child Hospitalization History Reason Date(Month/Year) [facility]: facial laceration 10/03/13 [facility] : palpitations: EKG Sinus bradyca rdia 02/16/17
--- OUTSIDE RECORDS SUMMARY | 2024-12-25 15:14 | XMS_ITS ---
Author Organization [facility] Address [address] [place] [phone] Care Team Providers Care Chemic Mangler Name Role Phone [place] [facility] Primary Care Provider Nellie Lynch Unavailable [place] Unavailable [phone] Encounters Encounter Location Date Provider Diagnosis [facility] [address] [place] [address] [phone] 03/19/2024 [place] Plan Of Treatment No Information Progress Notes * Tavo ESPINOZADOB:1980 (43 yo M)Acc No.[id number]:03/19/2024 Case Management Patient:?Tavo Espinoza Provider:Alisia Kruger :1980???Age:43 Y???Sex:Male Mejia e:03/19/2024 Address:[address], [place], [place] Pcp:Group Aniya Rick Subjective: * Chief Complaints: [...] help contacting his DTA worker: Ms. Gillis @[phone], client having a difficult time communicating with [...] Provider:?Bao Kruger Date:?03/19/2024 Generated for Mark garcia/Maulik/eTdayanasmitting on:?12/25/2024 03:13 PM EST
--- OUTSIDE RECORDS SUMMARY | 2024-12-25 15:14 | XMS_ITS ---
Author Organization [facility] Address [address] [place] [phone] Care Team Providers Care Surgical Elastic Knitter Hand Frame Name Role Phone [facility] Primary Care Provider Nellie Lynch Unavailable [place] Unavailable [phone] Encounters Encounter Location Date Provider Diagnosis [facility] [address] [place] [address] [phone] 03/31/2024 [place] Plan Of Treatment No Information Progress Notes * Tavo ESPINOZADOB:1980 (43 yo M)Acc No.[id number]:03/31/2024 Case Management Patient:?Tavo Espinoza Provider:?Bao Kruger :1980???Age:43 Y???Sex:Male Mejia e:03/31/2024 Address:[address], [place], [place] Pcp:Group Aniya Rick Subjective: * Chief Complaints: [...] he states. ?I am providing client with [facility] for emergency housing for parents with children, also calling [facility] to locate 15 year old daughter that had ?been removed from the mother three years ago. Client wants to be involved in his childrens lives. * Medical History:? Objective: Assessment: Plan: * Treatment: * Images: Billing Information: * Visit Code:? * Procedure Codes:? Care Plan Details* * Sign off status: Completed true * Provider:Alisia Kruger Date:?03/31/2024 Generated for Mark garcia/Maulik/Brionnasmantonella on:?12/25/2024 03:13 PM EST
--- OUTSIDE RECORDS SUMMARY | 2024-12-25 15:14 | XMS_ITS ---
Author Organization [facility] Address [address] [place] [phone] Care Team Providers Care Group Exercise Instructor Name Role Phone [facility] Primary Care Provider Nellie Lynch [phone] Encounters Encounter Location Date Provider Diagnosis [facility] [address] [place] [address] [phone] 05/07/2024 Nellie Parmar Plan Of Treatment No Information Progress Notes * OLGATavoDOB:1980 (44 yo M)Acc No.[id number]:05/07/2024 Case Management Patient:?Tavo ESPINOZA Provider:?Nellie Pamrar :1980???Age:43 Y???Sex:Male Mejia e:05/07/2024 Address:[address], [place] Pcp:Group Aniya Rick Subjective: * Chief Complaints: * ??? * HPI: ???Social Service:? 05/07/2024 Tried contacting the client, telephone number on file is NIS: Not In Service tried contacting the emergency contact left a short brief message on [employer], to contact me at earliest convenience. * Medical History:? Objective: Assessment: Plan: * Treatment: * Images: Billing Information: * Visit Code:? * Procedure Codes:? Care Plan Details* * Electronic signature of Harris Parmar on 12/25/2024 at 03:13 PM EST Sign off status: Pending * Provider:?Nellie Parmar Date:? Generated for Mark garcia/Maulik/Ct on:?12/25/2024 03:13 PM EST
== END 2024-12-25 13:42 | disposition home or self-care (01) ==
LOC: HO.ED 13:11
PROVIDERS: Emergency Provider Emergency Medicine
DX: F41.9 Anxiety disorder, unspecified (principal); R44.0 Auditory hallucinations; F11.90 Opioid use, unspecified, uncomplicated; F17.210 Nicotine dependence, cigarettes, uncomplicated; Z79.899 Other long term (current) drug therapy
CPT/HCPCS: 99282; 99283

== ENCOUNTER 2024-12-28 18:23 | Emergency (ER) | payer MEDICARE, MEDICAID, SELFPAY ==
[2024-12-28 18:29] VITALS: BP 188/94; PULSE 106; O2SAT 94
--- OUTSIDE RECORDS SUMMARY | 2024-12-28 20:49 | XMS_ITS | Patient Health Record ---
Author Organization [facility] Address [address] [place], [place] [phone] Care Team Providers Care Manager Quantitative Name Role Phone [facility] Primary Care Provider Nellie Lynch Unavailable [place] Unavailable [phone] Allergies Allergen (clinical drug ingredient) Drug/Non Drug [...] W/U Status Risk Notes Problem Viral wart (61238549) Viral wart, unspecified (B07.9) Active confirmed Problem Tobacco user (895212478) Nicotine dependence, cigarettes, uncomplicated (F17.210) Active confirmed Problem Psychoactive substance dependence (3777105) Other psychoactive substance dependence, uncomplicated (F19.20) Active confirmed Methadone : 70mg [place], [place] Problem Anxiety disorder (186271085) Anxiety disorder, unspecified (F41.9) Active confirmed Problem Somatoform disorder (93185690) Somatoform disorder, 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) Active confirmed Problem Attention deficit hyperactivity disorder (551779937) Attention-defici t hyperactivity disorder, unspecified type (F90.9) Active confirmed Problem Palpitations (31252687) Palpitations (R00.2) Active confirmed Encounters Encounter Location Date Provider Diagnosis [facility] [address] [place] [phone] 03/19/2024 [place] [facility] [address] [place] [address] [phone] 03/31/2024 [place] Plan Of Treatment Pending Test Test Name Order Date EKG 02/11/2017 Insurance Providers Payer Name Payer Address Payer Phone Subscriber Number Group Number Insured Name Patient Relationship to Insured Coverage Start Date Coverage End Date [place] Medicare Part [place] [employer] [address] [facility] [place] [address] [id number] Tavo Espinoza Self - patient is the insured 1 [place] Medicaid Standard [address] [place] [address] [phone] [id number] Tavo Espinoza Self - patient is the insured Medical (General) History Medical History History ICD Code pt reports ADHD, Anxiety, Ex plosive P. Disorder, Depression. + Insomnia: tosses and turns at night tobacco use Opioid and Cocaine use, ETOH abuse + hx TBI Palpitations Surgical History Surgery Date(Month/Year) tonsils removed as child Hospitalization History Reason Date(Month/Year) [facility]: facial laceration 10/03/13 [facility] : palpitations: EKG Sinus bradyca rdia 02/16/17
--- OUTSIDE RECORDS SUMMARY | 2024-12-28 20:49 | XMS_ITS | Clinical Summary ---
Author Organization [facility] Address [address] [place] [address] Phone Care Team Providers Care Supervisor Stitching Department Name Role Phone Unavailable Primary Care Provider [...]
--- OUTSIDE RECORDS SUMMARY | 2024-12-28 20:49 | XMS_ITS ---
Author Organization [facility] Address [address] [place] [phone] Care Team Providers Care [employer] Name Role Phone [place] Prabhjot [facility] Primary Care Provider Nellie Lynch Unavailable [phone] [place] Unavailable [phone] Encounters Encounter Location Date Provider Diagnosis [facility] [address] [place] [phone] 03/19/2024 [place] Plan Of Treatment No Information Progress Notes * Tavo ESPINOZADOB:1980 (43 yo M)Acc No.[id number]:03/19/2024 Case Management Patient:?Tavo Espinoza Provider:Alisia Kruger :1980???Age:43 Y???Sex:Male Mejia e:03/19/2024 Address:[address], [place], [place] Pcp:Group Aniya Rick Subjective: * Chief Complaints: [...] help contacting his DTA worker: Ms. Gillis @[phone], client having a difficult time communicating with [...] Provider:?Bao Kruger Date:?03/19/2024 Generated for Mark garcia/Maulik/eTdayanasmitting on:?12/28/2024 08:48 PM EST
--- OUTSIDE RECORDS SUMMARY | 2024-12-28 20:49 | XMS_ITS ---
Author Organization [facility] Address [address] [place] [address] [phone] Care Team Providers Care Client Technical Specialist Name Role Phone Aniya [employer] Prabhjot Primary Care Provider Nellie Lynch Unavailable [phone] [place] Unavailable [phone] Encounters Encounter Location Date Provider Diagnosis [facility] [address] [place] [address] [phone] 03/31/2024 [place] Plan Of Treatment No Information Progress Notes * Tavo ESPINOZADOB:1980 (43 yo M)Acc No.[id number]:03/31/2024 Case Management Patient:?Tavo Espinoza Provider:?Bao Kruger :1980???Age:43 Y???Sex:Male Mejia e:03/31/2024 Address:[address], [place], [place] Pcp:Group Aniya Rick Subjective: * Chief Complaints: [...] he states. ?I am providing client with [facility] for emergency housing for parents with children, also calling [facility] to locate 15 year old daughter that had ?been removed from the mother three years ago. Client wants to be involved in his childrens lives. * Medical History:? Objective: Assessment: Plan: * Treatment: * Images: Billing Information: * Visit Code:? * Procedure Codes:? Care Plan Details* * Sign off status: Completed true * Provider:Alisia Kruger Date:?03/31/2024 Generated for Mark garcia/Maulik/eTdayanasmitting on:?12/28/2024 08:49 PM EST
== END 2024-12-28 21:04 | disposition left against medical advice (07) ==
LOC: HO.ED 20:47
PROVIDERS: Emergency Provider Emergency Medicine
DX: L98.9 Disorder of the skin and subcutaneous tissue, unspecified (principal)

== ENCOUNTER 2024-12-31 22:12 | Emergency (ER) | payer MEDICARE, MEDICAID, SELFPAY ==
[2024-12-31 22:30] VITALS: BP 132/74; PULSE 70; RESP 14; TEMP 36.7; O2SAT 98; BMI 21.9
--- OUTSIDE RECORDS SUMMARY | 2024-12-31 22:52 | XMS_ITS ---
Author Organization [facility] Address [address] [place] [phone] Care Team Providers Care Burglar Alarm Inspector Name Role Phone [place] Prabhjot [facility] Primary Care Provider Nellie Lynch Unavailable [place] Unavailable [phone] Encounters Encounter Location Date Provider Diagnosis [facility] [address] [place] [phone] 03/19/2024 [place] Plan Of Treatment No Information Progress Notes * Tavo ESPINOZADOB:1980 (43 yo M)Acc No.[id number]:03/19/2024 Case Management Patient:?Tavo Espinoza Provider:Alisia Kruger :1980???Age:43 Y???Sex:Male Mejia e:03/19/2024 Address:[address], [place], [place] Pcp:Group Aniya Rick Subjective: * Chief Complaints: [...] help contacting his DTA worker: Ms. Gillis @[phone], client having a difficult time communicating with [...] * Provider:?Bao Kruger Date:?03/19/2024 Generated for Mark garcia/Maulik/eTransmitting on:?12/31/2024 10:52 PM EST
--- OUTSIDE RECORDS SUMMARY | 2024-12-31 22:52 | XMS_ITS | Clinical Summary ---
Author Organization [facility] Address [address] [place] [address] Phone Care Team Providers Care Kelp Or Seagrass Gatherer Name Role Phone Unavailable Primary Care Provider [...]
--- OUTSIDE RECORDS SUMMARY | 2024-12-31 22:52 | XMS_ITS ---
Author Organization [facility] Address [address] [place] [phone] Care Team Providers Care Dairy Nutritionist Name Role Phone [employer] Prabhjot Primary Care Provider Nellie Lynch Unavailable [place] Unavailable [phone] Encounters Encounter Location Date Provider Diagnosis [facility] [address] [place] [phone] 03/31/2024 [place] Plan Of Treatment No Information Progress Notes * Tavo ESPINOZADOB:1980 (43 yo M)Acc No.[id number]:03/31/2024 Case Management Patient:?Tavo Espinoza Provider:?Bao Kruger :1980???Age:43 Y???Sex:Male Mejia e:03/31/2024 Address:[address], [place] Pcp:Group Aniya Rick Subjective: * Chief Complaints: [...] he states. ?I am providing client with [facility] for emergency housing for parents with children, also calling [facility] to locate 15 year old daughter that had ?been removed from the mother three years ago. Client wants to be involved in his childrens lives. * Medical History:? Objective: Assessment: Plan: * Treatment: * Images: Billing Information: * Visit Code:? * Procedure Codes:? Care Plan Details* * Sign off status: Completed true * Provider:Alisia Kruger Date:?03/31/2024 Generated for Mark garcia/Maulik/eTdayanasmitting on:?12/31/2024 10:52 PM EST
--- OUTSIDE RECORDS SUMMARY | 2024-12-31 22:52 | XMS_ITS ---
Author Organization [facility] Address [address] [place] [phone] Care Team Providers Care Adult Manager Name Role Phone Aniya [employer] Prabhjot Primary Care Provider Nellie Lynch Encounters Encounter Location Date Provider Diagnosis [facility] [address] [place] [address] [phone] 05/07/2024 Nellie Parmar Plan Of Treatment No Information Progress Notes * OLGATavoDOB:1980 (44 yo M)Acc No.[id number]:05/07/2024 Case Management Patient:?Tavo ESPINOZA Provider:?Nellie Parmar :1980???Age:43 Y???Sex:Male Mejia e:05/07/2024 Address:[address], [place], [place] Pcp:Group Aniya Rick Subjective: * Chief Complaints: * ??? * HPI: ???Social Service:? 05/07/2024 Tried contacting the client, telephone number on file is NIS: Not In Service tried contacting the emergency contact left a short brief message on [employer], to contact me at earliest convenience. * Medical History:? Objective: Assessment: Plan: * Treatment: * Images: Billing Information: * Visit Code:? * Procedure Codes:? Care Plan Details* * Electronic signature of Harris Parmar on 12/31/2024 at 10:52 PM EST Sign off status: Pending * Provider:?Nellie Parmar Date:? Generated for Mark garcia/Maulik/Ct on:?12/31/2024 10:52 PM EST
[2024-12-31 22:53] LABS: Hemoglobin 12.7 g/dl (14.0-18.0); Mean Corpuscular HGB Conc 34.3 g/dl (31.0-36.0); Mean Corpuscular Hemoglobin 29.3 pg (27.0-33.0); Mean Corpuscular Volume 85.5 fL (80.0-98.0); Mean Platelet Volume 9.8 fL (9.4-12.4); Platelet Count 315 X10*3/uL (160-400); Red Blood Count 4.33 X10*6/uL (4.60-5.80); Red Cell Distribution Width 15.2 % (11.0-16.0); White Blood Count 9.7 X10*3/uL (4.8-10.8)
--- OUTSIDE RECORDS SUMMARY | 2024-12-31 22:53 | XMS_ITS | Patient Health Record ---
Author Organization [facility] Address [address] [place], [place] [phone] Care Team Providers Care Milking Machine Technician Name Role Phone [facility] Primary Care Provider Nellei Lynch Unavailable [phone] [place] Unavailable [phone] Allergies Allergen (clinical drug ingredient) Drug/Non Drug [...] W/U Status Risk Notes Problem Viral wart (26798309) Viral wart, unspecified (B07.9) Active confirmed Problem Tobacco user (720558423) Nicotine dependence, cigarettes, uncomplicated (F17.210) Active confirmed Problem Psychoactive substance dependence (5644017) Other psychoactive substance dependence, uncomplicated (F19.20) Active confirmed Methadone : 70mg [place], [place] Problem Anxiety disorder (267868538) Anxiety disorder, unspecified (F41.9) Active confirmed Problem Somatoform disorder (11447988) Somatoform disorder, 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) Active confirmed Problem Attention deficit hyperactivity disorder (050022472) Attention-defici t hyperactivity disorder, unspecified type (F90.9) Active confirmed Problem Palpitations (68291329) Palpitations (R00.2) Active confirmed Encounters Encounter Location Date Provider Diagnosis [facility] [address] [place] [phone] 03/19/2024 [place] [facility] [address] [place] [address] [phone] 03/31/2024 [place] Plan Of Treatment Pending Test Test Name Order Date EKG 02/11/2017 Insurance Providers Payer Name Payer Address Payer Phone Subscriber Number Group Number Insured Name Patient Relationship to Insured Coverage Start Date Coverage End Date [place] Medicare Part [place] [employer] [address] [place] [address] [id number] Tavo Espinoza Self - patient is the insured 1 [place] Medicaid Standard [address] [place] [address] [phone] [id number] Tavo Espinoza Self - patient is the insured Medical (General) History Medical History History ICD Code pt reports ADHD, Anxiety, Ex plosive P. Disorder, Depression. + Insomnia: tosses and turns at night tobacco use Opioid and Cocaine use, ETOH abuse + hx TBI Palpitations Surgical History Surgery Date(Month/Year) tonsils removed as child Hospitalization History Reason Date(Month/Year) [facility] ER: facial laceration 10/03/13 [facility] ER : palpitations: EKG Sinus bradyca rdia 02/16/17
[2024-12-31 23:07] LABS: Alanine Aminotransferase 147 U/L (0-40); Albumin Level 3.7 g/dL (3.5-5.0); Alkaline Phosphatase 121 U/L (39-117); Anion Gap 13 (12-20); Aspartate Amino Transferase 102 U/L (5-37); Bilirubin Total 0.4 mg/dL (0.0-1.0); Blood Urea Nitrogen 21 mg/dL (9-16); Calcium 8.9 mg/dL (8.4-10.2); Carbon Dioxide 26 mmol/L (22-29); Chloride 104 mmol/L (96-108); Creatinine Clr Calc Pharmacy 105.8; Estimated Glomerular Filt Rate > 60; Ethanol < 10 mg/dL; Glucose Random 97 mg/dL (60-115); Magnesium 1.8 mg/dL (1.6-2.6); Sodium 139 mmol/L (135-145); Total Protein 7.3 g/dL (6.5-8.0)
--- NOTE | 2024-12-31 23:11 | PC.NURSE ---
Patient observed by security on camera going into bathroom multiple times and last was in the bathroom for 20 minutes. Security requested to search patient d/t known substance history. Patient refused and opted to leave. Pt escorted out by security staff and LWBS.
[2024-12-31 23:29] LABS: Influenza A PCR NEGATIVE (Negative); Influenza B PCR NEGATIVE (Negative); Resp Syncy Virus RNA Qual PCR NEGATIVE (Negative); SARS COV2 PCR INHOUSE NEGATIVE (Negative)
== END 2024-12-31 23:10 | disposition left against medical advice (07) ==
PROVIDERS: Emergency Provider Emergency Medicine
DX: R53.83 Other fatigue (principal); R11.0 Nausea; Z51.81 Encounter for therapeutic drug level monitoring; Z03.818 Encounter for observation for suspected exposure to other biological agents ruled out
CPT/HCPCS: 0241U; 36415; 80053; 80307; 83735; 85027; 99281

== ENCOUNTER 2025-03-26 23:09 | Emergency (ER) | payer MEDICARE, MEDICAID, SELFPAY ==
--- NOTE | 2025-03-26 23:16 | PC.NURSE ---
Pt requesting to leave department immediately upon admission, Provider Jemran to speak with pt outside ED 1. Pt denies SI/HI. Alert and oriented x4. Out of department with steady gait and all personal belongings.
--- NOTE | 2025-03-26 23:26 | ED_ITS ---
HPI - General Adult General Stated complaint: ?dehydration, weakness, did heroine today Time Seen by Provider: 03/26/25 23:16 Source: patient, EMS and old records reviewed Mode of arrival: EMS Limitations: no limitations History of Present Illness ED Provider: RC HPI narrative: 44 yo male with PMH of substance abuse, hyponatremia, depression, rhabdo, here with c/o calling EMS at police custody because he reports weakness and worried he was dehydrated. He then states he doesn't want to be seen here due to prior interactions and security going through his stuff. I explained there is no reason for that and that he should stay here for treatment and labs. He tells me he has not overdosed, has no SI/HI and he wants to leave. He refuses to leave the registration desk. He is alert and oriented and states he is aware he can be treated but he states he is now going to [facility]. complaint: dehydration Onset (ago): unknown Severity: moderate Treatments prior to arrival: none Related Data Home Medications ?Medication ?Instructions ?Recorded ?Confirmed methadone 10 mg/mL oral 115 mg PO DAILY 06/03/22 07/03/24 concentrate (Methadone Intensol) Previous Rx's ?Medication ?Instructions ?Recorded albuterol sulfate 90 mcg/actuation 2 puff inhalation RQ4H PRN 07/13/24 aerosol inhaler (Ventolin HFA) Bronchospasm 30 days #1 inhaler aspirin 81 mg tablet,delayed 81 mg PO DAILY 30 days #30 tabs 07/13/24 release atorvastatin 40 mg tablet 40 mg PO DAILY 30 days #30 tabs 07/13/24 benzocaine 20 % mucosal gel 1 appl mucous membrane TID PRN 07/13/24 (Anbesol (benzocaine) Maximum mouth pain 30 days #9 grams Strength) cariprazine 1.5 mg capsule 1.5 mg PO DAILY 30 days #30 caps 07/13/24 (Vraylar) cholecalciferol (vitamin D3) 25 50 mcg (2 x 25 mcg (1,000 unit)) 07/13/24 mcg (1,000 unit) tablet (Vitamin PO DAILY 30 days #60 tabs D3) doxycycline monohydrate 100 mg 100 mg PO BID 15 days #30 caps 07/13/24 capsule gabapentin 300 mg capsule 600 mg (2 x 300 mg) PO TID 30 days 07/13/24 #180 caps hydroxyzine HCl 25 mg tablet 25 mg PO BID PRN Anxiety 30 days 07/13/24 #60 tabs ibuprofen 600 mg tablet 600 mg PO TID PRN Pain (Scale 07/13/24 Score 4-6) 30 days #90 tabs melatonin 5 mg tablet 5 mg PO BEDTIME PRN Insomnia 30 07/13/24 days #30 tabs naloxone 4 mg/actuation nasal 4 mg intranasal Q2M PRN opioid 07/13/24 spray (Narcan) overdose 1 day #2 ea nicotine (polacrilex) 2 mg gum 2 mg buccal Q2H PRN Nicotine 07/13/24 Cravings 30 days #120 ea doxycycline hyclate 100 mg tablet 100 mg PO BID #20 tabs 11/28/24 Allergies Allergy/AdvReac Type Severity Reaction Status Date / Time amoxicillin Allergy Anaphylaxis Verified 12/31/24 22:34 Penicillins Allergy Unknown Verified 12/31/24 22:34 Review of Systems Review of Systems: ROS unable to be obtained due to patient requesting to leave [facility] Past Medical History Attestation statement: The following information was validated with the patient. Source: old records reviewed Medical History Heart palpitations IVDU (intravenous drug user) Social History Social History Household Members: None Housing: Homeless Do you presently have visiting nurse or other home services: No Alcohol intake: never Patient Tobacco Use Status: Never used Tobacco Tobacco use type: Cigarette e-Cigarette/Vaping Use: Currently Using Second Hand Smoke Exposure: No Substance Use Type: Crack/Cocaine service: No Current occupational status: unemployed Sexual orientation: Straight/Heterosexual Physical Exam ED very limited ext exam due to patient in hallway Appearance: Alert. Oriented X3. No acute distress. Eyes: no abnormal color, EOM intact ENT: Pharynx normal. Neck: Normal inspection. CVS: skin is pink and warm appearing, normal color to his fingers Respiratory: No respiratory distress. Abdomen: no obvious trauma or distention Skin: Skin warm and dry. Normal skin color. Extremities: moves all extremities Neuro: Oriented X 3. No motor deficit. No sensory deficit. Medical Decision Making Medical Decision Making MDM Narrative: 44 yo male with PMH of substance abuse, hyponatremia, depression, rhabdo, here with c/o feeling weakness and dehydration but on arrival refused care. He refuses care on arrival despite me trying to get him to stay. He is alert and oriented x 3, no signs of ingestion or overdose, no trauma. He can be managed as outpatient. Differential Diagnosis Differential Diagnoses: The differential diagnosis associated with the presentation includes dehydration, anemia Independent Historian Clinical information obtained from an independent historian. History obtained from or confirmed by: EMS External Record Review External record reviewed: Outpatient record Discharge Plan Discharge Clinical Impression: Dehydration Patient Disposition: Left W/O Completing Treatment Prescriptions: No Action methadone [Methadone Intensol] 10 mg/mL Concentrate 115 mg PO DAILY nicotine (polacrilex) 2 mg Gum 2 mg buccal Q2H PRN (Reason: Nicotine Cravings) 30 Days Qty: 120 1RF doxycycline monohydrate 100 mg Capsule 100 mg PO BID 15 Days Qty: 30 0RF albuterol sulfate [Ventolin HFA] 90 mcg/actuation Hfa Aerosol Inhaler 2 puff inhalation RQ4H PRN (Reason: Bronchospasm) 30 Days Qty: 1 0RF gabapentin 300 mg Capsule 600 mg PO TID 30 Days Qty: 180 0RF Anbesol (benzocaine) Max Str 20 % Gel 1 appl mucous membrane TID PRN (Reason: mouth pain) 30 Days Qty: 9 0RF Protocol: Apply to: Apply to: affected area Vraylar 1.5 mg Capsule 1.5 mg PO DAILY 30 Days Qty: 30 0RF atorvastatin 40 mg Tablet 40 mg PO DAILY 30 Days Qty: 30 0RF aspirin 81 mg tablet,delayed release (DR/EC) 81 mg PO DAILY 30 Days Qty: 30 0RF hydroxyzine HCl 25 mg Tablet 25 mg PO BID PRN (Reason: Anxiety) 30 Days Qty: 60 0RF Rx Instructions: take 1 to 2 tablets by mouth twice a day as needed for anxiety ibuprofen 600 mg Tablet 600 mg PO TID PRN (Reason: Pain (Scale Score 4-6)) 30 Days Qty: 90 0RF cholecalciferol (vitamin D3) [Vitamin D3] 25 mcg (1,000 unit) Tablet 50 mcg PO DAILY 30 Days Qty: 60 0RF melatonin 5 mg Tablet 5 mg PO BEDTIME PRN (Reason: Insomnia) 30 Days Qty: 30 0RF naloxone [Narcan] 4 mg/actuation spray,non-aerosol 4 mg intranasal Q2M PRN (Reason: opioid overdose) 1 Days Qty: 2 0RF Rx Instructions: spray 1 dose into ONE nostril; alternate nostrils w each dose until help arrives doxycycline hyclate 100 mg tablet 100 mg PO BID Qty: 20 0RF Print Language: Estonian
== END 2025-03-27 01:15 | disposition left against medical advice (07) ==
LOC: HO.ED 03-27 00:50
PROVIDERS: Emergency Provider Emergency Medicine
DX: E86.0 Dehydration (principal); F19.10 Other psychoactive substance abuse, uncomplicated; F11.20 Opioid dependence, uncomplicated; F32.9 Major depressive disorder, single episode, unspecified; R53.1 Weakness; E87.1 Hypo-osmolality and hyponatremia; Z79.899 Other long term (current) drug therapy; Z79.82 Long term (current) use of aspirin; Z79.02 Long term (current) use of antithrombotics/antiplatelets

== ENCOUNTER 2025-04-14 16:33 | Emergency (ER) | payer MEDICARE, MEDICAID, SELFPAY ==
--- OUTSIDE RECORDS SUMMARY | 2024-05-07 05:45 | XMS_ITS ---
Author Organization [facility] Address [address] [place], [place] [phone] Care Team Providers Care Trauma Manager Name Role Phone Aniya Group Prabhjot Primary Care Provider Nellie Lynch Unavailable Encounters Encounter Location Date Provider Diagnosis [facility] [address] [place] [phone] 05/07/2024 Nellie Parmar Plan Of Treatment No Information Progress Notes * OLGATavoDOB:1980 (44 yo M)Acc No.[id number]:05/07/2024 Case Management Patient: Tavo PHOENIX Provider: Yessenia Parmar :1980 A ge:43 Y S ex:Male Date:05/07/2024 Address:[address], [place] Pcp:Group Aniya Rick Subjective: * Chief Complaints: [...] * Electronic signature of Harris Parmar on 04/14/2025 at 06:16 PM EDT Sign off status: Pending * Provider: Yessenia Parmar Date: 0 05/07/2024 Generated for Mark garcia/Maulik/Gabiitting on: 0 04/14/2025 06:16 PM EDT History and Physical Notes * HPI (History of Present Illness) Category Sub-Category Detail Notes Category Not es Social Service 05/07/2024 Tried contacting the client, telephone number on file is NIS: Not In Service tried contacting the emergency contact left a short brief message on Smarter Agent Mobileail, to contact me at earliest convenience.
--- NOTE | ~2025-04-14 | XR_ITS ---
CLINICAL HISTORY: od 1 view chest x-ray Comparison: None provided Findings: The lungs are clear. Normal size heart. No acute fracture. IMPRESSION: 1. No acute findings. This document has been electronically signed by: Johanna Lay MD on 04/14/2025 18:12:13
[2025-04-14 16:46] VITALS: BP 116/00; BP 124/71; PULSE 102; PULSE 71; RESP 18; TEMP 36.8; O2SAT 98; BMI 20.4
--- NOTE | 2025-04-14 16:49 | PC.NURSE ---
safety check performed by security upon arrival
[2025-04-14 16:59] VITALS: BP 124/71; PULSE 71; RESP 18; TEMP 36.8; O2SAT 98
--- NOTE | 2025-04-14 17:02 | ECG_ITS ---
Test Reason : overdose Blood Pressure : */* mmHG Vent. Rate : 65 BPM Atrial Rate : 65 BPM P-R Int : 118 ms QRS Dur : 86 ms QT Int : 414 ms P-R-T Axes : * 34 78 degrees QTcB Int : 430 ms Ectopic atrial rhythm Nonspecific T wave abnormality Abnormal ECG When compared with ECG of 03-Jul-2024 12:55, Ectopic atrial rhythm present Referred By: Tatiana Eubanks Electronically Signed By: Laurent Chu
--- NOTE | 2025-04-14 17:04 | ED_ITS ---
HPI - Overdose General Chief Complaint: Overdose Stated Complaint: drug use, bag of heroin Time Seen by Provider: 04/14/25 16:55 Source: patient, EMS and old records reviewed Mode of arrival: EMS Limitations: no limitations History of Present Illness ED Provider: DR. Eubanks HPI Narrative: 44-year-old male history of substance abuse, hyponatremia, depression, rhabdomyolysis, came in after found in the street semi conscious after using IV injection of a bag of heroin. Patient require no Narcan given by EMS, patient is diaphoretic, denies SI or HI, no hallucination. Patient complained of no chest pain or shortness of breath, no nausea, no vomiting. Patient is restless in the emergency department. Related Data Home Medications ?Medication ?Instructions ?Recorded ?Confirmed methadone 10 mg/mL oral 115 mg PO DAILY 06/03/2204/20 concentrate (Methadone Intensol) Previous Rx's ?Medication ?Instructions ?Recorded albuterol sulfate 90 mcg/actuation 2 puff inhalation R Q4H PRN 07/13/24 aerosol inhaler (Ventolin HFA) Bronchospasm 30 days #1 inhaler aspirin 81 mg tablet,delayed 81 mg PO DAILY 30 days #3 0 tabs 07/13/24 release atorvastatin 40 mg tablet 40 mg PO DAILY 30 days #30 t abs 07/13/24 benzocaine 20 % mucosal gel 1 appl mucous membrane TID PRN 07/13/24 (Anbesol (benzocaine) Maximum mouth pain 30 days #9 gr ams Strength) cariprazine 1.5 mg capsule 1.5 mg PO DAILY 30 days #30 caps 07/13/24 (Vraylar) cholecalciferol (vitamin D3) 25 50 mcg (2 x 25 mcg (1, 000 unit)) 07/13/24 mcg (1,000 unit) tablet (Vitamin PO DAILY 30 days #60 tabs D3) doxycycline monohydrate 100 mg 100 mg PO BID 15 days # 30 caps 07/13/24 capsule gabapentin 300 mg capsule 600 mg (2 x 300 mg) PO TID 3 0 days 07/13/24 #180 caps hydroxyzine HCl 25 mg tablet 25 mg PO BID PRN Anxiety 30 days 07/13/24 #60 tabs ibuprofen 600 mg tablet 600 mg PO TID PRN Pain (Scal e 07/13/24 Score 4-6) 30 days #90 tabs melatonin 5 mg tablet 5 mg PO BEDTIME PRN Insomnia 30 07/13/24 days #30 tabs naloxone 4 mg/actuation nasal 4 mg intranasal Q2M PRN opioid 07/13/24 spray (Narcan) overdose 1 day #2 ea nicotine (polacrilex) 2 mg gum 2 mg buccal Q2H PRN Mele otine 07/13/24 Cravings 30 days #120 ea doxycycline hyclate 100 mg tablet 100 mg PO BID #20 ta bs 11/28/24 Allergies Allergy/AdvReac Type Severity Reaction Status Date / Time amoxicillin Allergy Anaphylaxis Verified 04/14/25 16:49 Penicillins Allergy Unknown Verified 04/14/25 16:49 Review of Systems 2 Review of Systems: All other systems are reviewed and are negative Constitutional: Reports as per HPI and Reports no additional constitutional complaints Eyes: Reports as per HPI and Reports no additional eye complaints Reports system reviewed and no additional complaints, except as documented Cardiovascular: Reports as per HPI and Reports no additional cardiovascular complaints Respiratory: Reports as per HPI and Reports no additional respiratory complaints Gastrointestinal: Reports as per HPI and Reports no additional gastrointestinal complaints Genitourinary: Reports no additional female genitourinary complaints Musculoskeletal: Reports no additional musculoskeletal complaints Skin/Breast: Reports system reviewed and no additional complaints, except as docu Psychiatric: Reports no additional psychiatric complaints Endocrine: Reports no additional endocrine complaints Hematologic/Lymphatic: Reports no additional hematologic/lymphatic complaints Allergic/Immunologic: Reports no additional allergic/immunologic complaints Reports system reviewed and no additional complaints, except as documented and Reports Abnormal speech present [facility] Past Medical History Medical History Heart palpitations IVDU (intravenous drug user) Social History Social History Household Members: None Housing: Homeless Do you presently have visiting nurse or other home services: No Unable to assess alcohol history related to: Unknown Alcohol intake: never Patient Tobacco Use Status: Never used Tobacco Tobacco use type: Cigarette Smoked in Last 30 Days: No e-Cigarette/Vaping Use: Currently Using Second Hand Smoke Exposure: No Use of substances other than those prescribed or required for medical reasons: Yes Substance Use Type: Crack/Cocaine and Heroin Substance Use Frequency: Daily Advance Directives: No Advance Directives Information Provided: No Do you have a plan to hurt others: No Plan service: No Current occupational status: unemployed Sexual orientation: Straight/Heterosexual Physical Exam 2 Vital Signs: Vital Signs: Last Vital Signs Temp 98.1 F 04/14/25 19:05 Pulse 54 04/14/25 19:05 Resp 16 04/14/25 19:05 BP 125/82 04/14/25 19:05 Pulse Ox 100 04/14/25 19:05 O2 Del Method Room Air 04/14/25 19:05 BMI result Body Mass Index 20.4 Vital signs have been reviewed and appear to be correct. Blood pressure elevated. Heart rate normal. Respiratory rate normal. Temperature normal. Oxygen saturation normal. Appearance: Alert. Oriented X3. No acute distress. Head: Normal external exam. Normocephalic. Atraumatic. No Mcgarry signs noted. No raccoon eyes noted Eyes: PERRLA. EOMI. Conjunctiva and sclera normal. Eyelids normal. ENT: TM's Normal. Pharynx normal. Uvula midline. Moist mucous membranes. No trismus noted. No drooling noted. No muffled voice noted. Neck: Normal inspection. Neck supple. FROM. No adenopathy. Thyroid Normal. No meningeal signs. No neck mass noted. CVS: Normal heart rate and rhythm. Heart sound normal. No murmurs noted. Pulses normal throughout. Respiratory: No respiratory distress. Painless inspiration. Breath sounds normal. No wheezes/rales/rhonchi noted. Chest nontender. No accessory muscle usage noted or decreased air movement noted. Abdomen: Soft and nontender. Bowel sounds normal in all 4 quadrants. No distention noted. No organomegaly noted. No visible injury noted. Back: No CVA tenderness. Full range of motion noted. Skin: Skin warm and dry. Normal skin color. Normal skin turgor. No rashes/lesions/lacerations noted. Extremities: No lower extremity edema. Extremities exhibit normal range of motion. Extremities nontender. Neuro: Oriented X 3. Cranial nerve exam: II-XII are grossly intact No motor deficit. No sensory deficit. Reflexes normal. Course Reevaluation(s) Reevaluation #1: Patient now is more awake, admit to using heroin and cocaine today, patient do not want to wait for addiction medicine consultation patient stated that he is already on methadone, no chest pain, no EKG ischemic changes, negative troponin. No rhabdomyolysis. Will discharge the patient with Narcan to go. Time: 20:30 Medical Decision Making Differential Diagnosis Differential Diagnoses: The differential diagnosis associated with the presentation includes (Narcotic use, ACS, SI, HI, psychosis, rhabdomyolysis.) Admission/Observation Consideration of admission/observation: Escalation of care including admission/observation considered Lab Data [facility] Lab Attestation statement: I reviewed the patient's lab results. 04/14/25 17:23 04/14/25 17:23 Labs: Lab Results 04/14/25 Range/Units 17:23 WBC 10.3 (4.8-10.8) X10*3/uL RBC 4.15 L (4.60-5.80) X10*6/uL Hgb 12.5 L (14.0-18.0) g/dl Hct 39.0 L (42.0-52.0) % MCV 94.0 (80.0-98.0) fL MCH 30.1 (27.0-33.0) pg MCHC 32.1 (31.0-36.0) g/dl RDW 12.9 (11.0-16.0) % Plt Count 300 (160-400) X10*3/uL MPV 9.5 (9.4-12.4) fL Immature Gran % (Auto) 0.2 (0.0-0.4) % Neut % (Auto) 50.6 (45-73) % Lymph % (Auto) 37.3 (20-40) % [place] % (Auto) 7.1 (2-11) % Eos % (Auto) 3.9 (0-4) % Baso % (Auto) 0.9 (0-2) % Lymph # (Auto) 3.8 (1.2-4.9) X10*3/uL [place] # (Auto) 0.7 (0.1-1.2) X10*3/uL Eos # (Auto) 0.4 (0.0-0.4) X10*3/uL Baso # (Auto) 0.1 (0.0-0.2) X10*3/uL Abs Immat Gran (auto) 0.02 (0.00-0.03) X10*3/uL Absolute Neuts (auto) 5.2 (2.0-8.3) x10*3/uL Absolute Nucleated RBC 0.000 (0.0-0.012) X10*3/uL Nucleated RBC % (auto) 0.0 (0.0-0.2) /100WBC Sodium 143 (135-145) mmol/L Potassium 5.4 H D (3.3-5.1) mmol/L Chloride 107 (96-108) mmol/L Carbon Dioxide 31 H (22-29) mmol/L Anion Gap 10 L (12-20) BUN 16 (9-16) mg/dL Creatinine 0.93 (0.5-1.4) mg/dL Estim Creat Clear Calc 90.9 Estimated GFR > 60 Random Glucose 92 (60-115) mg/dL Calcium 9.4 (8.4-10.2) mg/dL Troponin I High Sens < 2.7 (<3.5-35.0) ng/L B-Natriuretic Peptide 55 (<100) pg/mL Independent Interpretation I performed an independent interpretation of an: EKG (Normal sinus rhythm at 65 beats per minutes, normal intervals, no ST-T changes.) and Plain X-Ray (Chest: No acute findings.) Radiology Impression Discussion of test interpretation with radiology: I have reviewed the radiologist's reading. Discharge Plan Discharge Clinical Impression: Accidental overdose Patient Disposition: Home, Self-Care Instructions: Adult Overdose (ED), Polysubstance Use Disorder (ED) Prescriptions: No Action methadone [Methadone Intensol] 10 mg/mL Concentrate 115 mg PO DAILY nicotine (polacrilex) 2 mg Gum 2 mg buccal Q2H PRN (Reason: Nicotine Cravings) 30 Days Qty: 120 1RF doxycycline monohydrate 100 mg Capsule 100 mg PO BID 15 Days Qty: 30 0RF albuterol sulfate [Ventolin HFA] 90 mcg/actuation Hfa Aerosol Inhaler 2 puff inhalation RQ4H PRN (Reason: Bronchospasm) 30 Days Qty: 1 0RF gabapentin 300 mg Capsule 600 mg PO TID 30 Days Qty: 180 0RF Anbesol (benzocaine) Max Str 20 % Gel 1 appl mucous membrane TID PRN (Reason: mouth pain) 30 Days Qty: 9 0RF Protocol: Apply to: Apply to: affected area Vraylar 1.5 mg Capsule 1.5 mg PO DAILY 30 Days Qty: 30 0RF atorvastatin 40 mg Tablet 40 mg PO DAILY 30 Days Qty: 30 0RF aspirin 81 mg tablet,delayed release (DR/EC) 81 mg PO DAILY 30 Days Qty: 30 0RF hydroxyzine HCl 25 mg Tablet 25 mg PO BID PRN (Reason: Anxiety) 30 Days Qty: 60 0RF Rx Instructions: take 1 to 2 tablets by mouth twice a day as needed for anxiety ibuprofen 600 mg Tablet 600 mg PO TID PRN (Reason: Pain (Scale Score 4-6)) 30 Days Qty: 90 0RF cholecalciferol (vitamin D3) [Vitamin D3] 25 mcg (1,000 unit) Tablet 50 mcg PO DAILY 30 Days Qty: 60 0RF melatonin 5 mg Tablet 5 mg PO BEDTIME PRN (Reason: Insomnia) 30 Days Qty: 30 0RF naloxone [Narcan] 4 mg/actuation spray,non-aerosol 4 mg intranasal Q2M PRN (Reason: opioid overdose) 1 Days Qty: 2 0RF Rx Instructions: spray 1 dose into ONE nostril; alternate nostrils w each dose until help arrives doxycycline hyclate 100 mg tablet 100 mg PO BID Qty: 20 0RF Print Language: Togolese
[2025-04-14 17:28] LABS: Basophils Absolute Auto 0.1 X10*3/uL (0.0-0.2); Basophils Percent Auto 0.9 % (0-2); Eosinophils Absolute Auto 0.4 X10*3/uL (0.0-0.4); Eosinophils Percent Auto 3.9 % (0-4); Hemoglobin 12.5 g/dl (14.0-18.0); Imm Gran Abs Auto 0.02 X10*3/uL (0.00-0.03); Imm Gran Pct Auto 0.2 % (0.0-0.4); Lymphocytes Absolute Auto 3.8 X10*3/uL (1.2-4.9); Lymphocytes Percent Auto 37.3 % (20-40); MANUAL DIFF FLAG NO; Mean Corpuscular HGB Conc 32.1 g/dl (31.0-36.0); Mean Corpuscular Hemoglobin 30.1 pg (27.0-33.0); Mean Platelet Volume 9.5 fL (9.4-12.4); Monocytes Absolute Auto 0.7 X10*3/uL (0.1-1.2); Monocytes Percent Auto 7.1 % (2-11); Neutrophils Absolute Auto 5.2 x10*3/uL (2.0-8.3); Neutrophils Percent Auto 50.6 % (45-73); Platelet Count 300 X10*3/uL (160-400); Red Blood Count 4.15 X10*6/uL (4.60-5.80); Red Cell Distribution Width 12.9 % (11.0-16.0); White Blood Count 10.3 X10*3/uL (4.8-10.8)
[2025-04-14 17:40] LABS: Anion Gap 10 (12-20); Blood Urea Nitrogen 16 mg/dL (9-16); Calcium 9.4 mg/dL (8.4-10.2); Carbon Dioxide 31 mmol/L (22-29); Chloride 107 mmol/L (96-108); Creatinine Clr Calc Pharmacy 90.9; Estimated Glomerular Filt Rate > 60; Glucose Random 92 mg/dL (60-115); Potassium 5.4 mmol/L (3.3-5.1); Sodium 143 mmol/L (135-145)
[2025-04-14 17:48] LABS: B Type Natriuretic Peptide 55 pg/mL (<100)
[2025-04-14 17:52] LABS: Troponin-I High Sensitivity < 2.7 ng/L (<3.5-35.0)
[2025-04-14 19:05] VITALS: BP 125/82; PULSE 54; RESP 16; TEMP 36.7; O2SAT 100
[2025-04-14] MEDS: Naloxone HCl Nasal TAKE HOME 4 MG SPRAY 8 MG NOSTRILALT (20:48)
[2025-04-14 20:55] VITALS: BP 118/75; PULSE 50; RESP 14; TEMP 36.6; O2SAT 100
== END 2025-04-14 20:57 | disposition home or self-care (01) ==
PROVIDERS: Emergency Provider Emergency Medicine
DX: T40.1X1A Poisoning by heroin, accidental (unintentional), initial encounter (principal); F19.10 Other psychoactive substance abuse, uncomplicated; Y92.410 Unspecified street and highway as the place of occurrence of the external cause; R45.1 Restlessness and agitation; F11.20 Opioid dependence, uncomplicated
CPT/HCPCS: 36415; 71045; 80048; 82550; 83880; 84484; 85025; 93005; 99285

== ENCOUNTER → 2025-04-14 17:02 | Outpatient (BNV) | payer MEDICARE, MEDICAID, SELFPAY | PROVIDERS: Emergency Provider Emergency Medicine; Visit Provider Internal Medicine Cardiovascular Disease | DX: I49.8 Other specified cardiac arrhythmias (principal) | CPT/HCPCS: 93010 ==

== ENCOUNTER → 2025-04-14 17:02 | Outpatient (BNV) | payer MEDICARE, MEDICAID, SELFPAY | PROVIDERS: Emergency Provider Emergency Medicine; Visit Provider Nuclear Medicine | DX: T40.1X1A Poisoning by heroin, accidental (unintentional), initial encounter (principal); F11.20 Opioid dependence, uncomplicated | CPT/HCPCS: 71045 ==

== ENCOUNTER 2025-04-17 15:48 | Emergency (ER) | payer MEDICARE, MEDICAID, SELFPAY ==
--- NOTE | 2025-04-17 15:54 | ED.OVERDOSE ---
HPI - Overdose General Stated Complaint: Heroine use Time Seen by Provider: 04/17/25 15:54 Source: patient and EMS Mode of arrival: EMS Limitations: no limitations History of Present Illness ED Provider: HPI Narrative: 44-year-old male admits to using a bag of heroin, PD found him sleeping, start her on WebMD he woke up but they also called paramedics they were patient to the ED, no Narcan was administered, patient states he has had no trauma, no headaches no chest pain no shortness of breath and would like to be discharged he is not interested in detox Related Data Home Medications ?Medication ?Instructions ?Recorded ?Confirmed methadone 10 mg/mL oral 115 mg PO DAILY 06/03/22 07/03/24 concentrate (Methadone Intensol) Previous Rx's ?Medication ?Instructions ?Recorded albuterol sulfate 90 mcg/actuation 2 puff inhalation RQ4H PRN 07/13/24 aerosol inhaler (Ventolin HFA) Bronchospasm 30 days #1 inhaler aspirin 81 mg tablet,delayed 81 mg PO DAILY 30 days #30 tabs 07/13/24 release atorvastatin 40 mg tablet 40 mg PO DAILY 30 days #30 tabs 07/13/24 benzocaine 20 % mucosal gel 1 appl mucous membrane TID PRN 07/13/24 (Anbesol (benzocaine) Maximum mouth pain 30 days #9 grams Strength) cariprazine 1.5 mg capsule 1.5 mg PO DAILY 30 days #30 caps 07/13/24 (Vraylar) cholecalciferol (vitamin D3) 25 50 mcg (2 x 25 mcg (1,000 unit)) 07/13/24 mcg (1,000 unit) tablet (Vitamin PO DAILY 30 days #60 tabs D3) doxycycline monohydrate 100 mg 100 mg PO BID 15 days #30 caps 07/13/24 capsule gabapentin 300 mg capsule 600 mg (2 x 300 mg) PO TID 30 days 07/13/24 #180 caps hydroxyzine HCl 25 mg tablet 25 mg PO BID PRN Anxiety 30 days 07/13/24 #60 tabs ibuprofen 600 mg tablet 600 mg PO TID PRN Pain (Scale 07/13/24 Score 4-6) 30 days #90 tabs melatonin 5 mg tablet 5 mg PO BEDTIME PRN Insomnia 30 07/13/24 days #30 tabs naloxone 4 mg/actuation nasal 4 mg intranasal Q2M PRN opioid 07/13/24 spray (Narcan) overdose 1 day #2 ea nicotine (polacrilex) 2 mg gum 2 mg buccal Q2H PRN Nicotine 07/13/24 Cravings 30 days #120 ea doxycycline hyclate 100 mg tablet 100 mg PO BID #20 tabs 11/28/24 Allergies Allergy/AdvReac Type Severity Reaction Status Date / Time amoxicillin Allergy Anaphylaxis Verified 04/17/25 15:57 Penicillins Allergy Unknown Verified 04/17/25 15:57 Review of Systems Constitutional: Constitutional: Reports as per HPI [facility] Past Medical History Medical History Heart palpitations IVDU (intravenous drug user) Social History Social History Household Members: None Housing: Homeless Do you presently have visiting nurse or other home services: No Unable to assess alcohol history related to: Unknown Alcohol intake: never Patient Tobacco Use Status: Never used Tobacco Tobacco use type: Cigarette e-Cigarette/Vaping Use: Currently Using Second Hand Smoke Exposure: No Substance Use Type: Crack/Cocaine and Heroin service: No Current occupational status: unemployed Sexual orientation: Straight/Heterosexual Physical Exam Const: Other: Gen: ?Appears older than stated age HEENT: No blood in the airway noted, tolerated p.o. CV: RRR, no obvious murmurs appreciated Resp: ?No wheezing rales rhonchi no stridor moving air well Abd: ?Bowel sounds are present, no tenderness no rebound no rigidity MSK: Ambulatory Skin: Excoriations over bilateral lower extremities Neuro: ?Alert and oriented x3, moving upper and lower extremities symmetrically, no obvious facial asymmetry noted Medical Decision Making Medical Decision Making [facility] Narrative: Patient is ambulatory, did not overdose, not interested in detox, admits to opiate use, we will be discharged, no trauma no other complaints Discharge Plan Discharge Clinical Impression: Opiate abuse, continuous Patient Disposition: Home, Self-Care Additional Instructions: Opiate use disorder You were seen in our Emergency Department today for treatment of opiate use disorder. You may have been dosed with medication for opiate use disorder (MOUD) in the form of suboxone or methadone. You may experience feeling some withdrawal symptoms and this is normal. The? dose in the Emergency Department is a starting dose and meant to be titrated up once you follow up with a clinic. Please do not feel discouraged, it is a process. The nurse has reviewed with you where to follow up and what information to bring with you, to continue treatment. You also may have been given naloxone (narcan) to take home with you. This medication is used to potentially treat opiate overdose. If you decide you want to stop or cut down on how much you?re using, you can call or walk into our outpatient Addiction Treatment office: [facility] (M-F 9am-5p) [address] [place] [address], [phone] You may have been provided with safer injection?items, please take time to take care of YOU and your health. Use new supplies whenever possible to lessen the chances of infections and other illnesses.? ?If you need more supplies, please go [facility],? [address] [place] [address] OR you can call or text to coordinate delivery of safer supplies. You were also provided a list of several treatment providers in the area.? If you experience any worsening symptoms you cannot control please return to the ED or call 911. Please follow up at your next appointment. Things to look out for are fevers, chest pain, shortness of breath, severe pain, dizziness, fainting or any other concerns. Prescriptions: No Action methadone [Methadone Intensol] 10 mg/mL Concentrate 115 mg PO DAILY nicotine (polacrilex) 2 mg Gum 2 mg buccal Q2H PRN (Reason: Nicotine Cravings) 30 Days Qty: 120 1RF doxycycline monohydrate 100 mg Capsule 100 mg PO BID 15 Days Qty: 30 0RF albuterol sulfate [Ventolin HFA] 90 mcg/actuation Hfa Aerosol Inhaler 2 puff inhalation RQ4H PRN (Reason: Bronchospasm) 30 Days Qty: 1 0RF gabapentin 300 mg Capsule 600 mg PO TID 30 Days Qty: 180 0RF Anbesol (benzocaine) Max Str 20 % Gel 1 appl mucous membrane TID PRN (Reason: mouth pain) 30 Days Qty: 9 0RF Protocol: Apply to: Apply to: affected area Vraylar 1.5 mg Capsule 1.5 mg PO DAILY 30 Days Qty: 30 0RF atorvastatin 40 mg Tablet 40 mg PO DAILY 30 Days Qty: 30 0RF aspirin 81 mg tablet,delayed release (DR/EC) 81 mg PO DAILY 30 Days Qty: 30 0RF hydroxyzine HCl 25 mg Tablet 25 mg PO BID PRN (Reason: Anxiety) 30 Days Qty: 60 0RF Rx Instructions: take 1 to 2 tablets by mouth twice a day as needed for anxiety ibuprofen 600 mg Tablet 600 mg PO TID PRN (Reason: Pain (Scale Score 4-6)) 30 Days Qty: 90 0RF cholecalciferol (vitamin D3) [Vitamin D3] 25 mcg (1,000 unit) Tablet 50 mcg PO DAILY 30 Days Qty: 60 0RF melatonin 5 mg Tablet 5 mg PO BEDTIME PRN (Reason: Insomnia) 30 Days Qty: 30 0RF naloxone [Narcan] 4 mg/actuation spray,non-aerosol 4 mg intranasal Q2M PRN (Reason: opioid overdose) 1 Days Qty: 2 0RF Rx Instructions: spray 1 dose into ONE nostril; alternate nostrils w each dose until help arrives doxycycline hyclate 100 mg tablet 100 mg PO BID Qty: 20 0RF Print Language: Peruvian
[2025-04-17 15:55] VITALS: BP 123/83; PULSE 107; RESP 18; TEMP 37.4; O2SAT 97; BMI 19.8
[2025-04-17 15:58] VITALS: BP 123/83; PULSE 107; RESP 18; TEMP 37.4; O2SAT 97
--- NOTE | 2025-04-17 16:05 | PC.NURSE ---
pt arrived via EMS after using heroin, per EMS PD found pt asleep and shook him awake. no narcan administered. pt agreeable to come to hospital. vitals stable in ED, A&Ox4. wanting to leave. Vatrenko to bedside to assess pt
== END 2025-04-17 16:06 | disposition home or self-care (01) ==
LOC: HO.ED 16:04
PROVIDERS: Emergency Provider Emergency Medicine
DX: F11.10 Opioid abuse, uncomplicated (principal)
CPT/HCPCS: 99282

== ENCOUNTER 2025-05-06 08:05 | Emergency (ER) | payer MEDICARE, MEDICAID, SELFPAY ==
--- OUTSIDE RECORDS SUMMARY | 2024-05-07 05:45 | XMS_ITS ---
Author Organization [facility] Address [address] [place], [place] [id number] Care Team Providers Care Base Filler Operator Name Role Phone Group Lauren Primary Care Provider Nellie Parmar Encounters Encounter Location Date Provider Diagnosis [facility] [address] [place] [phone] 05/07/2024 Nellie Parmar Plan Of Treatment No Information Progress Notes * OLGATavoDOB:1980 (44 yo M)Acc No.[id number]:05/07/2024 Case Management Patient: Tavo PHOENIX Provider: Yessenia Parmar :1980 A ge:43 Y S ex:Male Date:05/07/2024 Address:[address], [place] Pcp:Group Aniya Rick Subjective: * Chief Complaints: [...] * Electronic signature of Harris Parmar on 05/06/2025 at 09:29 AM EDT Sign off status: Pending * Provider: Yessenia Parmar Date: 0 05/07/2024 Generated for Mark garcia/Maulik/eTransmitting on: 0 05/06/2025 09:29 AM EDT History and Physical Notes * HPI (History of Present Illness) Category Sub-Category Detail Notes Category Not es Social Service 05/07/2024 Tried contacting the client, telephone number on file is NIS: Not In Service tried contacting the emergency contact left a short brief message on vmail, to contact me at earliest convenience.
[2025-05-06] VITALS (7 sets, daily range): BP systolic 103–140; BP diastolic 64–80; PULSE 50–99; RESP 14–20; TEMP 36.5–36.8; O2SAT 97–100; BMI 21.3
--- NOTE | 2025-05-06 08:26 | ED.GENADULT ---
HPI - General Adult General Chief complaint: Overdose Stated complaint: OD,NARCAN GIVEN W/GOOD RESULT PRIOR TO EMS ARRIVAL Time Seen by Provider: 05/06/25 08:25 Source: patient, EMS, RN notes reviewed and old records reviewed Mode of arrival: EMS Limitations: no limitations History of Present Illness ED Provider: Tai HPI narrative: Patient is a 44-year-old male with history of polysubstance dependence on methadone, depression, rhabdo presenting to the emergency department via EMS after an overdose. Patient was reportedly in a construction area, then laid down and was administered Narcan by the police department. Patient awake and alert on arrival to the emergency department. States he received his last dose of methadone yesterday at [facility]. Complains of feeling restless, otherwise denies any physical complaints. Denies SI/HI/AH/VH. MD complaint: overdose Related Data Home Medications ?Medication ?Instructions ?Recorded ?Confirmed methadone 10 mg/mL oral 100 mg PO DAILY 06/03/22 05/06/25 concentrate (Methadone Intensol) Previous Rx's ?Medication ?Instructions ?Recorded albuterol sulfate 90 mcg/actuation 2 puff inhalation RQ4H PRN 07/13/24 aerosol inhaler (Ventolin HFA) Bronchospasm 30 days #1 inhaler aspirin 81 mg tablet,delayed 81 mg PO DAILY 30 days #30 tabs 07/13/24 release atorvastatin 40 mg tablet 40 mg PO DAILY 30 days #30 tabs 07/13/24 benzocaine 20 % mucosal gel 1 appl mucous membrane TID PRN 07/13/24 (Anbesol (benzocaine) Maximum mouth pain 30 days #9 grams Strength) cariprazine 1.5 mg capsule 1.5 mg PO DAILY 30 days #30 caps 07/13/24 (Vraylar) cholecalciferol (vitamin D3) 25 50 mcg (2 x 25 mcg (1,000 unit)) 07/13/24 mcg (1,000 unit) tablet (Vitamin PO DAILY 30 days #60 tabs D3) doxycycline monohydrate 100 mg 100 mg PO BID 15 days #30 caps 07/13/24 capsule gabapentin 300 mg capsule 600 mg (2 x 300 mg) PO TID 30 days 07/13/24 #180 caps hydroxyzine HCl 25 mg tablet 25 mg PO BID PRN Anxiety 30 days 07/13/24 #60 tabs ibuprofen 600 mg tablet 600 mg PO TID PRN Pain (Scale 07/13/24 Score 4-6) 30 days #90 tabs melatonin 5 mg tablet 5 mg PO BEDTIME PRN Insomnia 30 07/13/24 days #30 tabs naloxone 4 mg/actuation nasal 4 mg intranasal Q2M PRN opioid 07/13/24 spray (Narcan) overdose 1 day #2 ea nicotine (polacrilex) 2 mg gum 2 mg buccal Q2H PRN Nicotine 07/13/24 Cravings 30 days #120 ea doxycycline hyclate 100 mg tablet 100 mg PO BID #20 tabs 11/28/24 Allergies Allergy/AdvReac Type Severity Reaction Status Date / Time amoxicillin Allergy Anaphylaxis Verified 05/06/25 08:20 Penicillins Allergy Unknown Verified 05/06/25 08:20 Review of Systems Review of Systems: As per HPI Yes all other systems are reviewed and are negative Constitutional: Constitutional: Reports as per HPI PMFSH Past Medical History Medical History Heart palpitations IVDU (intravenous drug user) Social History Social History Household Members: None Housing: Homeless Do you presently have visiting nurse or other home services: No Unable to assess alcohol history related to: Unknown Alcohol intake: never Patient Tobacco Use Status: Never used Tobacco Tobacco use type: Cigarette Smoked in Last 30 Days: No e-Cigarette/Vaping Use: Currently Using Second Hand Smoke Exposure: No Substance Use Type: Heroin Substance Use Frequency: Daily Substance Use Frequency Other:: sts used 1 bag today, normally does more Last Used Substance: Just Prior to Admission Any prior treatment program specific to substance use: No Advance Directives: No Advance Directives Information Provided: Yes service: No Current occupational status: unemployed Sexual orientation: Straight/Heterosexual Physical Exam ED Vital Signs: Vital Signs - 24 hr 05/06/25 08:17 05/06/25 09:54 05/06/25 12:20 Temperature 98 F 98.2 F Pulse Rate 74 60 57 Respiratory Rate 18 18 20 Blood Pressure 131/74 119/74 140/80 H Pulse Oximetry 97 99 97 Oxygen Delivery Method Room Air Room Air Room Air 05/06/25 14:03 05/06/25 16:48 Temperature 98.0 F 98 F Pulse Rate 58 50 Respiratory Rate 14 16 Blood Pressure 120/74 113/68 Pulse Oximetry 98 98 Oxygen Delivery Method Room Air Room Air BMI result Body Mass Index 21.3 Vital signs have been reviewed and appear to be correct. Blood pressure normal. Heart rate normal. Respiratory rate normal. Temperature normal. Oxygen saturation normal. Const General: cooperative and no acute distress Orientation/consciousness: oriented to person, oriented to place, oriented to time and patient oriented x3 Limitations: no limitations HENMT Head: Yes normocephalic and Yes atraumatic Ears: external ears normal General nose exam: Normal external nose present Face and sinus: Yes face symmetric Mouth: oropharynx normal and moist mucous membranes Throat: Yes uvula midline Eyes Pupils: Equal, round and reactive pupils present Neck Neck: Yes normal visual inspection and Yes supple Resp Effort & Inspection: normal respiratory effort and able to speak in complete sentences Auscultation: clear to auscultation bilaterally Cardio Rate: regular rate Rhythm: regular rhythm Heart sounds: S1 normal heart sound present and S2 normal heart sound present GI Palpation (GI): Soft to palpation and nontender Auscultation: normoactive bowel sounds General: Yes no CVA tenderness Back/Spine/Pelvis Back: no CVA tenderness Skin General skin exam: elasticity normal and turgor normal Neuro General: oriented to person, oriented to place, oriented to time, patient oriented x3, moves all extremities, no focal motor deficits and CN's II-XI intact bilaterally Cranial nerves: Yes Equal, round and reactive pupils present Cognition (Neuro): normal cognition Extrem General: Yes full ROM, Yes no pedal edema and Yes no calf tenderness Psych Mental Status: mental status grossly normal Affect: normal affect Thought process: Normal thought process present Course Reevaluation(s) Reevaluation #1: Patient now stating he is interested in detox. Siria chief engineer drilling and recovery notified. Patient has been observed in the ED for 7 hours without decompensation, will place on phys obs pending recovery eval. Time: 14:47 Reevaluation #2: Spoke with Viry from the recovery team, the patient has a detox bed, she is requesting that we discharge the patient by 10:00 p.m. Time: 21:46 Medications Administered Discontinued Medications Generic Name Dose Route Start Last Admin Trade Name Freq PRN Reason Stop Dose Admin Methadone HCl 100 mg 05/06/25 12:45 05/06/25 14:31 Methadone Hcl 20 Mg/2 Ml Oral.Conc PO 05/06/25 12:46 100 mg ONCE ONE Administration Medical Decision Making Medical Decision Making [facility] Narrative: Patient is a 44-year-old male with history of polysubstance dependence on methadone, depression, rhabdo presenting to the emergency department via EMS after an overdose. On exam patient is awake, A+Ox3, VS WNL, afebrile, normal neurological exam without focal deficits, physical exam findings as above. Given reported symptoms and physical exam findings, initial differential includes but is not limited to accidental overdose, opioid use disorder. Patient agreeable to remaining in the ED for observation. Not interested in assistance with detox. Lab Data 05/06/25 17:03 05/06/25 17:03 Labs: Lab Results 05/06/25 05/06/25 Range/Units 16:52 17:03 WBC 11.5 H (4.8-10.8) X10*3/uL RBC 4.81 (4.60-5.80) X10*6/uL Hgb 14.5 (14.0-18.0) g/dl Hct 43.0 (42.0-52.0) % MCV 89.4 (80.0-98.0) fL MCH 30.1 (27.0-33.0) pg MCHC 33.7 (31.0-36.0) g/dl RDW 13.0 (11.0-16.0) % Plt Count 398 D (160-400) X10*3/uL MPV 9.8 (9.4-12.4) fL Immature Gran % (Auto) 0.3 (0.0-0.4) % Neut % (Auto) 63.9 (45-73) % Lymph % (Auto) 28.8 (20-40) % Camp % (Auto) 5.7 (2-11) % Eos % (Auto) 0.5 (0-4) % Baso % (Auto) 0.8 (0-2) % Lymph # (Auto) 3.3 (1.2-4.9) X10*3/uL Camp # (Auto) 0.7 (0.1-1.2) X10*3/uL Eos # (Auto) 0.1 (0.0-0.4) X10*3/uL Baso # (Auto) 0.1 (0.0-0.2) X10*3/uL Abs Immat Gran (auto) 0.03 (0.00-0.03) X10*3/uL Absolute Neuts (auto) 7.4 (2.0-8.3) x10*3/uL Absolute Nucleated RBC 0.000 (0.0-0.012) X10*3/uL Nucleated RBC % (auto) 0.0 (0.0-0.2) /100WBC Sodium 140 (135-145) mmol/L Potassium 3.7 D (3.3-5.1) mmol/L Chloride 103 (96-108) mmol/L Carbon Dioxide 27 (22-29) mmol/L Anion Gap 14 (12-20) BUN 25 H (9-16) mg/dL Creatinine 1.02 (0.5-1.4) mg/dL Estim Creat Clear Calc 83.8 Estimated GFR > 60 Random Glucose 102 (60-115) mg/dL Calcium 8.9 (8.4-10.2) mg/dL Total Bilirubin 0.7 (0.0-1.0) mg/dL AST 50 H (5-37) U/L ALT 52 H (0-40) U/L Alkaline Phosphatase 91 (39-117) U/L Total Protein 7.9 (6.5-8.0) g/dL Albumin 4.0 (3.5-5.0) g/dL Urine Opiates Screen POSITIVE H (Not Detect) Ur Buprenorphine Scrn Not Detected (Not Detect) ng/mL Ur Oxycodone Screen Not Detected (Not Detect) ng/mL Urine Methadone Screen Positive H (Not Detect) ng/mL Urine Fentanyl Screen POSITIVE H (Not Detect) Ur Barbiturates Screen Not Detected (Not Detect) Ur Phencyclidine Scrn Not Detected (Not Detect) Ur Amphetamines Screen POSITIVE H (Not Detect) U Benzodiazepines Scrn Not Detected (Not Detect) Urine Cocaine Screen POSITIVE H (Not Detect) U Marijuana (THC) Screen Not Detected (Not Detect) Ethyl Alcohol < 10 mg/dL Discharge Plan Discharge Clinical Impression: Polysubstance dependence including opioid type drug with complication, episodic abuse Patient Disposition: Xfer Inpatient Rehab Fac Prescriptions: No Action methadone [Methadone Intensol] 10 mg/mL Concentrate 100 mg PO DAILY nicotine (polacrilex) 2 mg Gum 2 mg buccal Q2H PRN (Reason: Nicotine Cravings) 30 Days Qty: 120 1RF doxycycline monohydrate 100 mg Capsule 100 mg PO BID 15 Days Qty: 30 0RF albuterol sulfate [Ventolin HFA] 90 mcg/actuation Hfa Aerosol Inhaler 2 puff inhalation RQ4H PRN (Reason: Bronchospasm) 30 Days Qty: 1 0RF gabapentin 300 mg Capsule 600 mg PO TID 30 Days Qty: 180 0RF Anbesol (benzocaine) Max Str 20 % Gel 1 appl mucous membrane TID PRN (Reason: mouth pain) 30 Days Qty: 9 0RF Protocol: Apply to: Apply to: affected area Vraylar 1.5 mg Capsule 1.5 mg PO DAILY 30 Days Qty: 30 0RF atorvastatin 40 mg Tablet 40 mg PO DAILY 30 Days Qty: 30 0RF aspirin 81 mg tablet,delayed release (DR/EC) 81 mg PO DAILY 30 Days Qty: 30 0RF hydroxyzine HCl 25 mg Tablet 25 mg PO BID PRN (Reason: Anxiety) 30 Days Qty: 60 0RF Rx Instructions: take 1 to 2 tablets by mouth twice a day as needed for anxiety ibuprofen 600 mg Tablet 600 mg PO TID PRN (Reason: Pain (Scale Score 4-6)) 30 Days Qty: 90 0RF cholecalciferol (vitamin D3) [Vitamin D3] 25 mcg (1,000 unit) Tablet 50 mcg PO DAILY 30 Days Qty: 60 0RF melatonin 5 mg Tablet 5 mg PO BEDTIME PRN (Reason: Insomnia) 30 Days Qty: 30 0RF naloxone [Narcan] 4 mg/actuation spray,non-aerosol 4 mg intranasal Q2M PRN (Reason: opioid overdose) 1 Days Qty: 2 0RF Rx Instructions: spray 1 dose into ONE nostril; alternate nostrils w each dose until help arrives doxycycline hyclate 100 mg tablet 100 mg PO BID Qty: 20 0RF Print Language: British
--- OUTSIDE RECORDS SUMMARY | 2025-05-06 09:30 | XMS_ITS | Clinical Summary ---
Author Organization [facility] Address [address] [place] [address] Phone Care Team Providers Care Prosthetic Aide Name Role Phone Unavailable Primary Care Provider Unavailabl e Social History Tobacco Use Types Packs/Day Years Used Date Smoking Tobacco: Never Assessed Sex and Gender Information Value Date Recorded Sex Assigned at Not on file Legal Sex Male 8:25 AM EDT Gender Identity Not on file Sexual Orientation Not on file Plan of Treatment Health Maintenance Due Date Last Done Comments Hepatitis B Vaccine (1 of 3 - 19+ 3-dose series) 11/10 Pneumococcal Vaccine: Peds ( 0 to 5 Years) and At-Risk Patients (6 to 49 Years) (1 of 2 - PCV) 2000 Influenza Vaccine (#1) 2025 [place]
--- NOTE | 2025-05-06 10:00 | PC.NURSE ---
44 M presents to ED after being narcan'd from a heroin OD, sts he did 1 bag but normally does more, also on methadone. RR even and unlabored, denies SOB, denies CP. Pt sts he feels tired but no other complaints at this time.
--- NOTE | 2025-05-06 12:12 | HE.PHANOTE ---
RE: METHADONE DOSING Last dose of methadone 100 mg was given on 05/05/25 @4387 at [facility] [phone] per BABAR Allison.
--- NOTE | 2025-05-06 13:36 | PC.NURSE ---
Methadone withheld at this time, Pt is still very drowsy.
--- NOTE | 2025-05-06 14:15 | PC.NURSE ---
pt is slightly less drowsy at this time, pt reports that he would like to go into detox, provider aware
[2025-05-06] MEDS: methADONE HCl 20 MG/2 ML ORAL.CONC 100 MG PO (14:31)
--- NOTE | 2025-05-06 16:05 | PC.NURSE ---
Pt remains somnolent; wakes to voice, falls back to sleep quickly; refusing to provide urine sample or ambulate at this time; states he wants rehab; PA aware; vss
[2025-05-06 17:08] LABS: MANUAL DIFF FLAG NO
[2025-05-06 17:15] LABS: Hematocrit 43.0 % (42.0-52.0); Hemoglobin 14.5 g/dl (14.0-18.0); Imm Gran Abs Auto 0.03 X10*3/uL (0.00-0.03); Imm Gran Pct Auto 0.3 % (0.0-0.4); Lymphocytes Absolute Auto 3.3 X10*3/uL (1.2-4.9); Mean Corpuscular HGB Conc 33.7 g/dl (31.0-36.0); Mean Corpuscular Hemoglobin 30.1 pg (27.0-33.0); Mean Corpuscular Volume 89.4 fL (80.0-98.0); NRBC Abs Auto 0.000 X10*3/uL (0.0-0.012); NRBC Pct Auto 0.0 /100WBC (0.0-0.2); Platelet Count 398 X10*3/uL (160-400); Red Blood Count 4.81 X10*6/uL (4.60-5.80); White Blood Count 11.5 X10*3/uL (4.8-10.8)
[2025-05-06 17:19] LABS: Cannabinoid Screen Urine Not Detected (Not Detect)
[2025-05-06 17:27] LABS: Alanine Aminotransferase 52 U/L (0-40); Albumin Level 4.0 g/dL (3.5-5.0); Alkaline Phosphatase 91 U/L (39-117); Anion Gap 14 (12-20); Aspartate Amino Transferase 50 U/L (5-37); Blood Urea Nitrogen 25 mg/dL (9-16); Calcium 8.9 mg/dL (8.4-10.2); Carbon Dioxide 27 mmol/L (22-29); Chloride 103 mmol/L (96-108); Creatinine Clr Calc Pharmacy 83.8; Estimated Glomerular Filt Rate > 60; Potassium 3.7 mmol/L (3.3-5.1); Sodium 140 mmol/L (135-145); Total Protein 7.9 g/dL (6.5-8.0)
--- NOTE | 2025-05-06 18:42 | PC.NURSE ---
Pt on the phone with intake from [facility]
--- NOTE | 2025-05-06 19:30 | MHC.CARE ---
Patient accepted to [facility] for 2299.
== END 2025-05-07 01:01 ==
PROVIDERS: Registered Nurse Emergency; Emergency Provider Emergency Medicine
DX: T40.2X1A Poisoning by other opioids, accidental (unintentional), initial encounter (principal); F19.10 Other psychoactive substance abuse, uncomplicated
CPT/HCPCS: 36415; 80053; 80307; 85025; 99285; S9485

== ENCOUNTER 2025-08-27 04:01 | Emergency (ER) | payer MEDICARE, MEDICAID, SELFPAY ==
--- OUTSIDE RECORDS SUMMARY | 2024-03-04 05:20 | XMS_ITS ---
Author Organization [facility] Address [address] [place] [address] Care Team Providers Care Respiratory Practitioner Name Role Phone Aniya [employer] Prabhjot Primary Care Provider Nellie Parmar Unavailable [phone] [place] Unavailable [phone] Encounters Encounter Location Date Provider [facility] [address] [place] [phone] 03/04/2024 [place] Plan Of Treatment No Information Progress Notes * Tavo ESPINOZADOB:1980 (44 yo M)Acc No.[id number]:03/04/2024 Case Management Patient: Tavo PHOENIX Provider: Angel Kruger :1980 A ge:43 Y S ex:Male Date:03/04/2024 Address:[address], [place], [place] Pcp:Group Aniya Rick Subjective: * Chief Complaints: * * Medical History: Objective: Assessment: Plan: * Treatment: * Images: Billing Information: * Visit Code: * Procedure Codes: Care Plan Details* * Electronic signature of [place] on 08/27/2025 at 04:19 AM EDT Sign off status: Pending * Provider: Angel Kruger Date: 0 03/04/2024 Generated for Printi ng/Faxing/eTransmitting on: 1 04:19 AM EDT
--- OUTSIDE RECORDS SUMMARY | 2024-05-07 05:45 | XMS_ITS ---
Author Organization [facility] Address [address] [place] [address] Care Team Providers Care Religious Educator Name Role Phone Group Lauren Primary Care Provider Nellie Parmar [facility] Encounters Encounter Location Date Provider Diagnosis [facility] [address] [place] [phone] 05/07/2024 Nellie Parmar Plan Of Treatment No Information Progress Notes * OLGATavoDOB:1980 (44 yo M)Acc No.[id number]:05/07/2024 Case Management Patient: Tavo PHOENIX Provider: Yessenia Parmar :1980 A ge:43 Y S ex:Male Date:05/07/2024 Address:[address], [place] [facility] [id number] Pcp:Group Aniya Rick Subjective: * Chief Complaints: [...] Plan Details* * Electronic signature of Harris Parmra on 08/27/2025 at 04:19 AM EDT Sign off status: Pending * Provider: Yessenia Parmar Date: 0 05/07/2024 Generated for Mark garcia/Maulik/eTdayanasmitting on: 1 04:19 AM EDT History and Physical Notes * HPI (History of Present Illness) Category Sub-Category Detail Notes Category Not es Social Service 05/07/2024 Tried contacting the client, telephone number on file is NIS: Not In Service tried contacting the emergency contact left a short brief message on vmail, to contact me at earliest convenience.
--- OUTSIDE RECORDS SUMMARY | 2025-07-10 17:00 | XMS_ITS ---
Author Organization [facility] Address [address] [place] [address] Care Team Providers Care Talent Acquisition Sourcer Name Role Phone Aniya Prabhjot [facility] Primary Care Provider Nellie Parmar Unavailable Migration, Provider Unavailable Unavailable Allergies Allergen (clinical drug ingredient) Drug/Non Drug Allergy documented on EMR Reaction Allergy Type Onset Date Status amoxicillin Amoxicillin Hives down leg Drug Allergy Active WELLBUTRIN XR (uncoded) Unknown Allergy Active CODINE (uncoded) vomiting Allergy Act poli REASON FOR VISIT [facility] To [facility] Conversion Encounter Medications Medication SIG (Take, [...] MG orally 1/2 tab x 1 w [place] and then 1/4 tab x 1 week 03/21/2017 Active Encounters Encounter Location Date Provider Diagnosis [facility] [address] [place] [address] 07/10/2025 Provider Migration Plan Of Treatment No Information Progress Notes * Tavo ESPINOZADOB:1980 (44 yo M)Acc No.[id number]:07/10/2025 Patient: Tavo PHOENIX Provider: :1980 A ge:44 Y S ex:Male Date:07/10/2025 Address:[address], [place], [id number] Pcp:[facility] Subjective: * Chief Complaints: * 1 . [facility] Conversion Encounter. * Medical History: * [...] Electronic signature of Prov ider Migration on 08/27/2025 at 04:19 AM EDT Sign off status: Pending * Provider: Date: 0 07/10/2025 Generated for Mark garcia/Maulik/Gabiitting on: 04:19 AM EDT
--- NOTE | 2025-08-27 04:08 | ED_ITS ---
HPI - General Adult General Stated complaint: HAS SORES ON TONGUE Time Seen by Provider: 08/27/25 04:06 Source: patient Limitations: no limitations History of Present Illness ED Provider: Idalia Osei PA-C HPI narrative: 44-year-old male with a history of polysubstance abuse presents with painful tongue lesions of unclear duration. History is limited secondary to the fact that the patient is quite hostile and belligerent, he just arrived via EMS, and now he is refusing assessment and just wants to leave. Related Data Home Medications ?Medication ?Instructions ?Recorded ?Confirmed methadone 10 mg/mL oral 100 mg PO DAILY 06/03/2208/21 concentrate (Methadone Intensol) Previous Rx's ?Medication ?Instructions ?Recorded albuterol sulfate 90 mcg/actuation 2 puff inhalation R Q4H PRN 07/13/24 aerosol inhaler (Ventolin HFA) Bronchospasm 30 days #1 inhaler aspirin 81 mg tablet,delayed 81 mg PO DAILY 30 days #3 0 tabs 07/13/24 release atorvastatin 40 mg tablet 40 mg PO DAILY 30 days #30 t abs 07/13/24 benzocaine 20 % mucosal gel 1 appl mucous membrane TID PRN 07/13/24 (Anbesol (benzocaine) Maximum mouth pain 30 days #9 gr ams Strength) cariprazine 1.5 mg capsule 1.5 mg PO DAILY 30 days #30 caps 07/13/24 (Vraylar) cholecalciferol (vitamin D3) 25 50 mcg (2 x 25 mcg (1, 000 unit)) 07/13/24 mcg (1,000 unit) tablet (Vitamin PO DAILY 30 days #60 tabs D3) doxycycline monohydrate 100 mg 100 mg PO BID 15 days # 30 caps 07/13/24 capsule gabapentin 300 mg capsule 600 mg (2 x 300 mg) PO TID 3 0 days 07/13/24 #180 caps hydroxyzine HCl 25 mg tablet 25 mg PO BID PRN Anxiety 30 days 07/13/24 #60 tabs ibuprofen 600 mg tablet 600 mg PO TID PRN Pain (Scal e 07/13/24 Score 4-6) 30 days #90 tabs melatonin 5 mg tablet 5 mg PO BEDTIME PRN Insomnia 30 07/13/24 days #30 tabs naloxone 4 mg/actuation nasal 4 mg intranasal Q2M PRN opioid 07/13/24 spray (Narcan) overdose 1 day #2 ea nicotine (polacrilex) 2 mg gum 2 mg buccal Q2H PRN Mele otine 07/13/24 Cravings 30 days #120 ea doxycycline hyclate 100 mg tablet 100 mg PO BID #20 ta bs 11/28/24 Allergies Allergy/AdvReac Type Severity Reaction Status Date / Time amoxicillin Allergy Anaphylaxis Verified 05/06/25 08:20 Penicillins Allergy Unknown Verified 05/06/25 08:20 Review of Systems Review of Systems: Unable to obtain as the patient is hostile and belligerent Yes all other systems are reviewed and are negative [facility] Past Medical History Attestation statement: The following information was validated with the patient. Medical History Heart palpitations IVDU (intravenous drug user) Social History Social History Household Members: None Housing: Homeless Do you presently have visiting nurse or other home services: No Alcohol intake: never Patient Tobacco Use Status: Never used Tobacco Tobacco use type: Cigarette e-Cigarette/Vaping Use: Currently Using Second Hand Smoke Exposure: No Substance Use Type: Heroin Advance Directives: No Advance Directives Information Provided: Yes service: No Current occupational status: unemployed Sexual orientation: Straight/Heterosexual Physical Exam ED Const Other: Awake, ill-appearing, appears older than stated age Orientation/consciousness: patient oriented x3 HENMT Other: White adherent debris right lateral tongue, oropharynx is erythematous without exudate uvula midline, no sublingual fluctuance no swelling inferior to the jawline Resp Effort & Inspection: normal respiratory effort Cardio Other: Normal peripheral perfusion Skin Other: From what I can see warm dry no rash Neuro General: patient oriented x3, gait normal, no focal motor deficits and CN's II- XI intact bilaterally Psych Other: Hostile, belligerent, uncooperative Medical Decision Making Medical Decision Making MDM Narrative: 44-year-old male with a history of polysubstance abuse presents with painful tongue lesions of unclear duration. History is limited secondary to the fact that the patient is quite hostile and belligerent, he just arrived via EMS, and now he is refusing assessment and just wants to leave. Patient allowed for very brief exam, been his agitation increased, and he continues to be hostile and belligerent, cursing at staff Discharge Plan Discharge Clinical Impression: Lesion of tongue Patient Disposition: Left Against Medical Advice Additional Instructions: You declined any assessment, you left against medical advice Prescriptions: No Action methadone [Methadone Intensol] 10 mg/mL Concentrate 100 mg PO DAILY nicotine (polacrilex) 2 mg Gum 2 mg buccal Q2H PRN (Reason: Nicotine Cravings) 30 Days Qty: 120 1RF doxycycline monohydrate 100 mg Capsule 100 mg PO BID 15 Days Qty: 30 0RF albuterol sulfate [Ventolin HFA] 90 mcg/actuation Hfa Aerosol Inhaler 2 puff inhalation RQ4H PRN (Reason: Bronchospasm) 30 Days Qty: 1 0RF gabapentin 300 mg Capsule 600 mg PO TID 30 Days Qty: 180 0RF Anbesol (benzocaine) Max Str 20 % Gel 1 appl mucous membrane TID PRN (Reason: mouth pain) 30 Days Qty: 9 0RF Protocol: Apply to: Apply to: affected area Vraylar 1.5 mg Capsule 1.5 mg PO DAILY 30 Days Qty: 30 0RF atorvastatin 40 mg Tablet 40 mg PO DAILY 30 Days Qty: 30 0RF aspirin 81 mg tablet,delayed release (DR/EC) 81 mg PO DAILY 30 Days Qty: 30 0RF hydroxyzine HCl 25 mg Tablet 25 mg PO BID PRN (Reason: Anxiety) 30 Days Qty: 60 0RF Rx Instructions: take 1 to 2 tablets by mouth twice a day as needed for anxiety ibuprofen 600 mg Tablet 600 mg PO TID PRN (Reason: Pain (Scale Score 4-6)) 30 Days Qty: 90 0RF cholecalciferol (vitamin D3) [Vitamin D3] 25 mcg (1,000 unit) Tablet 50 mcg PO DAILY 30 Days Qty: 60 0RF melatonin 5 mg Tablet 5 mg PO BEDTIME PRN (Reason: Insomnia) 30 Days Qty: 30 0RF naloxone [Narcan] 4 mg/actuation spray,non-aerosol 4 mg intranasal Q2M PRN (Reason: opioid overdose) 1 Days Qty: 2 0RF Rx Instructions: spray 1 dose into ONE nostril; alternate nostrils w each dose until help arrives doxycycline hyclate 100 mg tablet 100 mg PO BID Qty: 20 0RF Stand Alone Forms: Against Medical Advice Discharge Date/Time: 08/27/25 04:18 Print Language: Khmer
--- NOTE | 2025-08-27 04:10 | PC.NURSE ---
when entered room MD was at bedside. pt refuses to allow me to do a triage. requests to leave facility AMA. presented w/form to sign AMA and pt refuses to sign this paper as well. Registration was also present and patient refused to sign anything for them as well. 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
--- NOTE | 2025-08-27 04:15 | MHC.EDTECH ---
attempted to obtain vitals, pt refused and stated he wanted to leave AMA. RN and provider aware.
--- OUTSIDE RECORDS SUMMARY | 2025-08-27 04:19 | XMS_ITS | Clinical Summary ---
Author Organization [facility] Address [address] [place] [address] Phone Care Team Providers Care Teller Manager Name Role Phone Unavailable Primary Care Provider [...]
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
== END 2025-08-27 04:18 | disposition left against medical advice (07) ==
PROVIDERS: Emergency Provider Emergency Medicine
DX: K13.70 Unspecified lesions of oral mucosa (principal); Z53.21 Procedure and treatment not carried out due to patient leaving prior to being seen by health care provider

== ENCOUNTER 2025-08-29 18:28 | Emergency (ER) | payer MEDICARE, MEDICAID, SELFPAY ==
--- OUTSIDE RECORDS SUMMARY | 2024-03-04 04:20 | XMS_ITS ---
Author Organization [facility] Address [address] [place] [address] Care Team Providers Care Presentation Designer Name Role Phone Aniya [employer] Prabhjot Primary Care Provider [phone] Nellie Parmar Unavailable [phone] [place] Unavailable [phone] Encounters Encounter Location Date Provider Diagnosis [facility] [address] [place] [phone] 03/04/2024 [place] Plan Of Treatment No Information Progress Notes * Tavo ESPINOZADOB:1980 (44 yo M)Acc No.[id number]:03/04/2024 Case Management Patient: Tavo PHOENIX Provider: Angel Kruger :1980 A ge:43 Y S ex:Male Date:03/04/2024 Address:[address], [place], [place] Pcp:Group Aniya Rick Subjective: * Chief Complaints: * * Medical History: Objective: Assessment: Plan: * Treatment: * Images: Billing Information: * Visit Code: * Procedure Codes: Care Plan Details* * Electronic signature of [place] on 08/29/2025 at 08:35 PM EST Sign off status: Pending * Provider: Angel Kruger Date: 0 03/04/2024 Generated for Printi ng/Faxing/eTransmitting on: 1 10/29/2024 08:35 PM EST
--- OUTSIDE RECORDS SUMMARY | 2024-05-07 04:45 | XMS_ITS ---
Author Organization [facility] Address [address] [place] [address] Care Team Providers Care Matrix Drier Tender Name Role Phone Group Lauren Primary Care Provider [phone] Nellie Parmar [phone] Encounters Encounter Location Date Provider Diagnosis [facility] [address] [place] [phone] 05/07/2024 Nellie Parmar Plan Of Treatment No Information Progress Notes * OLGATavoDOB:1980 (44 yo M)Acc No.[id number]:05/07/2024 Case Management Patient: Tavo PHOENIX Provider: Yessenia Parmar :1980 A ge:43 Y S ex:Male Date:05/07/2024 Address:[address], [place] [facility] [id number] Pcp:Group Aniya Rick Subjective: * Chief Complaints: [...] * Electronic signature of Harris Parmar on 08/29/2025 at 08:34 PM EST Sign off status: Pending * Provider: Yessenia Parmar Date: 0 05/07/2024 Generated for Mark garcia/Maulik/eTdayanasmitting on: 1 10/29/2024 08:34 PM EST History and Physical Notes * HPI (History of Present Illness) Category Sub-Category Detail Notes Category Not es Social Service 05/07/2024 Tried contacting the client, telephone number on file is NIS: Not In Service tried contacting the emergency contact left a short brief message on [email or web address], to contact me at earliest convenience.
--- OUTSIDE RECORDS SUMMARY | 2025-07-10 16:00 | XMS_ITS ---
Author Organization [facility] Address [address] [place] [address] Care Team Providers Care Industrial Automation Engineer Name Role Phone Aniya Prabhjot [facility] Primary Care Provider [phone] Nellie Parmar Unavailable Migration, Provider Unavailable Unavailable Allergies Allergen (clinical drug ingredient) Drug/Non Drug Allergy documented on EMR Reaction Allergy Type Onset Date Status amoxicillin Amoxicillin Hives down leg Drug Allergy Active WELLBUTRIN XR (uncoded) Unknown Allergy Active CODINE (uncoded) vomiting Allergy Act poli REASON FOR VISIT [facility] To [facility] Conversion Encounter Medications Medication SIG (Take, Route, Frequency, Duration) Notes Start Date End Date Status cloNIDine HCl 0.1 MG 1 tab(s) orally qhs for 30 day(s) 03/21/2017 Active Multi Vitamin - 1 tab(s) orally once a day PRN Active Omeprazole 20 MG 1 cap(s) orally once a day for 30 day(s) filled 02/27/17 Active CeleXA 20 MG orally 1/2 tab x 1 w jamul and then 1/4 tab x 1 week 03/21/2017 Active Encounters Encounter Location Date Provider Diagnosis [facility] [address] [place] [address] 07/10/2025 Provider Migration Plan Of Treatment No Information Progress Notes * Tavo ESPINOZADOB:1980 (44 yo M)Acc No.[id number]:07/10/2025 Patient: Tavo PHOENIX Provider: :1980 A ge:44 Y S ex:Male Date:07/10/2025 Address:[address], [place], [place] Pcp:[facility] Subjective: * Chief Complaints: * 1 . [facility] To [facility] Conversion Encounter. * Medical History: * Medications: [...] Electronic signature of Prov ider Migration on 08/29/2025 at 08:35 PM EST Sign off status: Pending * Provider: Date: 0 07/10/2025 Generated for Mark garcia/Maulik/Gabiitting on: 10/29/2024 08:35 PM EST
[2025-08-29 18:42] VITALS: BP 132/70; PULSE 92; RESP 16; TEMP 36.3; O2SAT 98; BMI 24.2
--- NOTE | 2025-08-29 18:42 | ED_ITS ---
HPI - General Adult General Chief complaint: General Medical Stated complaint: Not feeling well Related Data Home Medications ?Medication ?Instructions ?Recorded ?Confirmed methadone 10 mg/mL oral 100 mg PO DAILY 06/03/2208/21 concentrate (Methadone Intensol) Previous Rx's ?Medication ?Instructions ?Recorded albuterol sulfate 90 mcg/actuation 2 puff inhalation R Q4H PRN 07/13/24 aerosol inhaler (Ventolin HFA) Bronchospasm 30 days #1 inhaler aspirin 81 mg tablet,delayed 81 mg PO DAILY 30 days #3 0 tabs 07/13/24 release atorvastatin 40 mg tablet 40 mg PO DAILY 30 days #30 t abs 07/13/24 benzocaine 20 % mucosal gel 1 appl mucous membrane TID PRN 07/13/24 (Anbesol (benzocaine) Maximum mouth pain 30 days #9 gr ams Strength) cariprazine 1.5 mg capsule 1.5 mg PO DAILY 30 days #30 caps 07/13/24 (Vraylar) cholecalciferol (vitamin D3) 25 50 mcg (2 x 25 mcg (1, 000 unit)) 07/13/24 mcg (1,000 unit) tablet (Vitamin PO DAILY 30 days #60 tabs D3) doxycycline monohydrate 100 mg 100 mg PO BID 15 days # 30 caps 07/13/24 capsule gabapentin 300 mg capsule 600 mg (2 x 300 mg) PO TID 3 0 days 07/13/24 #180 caps hydroxyzine HCl 25 mg tablet 25 mg PO BID PRN Anxiety 30 days 07/13/24 #60 tabs ibuprofen 600 mg tablet 600 mg PO TID PRN Pain (Scal e 07/13/24 Score 4-6) 30 days #90 tabs melatonin 5 mg tablet 5 mg PO BEDTIME PRN Insomnia 30 07/13/24 days #30 tabs naloxone 4 mg/actuation nasal 4 mg intranasal Q2M PRN opioid 07/13/24 spray (Narcan) overdose 1 day #2 ea nicotine (polacrilex) 2 mg gum 2 mg buccal Q2H PRN Mele otine 07/13/24 Cravings 30 days #120 ea doxycycline hyclate 100 mg tablet 100 mg PO BID #20 ta bs 11/28/24 Allergies Allergy/AdvReac Type Severity Reaction Status Date / Time amoxicillin Allergy Anaphylaxis Verified 08/30/25 18:57 Penicillins Allergy Unknown Verified 08/30/25 18:57 [facility] Past Medical History Medical History Heart palpitations IVDU (intravenous drug user) Social History Social History Household Members: None Housing: Homeless Do you presently have visiting nurse or other home services: No Alcohol intake: never Patient Tobacco Use Status: Never used Tobacco Tobacco use type: Cigarette e-Cigarette/Vaping Use: Currently Using Second Hand Smoke Exposure: No Substance Use Type: Heroin Advance Directives: No Advance Directives Information Provided: No service: No Current occupational status: unemployed Sexual orientation: Straight/Heterosexual Physical Exam ED Vital Signs: BMI result Body Mass Index 24.2 Course Course Course Narrative: This is a Rapid Medical Exam performed in triage by Suzie Villa PA-C. Full HPI, ROS and PE to be performed by primary ED provider. 44 yo M w/pmhx polysubstance use, rhabdo, presenting to the ED c/o chapped lips, myalgias, productive cough, rhinorrhea, weakness/lethargy, & wounds to thighs x1 wk. Is interested in detox from Fentanyl/Heroin and Cocaine. Last used earlier today. On Methadone - hasn't had it since last Saturday. Was at [facility] yesterday PE: appears under the influence. +chapped lips ambulating w/steady gait Plan: Labs, CESPEDES, Viral testing Discharge Plan Discharge Clinical Impression: Upper respiratory infection Patient Disposition: Left W/O Completing Treatment Prescriptions: No Action methadone [Methadone Intensol] 10 mg/mL Concentrate 100 mg PO DAILY nicotine (polacrilex) 2 mg Gum 2 mg buccal Q2H PRN (Reason: Nicotine Cravings) 30 Days Qty: 120 1RF doxycycline monohydrate 100 mg Capsule 100 mg PO BID 15 Days Qty: 30 0RF albuterol sulfate [Ventolin HFA] 90 mcg/actuation Hfa Aerosol Inhaler 2 puff inhalation RQ4H PRN (Reason: Bronchospasm) 30 Days Qty: 1 0RF gabapentin 300 mg Capsule 600 mg PO TID 30 Days Qty: 180 0RF Anbesol (benzocaine) Max Str 20 % Gel 1 appl mucous membrane TID PRN (Reason: mouth pain) 30 Days Qty: 9 0RF Protocol: Apply to: Apply to: affected area Vraylar 1.5 mg Capsule 1.5 mg PO DAILY 30 Days Qty: 30 0RF atorvastatin 40 mg Tablet 40 mg PO DAILY 30 Days Qty: 30 0RF aspirin 81 mg tablet,delayed release (DR/EC) 81 mg PO DAILY 30 Days Qty: 30 0RF hydroxyzine HCl 25 mg Tablet 25 mg PO BID PRN (Reason: Anxiety) 30 Days Qty: 60 0RF Rx Instructions: take 1 to 2 tablets by mouth twice a day as needed for anxiety ibuprofen 600 mg Tablet 600 mg PO TID PRN (Reason: Pain (Scale Score 4-6)) 30 Days Qty: 90 0RF cholecalciferol (vitamin D3) [Vitamin D3] 25 mcg (1,000 unit) Tablet 50 mcg PO DAILY 30 Days Qty: 60 0RF melatonin 5 mg Tablet 5 mg PO BEDTIME PRN (Reason: Insomnia) 30 Days Qty: 30 0RF naloxone [Narcan] 4 mg/actuation spray,non-aerosol 4 mg intranasal Q2M PRN (Reason: opioid overdose) 1 Days Qty: 2 0RF Rx Instructions: spray 1 dose into ONE nostril; alternate nostrils w each dose until help arrives doxycycline hyclate 100 mg tablet 100 mg PO BID Qty: 20 0RF Discharge Date/Time: 08/29/25 20:43
--- OUTSIDE RECORDS SUMMARY | 2025-08-29 20:35 | XMS_ITS | Patient Health Record ---
Author Organization [facility] Address [address] [place] [address] Care Team Providers Care Adhesive Bandage Making Operator Name Role Phone [facility], [facility] Primary Care Provider Nelile Parmar Unavailable [phone] Migration, Provider Unavailable Unavailable Allergies Allergen (clinical [...] MG orally 1/2 tab x 1 w blackfeet and then 1/4 tab x 1 week [...] uitting Section Notes: Housing/living arrangements [facility] 10:22:53 AM > @ [facility]. Mandated to program, 02/2017-[facility] WaleTona 06/11/2013 10:22:53 AM > @ [facility]. Mandated to program. Transportation Transportation: Pt is able to walk most places, Pt is able to walk most places. PCP/last visit PCP/last visit: 07/30/13, 07/30/13. Mental Health Mental Health: Dx: ADHD: age[age], Ritalin, Nortripyline, Effexor, Lamictal , Teenager: Anxiety Depression. No inpatient admissions. Bala Churchill @S[facility]A ([facility]). 03/05/17 Seeing Jenny Veliz, Dx: ADHD: age[age], Ritalin, Nortripyline, Effexor, Lamictal , Teenager: Anxiety Depression. No inpatient admissions. Bala Churchill @[facility] ([facility]). 03/05/17 Seeing Jneny Veliz. Income Income: SSI, SSDI> cut off, need to go to office for reinstatement, SSI, SSDI> cut off, need to go to office for reinstatement. 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 Legal issues/Incarcerations Legal issues/Incarcerations: [employer] HOC: 3->7 2012. + felonies.. No DIU. prior incarcerations, Pending court cases: NO, On probation until 2014. Mandated to be @ S/A, [employer] HOC: 3->7 2012. + felonies.. No DIU. [...] age: 13, Longest clean period was in skilled nursing few months here and there. HIV: neg 12/2012, No Hep C rx 03/05/17 in recovery about 1 mo, Primary drug of abuse is:Opiates, No IDU, heroin, crack/cocaine, prescription meds, speed/stimulants, , marijuana, Pt became involved in drugs at age: [age], Longest clean period was in skilled nursing few months here and there. HIV: neg 12/2012, No Hep C rx 03/05/17 in recovery about 1 mo. Alcohol Use Alcohol Use: Patient drinks daily, Began drinking at age : 11, Alcohol was a problem for patient starting at age 21, Has sustained minor injuries while intoxicated, Has a hx of blacking out: yes, Longest sobriety was while in skilled nursing on probation, Last drink was 01/14/13. Rum shots, Beer: a lot 03/05/17 sober about 1 mo, Patient drinks daily, Began drinking at age : 11, Alcohol was a problem for patient starting at age 21, Has sustained minor injuries while intoxicated, Has a hx of blacking out: yes, Longest sobriety was while in skilled nursing on probation, Last drink was 01/14/13. Rum shots, Beer: a lot 03/05/17 sober about 1 mo. Family relationships/conflicts Family relationships/conflicts: kids mother: relationship. parents: mom -> [facility] drug addict [employer], Dad: never met, man: father figure: age 12/13: [place], [place], kids mother: relationship. parents: mom -> [facility] drug addict [employer], Dad: never met, man: father figure: age 12/13: [place], [place]. Children Children: 06/11/13: daughter(s)-2: 7-Olga, 4-Kamala with Mom in [place], [place], son(s)-1--11: Wayne: [place], [place]. Can see his kids, 06/11/13: daughter(s)-2: 7-Olga, 4-Kamala with Mom in [place], [place], son(s)-1--11: Wayne: [place], [place]. Can see his kids. Sexual Health history . Sexual Health history: Orientation: Bisexual, mostly heterosexual. Pt reports greater than 5 lifetime partners, +hx of STI in the past, Sometimes uses condoms Orientation: Bisexual, mostly heterosexual. Pt reports greater than 5 lifetime partners, +hx of STI in the past, Sometimes uses condoms. Bahai Bahai: Tenriism, Tenriism. 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) Active confirmed Problem Attention deficit hyperactivity disorder (245218693) Attention-defici t hyperactivity disorder, unspecified type (F90.9) Active confirmed Problem Palpitations (85434487) Palpitations (R00.2) Active confirmed Encounters Encounter Location Date Provider Diagnosis [address] [place] [address] 07/10/2025 Provider Migration Plan Of Treatment Pending Test Test Name Order Date EKG 02/11/2017 Insurance Providers Payer Name Payer Address Payer Phone Subscriber Number Group Number Insured Name Patient Relationship to Insured Coverage Start Date Coverage End Date [place] Medicare Part A [employer] [address] [place] [address] [id number] Tavo Espinoza Self - patient is the insured 1 [place] Medicaid Standard [address] [place] [address] [id number] Tavo Espinoza Self - patient is the insured Medical (General) History Medical History History ICD Code pt reports ADHD, Anxiety, Ex plosive P. Disorder, Depression. + Insomnia: tosses and turns at night tobacco use Opioid and Cocaine use, ETOH abuse + hx TBI Palpitations Surgical History Surgery Date(Month/Year) tonsils removed as child Hospitalization History Reason Date(Month/Year) [facility] ER: facial laceration 10/03/13 [facility] ER : palpitations: EKG Sinus bradyca rdia 02/16/17
--- OUTSIDE RECORDS SUMMARY | 2025-08-29 20:35 | XMS_ITS | Clinical Summary ---
Author Organization [facility] Address [address] [place] [address] Phone Care Team Providers Care Help Desk Consultant Name Role Phone Unavailable Primary Care Provider [...]
--- NOTE | 2025-08-29 20:43 | PC.NURSE ---
No answer in WR at this time. Per security, pt has been leaving and coming back into the waiting room since he arrived. Per security, pt has left.
== END 2025-08-29 20:43 | disposition left against medical advice (07) ==
PROVIDERS: Emergency Provider Emergency Medicine
DX: J06.9 Acute upper respiratory infection, unspecified (principal); R05.9 Cough, unspecified; M79.10 Myalgia, unspecified site; Z53.21 Procedure and treatment not carried out due to patient leaving prior to being seen by health care provider
CPT/HCPCS: 99281

== ENCOUNTER 2025-08-30 18:46 | Emergency (ER) | payer MEDICARE, MEDICAID, SELFPAY ==
--- OUTSIDE RECORDS SUMMARY | 2024-03-04 04:20 | XMS_ITS ---
Author Organization [facility] Address [address] [place] [address] Care Team Providers Care Soil Field Technician Name Role Phone Aniya Group Prabhjot Primary Care Provider Nellie Parmar Unavailable [phone] [place] Unavailable [phone] Encounters Encounter Location Date Provider Diagnosis [facility] [address] [place] [phone] 03/04/2024 [place] Plan Of Treatment No Information Progress Notes * Tavo ESPINOZADOB:1980 (44 yo M)Acc No.[id number]:03/04/2024 Case Management Patient: Tavo PHOENIX Provider: Angel Kruger :1980 A ge:43 Y S ex:Male Date:03/04/2024 Address:[address], [place], [place] Pcp:Group Aniya Rick Subjective: * Chief Complaints: * * Medical History: Objective: Assessment: Plan: * Treatment: * Images: Billing Information: * Visit Code: * Procedure Codes: Care Plan Details* * Electronic signature of [place] on 08/30/2025 at 07:56 PM EST Sign off status: Pending * Provider: Angel Kruger Date: 0 03/04/2024 Generated for Printi ng/Faxing/eTransmitting on: 1 10/30/2024 07:56 PM EST
--- OUTSIDE RECORDS SUMMARY | 2024-05-07 04:45 | XMS_ITS ---
Author Organization [facility] Address [address] [place] [address] Care Team Providers Care Rug Cleaning Supervisor Name Role Phone Group Lauren Primary Care Provider Nellie Parmar Encounters Encounter Location Date Provider Diagnosis [facility] [address] [place] [phone] 05/07/2024 Nellie Parmar Plan Of Treatment No Information Progress Notes * OLGATavoDOB:1980 (44 yo M)Acc No.[id number]:05/07/2024 Case Management Patient: Tavo PHOENIX Provider: Yessenia Parmar :1980 A ge:43 Y S ex:Male Date:05/07/2024 Address:[address], [place] [facility] [phone] Pcp:Group Aniya Rick Subjective: * Chief Complaints: * * HPI: S ocial Service: 05/07/2024 Tried contacting the client, telephone number on file is NIS: Not In Service tried contacting the emergency contact left a short brief message on vmail, to contact me at earliest convenience. * Medical History: Objective: Assessment: Plan: * Treatment: * Images: Billing Information: * Visit Code: * Procedure Codes: Care Plan Details* * Electronic signature of Harris Parmar on 08/30/2025 at 07:55 PM EST Sign off status: Pending * Provider: Yessenia Parmar Date: 0 05/07/2024 Generated for Mark garcia/Maulik/eTdayanasmitting on: 1 10/30/2024 07:55 PM EST History and Physical Notes * HPI (History of Present Illness) Category Sub-Category Detail Notes Category Not es Social Service 05/07/2024 Tried contacting the client, telephone number on file is NIS: Not In Service tried contacting the emergency contact left a short brief message on [employer], to contact me at earliest convenience.
--- OUTSIDE RECORDS SUMMARY | 2025-07-10 16:00 | XMS_ITS ---
Author Organization [facility] Address [address] [place] [address] Care Team Providers Care Sales Representative Advertising Name Role Phone Aniya Prabhjot [facility] Primary Care Provider [phone] Nellie Parmar Unavailable Migration, Provider Unavailable Unavailable Allergies Allergen (clinical drug ingredient) Drug/Non Drug Allergy documented on EMR Reaction Allergy Type Onset Date Status amoxicillin Amoxicillin Hives down leg Drug Allergy Active WELLBUTRIN XR (uncoded) Unknown Allergy Active CODINE (uncoded) vomiting Allergy Act poli REASON FOR VISIT [facility] To [facility] Conversion Encounter Medications Medication SIG (Take, Route, Frequency, Duration) Notes Start Date End Date Status cloNIDine HCl 0.1 MG 1 tab(s) orally qhs for 30 day(s) 03/21/2017 Active Multi Vitamin - 1 tab(s) orally once a day PRN Active Omeprazole 20 MG 1 cap(s) orally once a day for 30 day(s) filled 02/27/17 Active CeleXA 20 MG orally 1/2 tab x 1 w [place] and then 1/4 tab x 1 week 03/21/2017 Active Encounters Encounter Location Date Provider Diagnosis [facility] [address] [place] [address] 07/10/2025 Provider Migration Plan Of Treatment No Information Progress Notes * Tavo ESPINOZADOB:1980 (44 yo M)Acc No.[id number]:07/10/2025 Patient: Tavo PHOENIX Provider: :1980 A ge:44 Y S ex:Male Date:07/10/2025 Address:[address], [place], [id number] Pcp:[facility] Subjective: * Chief Complaints: * 1 . [facility] To [facility] Conversion Encounter. * Medical History: * Medications: T aking Multi Vitamin - Tablet 1 tab(s) orally once a day PRN , Taking cloNIDine HCl 0.1 MG Tablet 1 tab(s) orally qhs , Taking Omeprazole 20 MG Capsule Delayed Release 1 cap(s) orally once a day , Notes to Pharmacist: filled 02/27/17, Taking CeleXA 20 MG Tablet orally 1/2 tab x 1 week and then 1/4 tab x 1 week * Allergies: C ODINE: vomiting - Side Effects, Amoxicillin: Hives down leg, WELLBUTRIN XR. Objective: * Vitals: Assessment: Plan: * Treatment: * Images: Billing Information: * Visit Code: * Procedure Codes: * Electronic signature of Prov ider Migration on 08/30/2025 at 07:56 PM EST Sign off status: Pending * Provider: Date: 0 07/10/2025 Generated for Mark garcia/Maulik/Gabiitting on: 10/30/2024 07:56 PM EST
--- NOTE | ~2025-08-30 | XR_ITS ---
CLINICAL HISTORY: cough, sputum production 2 view chest x-ray Comparison: CR - XR CHEST 1V - 04/14/25 17:38 EDT Findings: Lungs are well inflated. Cardiac silhouette is within normal limits. Mild bilateral perihilar bronchial wall thickening. Minimal hazy density of the infrahilar regions bilaterally. No dense area of consolidation. No pleural effusion. IMPRESSION: Findings most characteristic of bronchitis/bronchiolitis. This document has been electronically signed by: Deny Martinez MD on 08/30/2025 22:56:51
[2025-08-30 18:54] VITALS: BP 110/63; BP 114/82; PULSE 80; PULSE 96; RESP 16; TEMP 36.7; O2SAT 97; O2SAT 99; BMI 25.8
[2025-08-30 19:00] VITALS: BP 110/63; PULSE 80; RESP 16; TEMP 36.7; O2SAT 97
--- NOTE | 2025-08-30 19:09 | PC.NURSE ---
Pt awake and alert. Arrived via EMS for concerns of increasing anxiety. Pt states he is looking for detox facility. Recent incarceration, states Methadone dosing got messed up and was unable to get it for over a week. Went to [facility] ED last night and received 30mg and then was not set up going forward. Pt denies SI/HI. VSS. Calm and cooperative with staff. Agreeable to supervisor records change and belongings search by security. hazmat technician to bedside for lab draw.
--- NOTE | 2025-08-30 19:22 | MHC.EDTECH ---
governor assembler hydraulic done by fabian silver and Lucien (security) for anxiety/detox per RN. Pts belongings searched by security, and remain at bedside.
[2025-08-30 19:45] LABS: Hematocrit 37.2 % (42.0-52.0); Hemoglobin 12.5 g/dl (14.0-18.0); Mean Corpuscular HGB Conc 33.6 g/dl (31.0-36.0); Mean Corpuscular Hemoglobin 31.0 pg (27.0-33.0); Mean Corpuscular Volume 92.3 fL (80.0-98.0); NRBC Abs Auto 0.000 X10*3/uL (0.0-0.012); NRBC Pct Auto 0.0 /100WBC (0.0-0.2); Platelet Count 303 X10*3/uL (160-400); Red Blood Count 4.03 X10*6/uL (4.60-5.80); White Blood Count 8.6 X10*3/uL (4.8-10.8)
[2025-08-30 19:49] LABS: Appearance Urine Clear; Cannabinoid Screen Urine Not Detected (Not Detect); Glucose Urine UA Negative (Negative); PH 6.0 (5.0-9.0); Specific Gravity - Urine >= 1.030 (1.005-1.025); UMIC TRIGGER UACC YES
[2025-08-30 19:55] LABS: Alanine Aminotransferase 90 U/L (0-40); Albumin Level 4.1 g/dL (3.5-5.0); Alkaline Phosphatase 81 U/L (39-117); Anion Gap 10 (12-20); Aspartate Amino Transferase 84 U/L (5-37); Blood Urea Nitrogen 12 mg/dL (9-16); Calcium 9.1 mg/dL (8.4-10.2); Carbon Dioxide 31 mmol/L (22-29); Chloride 105 mmol/L (96-108); Creatinine Clr Calc Pharmacy 114.3; Estimated Glomerular Filt Rate > 60; Potassium 3.5 mmol/L (3.3-5.1); Sodium 142 mmol/L (135-145); Total Protein 7.2 g/dL (6.5-8.0)
--- OUTSIDE RECORDS SUMMARY | 2025-08-30 19:56 | XMS_ITS | Clinical Summary ---
Author Organization [facility] Address [address] [place] [address] Phone Care Team Providers Care Sewing Machine Assembler Name Role Phone Unavailable Primary Care Provider [...]
--- OUTSIDE RECORDS SUMMARY | 2025-08-30 19:56 | XMS_ITS | Patient Health Record ---
Author Organization [facility] Address [address] [place] [address] Care Team Providers Care Car Rider Name Role Phone [facility], [facility] Primary Care Provider [phone] Nellie Parmar Unavailable [phone] Migration, Provider Unavailable Unavailable Allergies Allergen (clinical drug ingredient) Drug/Non Drug Allergy documented on EMR Reaction Allergy Type Onset Date Status amoxicillin Amoxicillin Hives down leg Drug Allergy Active CODINE (uncoded) vomiting Allergy Act poil WELLBUTRIN XR (uncoded) Unknown Allergy Active Reason [...] MG orally 1/2 tab x 1 w [place] and then 1/4 tab x 1 week [...] uitting Section Notes: Housing/living arrangements [facility] 10:22:53 AM > @ [facility]. Mandated to program, 02/2017-[facility] WaleTona 06/11/2013 10:22:53 AM > @ [facility]. Mandated to program. Transportation Transportation: Pt is able to walk most places, Pt is able to walk most places. PCP/last visit PCP/last visit: 07/30/13, 07/30/13. Mental Health Mental Health: Dx: ADHD: age[age], Ritalin, Nortripyline, Effexor, Lamictal , Teenager: Anxiety Depression. No inpatient admissions. Bala Churchill @S/A ([facility]). 03/05/17 Seeing Jenny Veliz, Dx: ADHD: age[age], Ritalin, Nortripyline, Effexor, Lamictal , Teenager: Anxiety Depression. No inpatient admissions. Bala Churchill @[facility] ([facility] 03/05/17 Seeing Jenny Veliz. Income Income: SSI, SSDI> cut off, need to go to office for reinstatement, SSI, SSDI> cut off, need to go to office for reinstatement. 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 Legal issues/Incarcerations Legal issues/Incarcerations: [place] HOC: 3->7 2012. + felonies.. No DIU. prior incarcerations, Pending court cases: NO, On probation until 2014. Mandated to be @ S/A, [place] HOC: 3->7 2012. + felonies.. No DIU. [...] age: 13, Longest clean period was in residential few months here and there. HIV: neg 12/2012, No Hep C rx 03/05/17 in recovery about 1 mo, Primary drug of abuse is:Opiates, No IDU, heroin, crack/cocaine, prescription meds, speed/stimulants, , marijuana, Pt became involved in drugs at age: 13/13, Longest clean period was in residential few months here and there. HIV: neg 12/2012, No Hep C rx 03/05/17 in recovery about 1 mo. Alcohol Use Alcohol Use: Patient drinks daily, Began drinking at age : 11, Alcohol was a problem for patient starting at age 21, Has sustained minor injuries while intoxicated, Has a hx of blacking out: yes, Longest sobriety was while in residential on probation, Last drink was 01/14/13. Rum shots, Beer: a lot 03/05/17 sober about 1 mo, Patient drinks daily, Began drinking at age : 11, Alcohol was a problem for patient starting at age 21, Has sustained minor injuries while intoxicated, Has a hx of blacking out: yes, Longest sobriety was while in residential on probation, Last drink was 01/14/13. Rum shots, Beer: a lot 03/05/17 sober about 1 mo. Family relationships/conflicts Family relationships/conflicts: kids mother: relationship. parents: mom -> [facility] drug addict [employer], Dad: never met, man: father figure: age 12/13: [place], [place], kids mother: relationship. parents: mom -> [facility] drug addict [employer], Dad: never met, man: father figure: age 12/13: [place], [place]. Children Children: 06/11/13: daughter(s)-2: 7-Olga, 4-Kamala with Mom in [place], [place], son(s)-1--11: Wayne: [place], [place]. Can see his kids, 06/11/13: daughter(s)-2: 7-Olga, 4-Kamala with Mom in [place], [place], son(s)-1--11: Wayne: [place], [place]. Can see his kids. Sexual Health history . Sexual Health history: Orientation: Bisexual, mostly heterosexual. Pt reports greater than 5 lifetime partners, +hx of STI in the past, Sometimes uses condoms Orientation: Bisexual, mostly heterosexual. Pt reports greater than 5 lifetime partners, +hx of STI in the past, Sometimes uses condoms. Voodoo Voodoo: Scientology, Scientology. 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) Active confirmed Problem Attention deficit hyperactivity disorder (169986067) Attention-defici t hyperactivity disorder, unspecified type (F90.9) Active confirmed Problem Palpitations (79992777) Palpitations (R00.2) Active confirmed Encounters Encounter Location Date Provider Diagnosis [address] [place] [address] 07/10/2025 Provider Migration Plan Of Treatment Pending Test Test Name Order Date EKG 02/11/2017 Insurance Providers Payer Name Payer Address Payer Phone Subscriber Number Group Number Insured Name Patient Relationship to Insured Coverage Start Date Coverage End Date [place] Part [place] [employer] [address] [place] [phone] [id number] Tavo Espinoza Self - patient is the insured 1 [place] Standard [address] [place] [address] [id number] Tavo Espinoza Self - patient is the insured Medical (General) History Medical History History ICD Code pt reports ADHD, Anxiety, Ex plosive P. Disorder, Depression. + Insomnia: tosses and turns at night tobacco use Opioid and Cocaine use, ETOH abuse + hx TBI Palpitations Surgical History Surgery Date(Month/Year) tonsils removed as child Hospitalization History Reason Date(Month/Year) [facility] ER: facial laceration 10/03/13 [facility] ER : palpitations: EKG Sinus bradyca rdia 02/16/17
--- NOTE | 2025-08-30 21:59 | ED_ITS ---
HPI - Anxiety General Chief Complaint: Anxiety Stated Complaint: anxiety Time Seen by Provider: 08/30/25 21:14 Source: patient, RN notes reviewed and old records reviewed Mode of arrival: ambulatory History of Present Illness ED Provider: Dr. Doreen Humphreys HPI narrative: 44-year-old male with a history of polysubstance use disorder, hepatitis-C, continued IV drug use recently released from senior care about 10 days ago presenting with request for detox from opiates and cocaine. Admits that he last use fentanyl and cocaine earlier today. Has been trying to get into a methadone clinic but has been a unable to do so since he was released from senior care 10 days ago. Denies alcohol use. Also complaining of a cough productive of ?scabs?. Feels overall sick and has some ulcers on his tongue as well as scabs all over his legs. They are nonpruritic, occasionally draining pus. No reported fever. Denies abdominal pain, nausea, vomiting, bowel changes or urinary complaints. Denies suicidal ideations but is feeling very anxious about getting methadone. Related Data Home Medications ?Medication ?Instructions ?Recorded ?Confirmed methadone 10 mg/mL oral 100 mg PO DAILY 06/03/2208/21 concentrate (Methadone Intensol) Previous Rx's ?Medication ?Instructions ?Recorded albuterol sulfate 90 mcg/actuation 2 puff inhalation R Q4H PRN 07/13/24 aerosol inhaler (Ventolin HFA) Bronchospasm 30 days #1 inhaler aspirin 81 mg tablet,delayed 81 mg PO DAILY 30 days #3 0 tabs 07/13/24 release atorvastatin 40 mg tablet 40 mg PO DAILY 30 days #30 t abs 07/13/24 benzocaine 20 % mucosal gel 1 appl mucous membrane TID PRN 07/13/24 (Anbesol (benzocaine) Maximum mouth pain 30 days #9 gr ams Strength) cariprazine 1.5 mg capsule 1.5 mg PO DAILY 30 days #30 caps 07/13/24 (Vraylar) cholecalciferol (vitamin D3) 25 50 mcg (2 x 25 mcg (1, 000 unit)) 07/13/24 mcg (1,000 unit) tablet (Vitamin PO DAILY 30 days #60 tabs D3) doxycycline monohydrate 100 mg 100 mg PO BID 15 days # 30 caps 07/13/24 capsule gabapentin 300 mg capsule 600 mg (2 x 300 mg) PO TID 3 0 days 07/13/24 #180 caps hydroxyzine HCl 25 mg tablet 25 mg PO BID PRN Anxiety 30 days 07/13/24 #60 tabs ibuprofen 600 mg tablet 600 mg PO TID PRN Pain (Scal e 07/13/24 Score 4-6) 30 days #90 tabs melatonin 5 mg tablet 5 mg PO BEDTIME PRN Insomnia 30 07/13/24 days #30 tabs naloxone 4 mg/actuation nasal 4 mg intranasal Q2M PRN opioid 07/13/24 spray (Narcan) overdose 1 day #2 ea nicotine (polacrilex) 2 mg gum 2 mg buccal Q2H PRN Mele otine 07/13/24 Cravings 30 days #120 ea doxycycline hyclate 100 mg tablet 100 mg PO BID #20 ta bs 11/28/24 Allergies Allergy/AdvReac Type Severity Reaction Status Date / Time amoxicillin Allergy Anaphylaxis Verified 08/30/25 18:57 Penicillins Allergy Unknown Verified 08/30/25 18:57 Review of Systems 2 Review of Systems: as per HPI, full review of systems performed and negative but for the above mentioned pertinent positives and negatives. FOR[facility] Past Medical History Medical History Heart palpitations IVDU (intravenous drug user) Social History Social History Household Members: None Housing: Homeless Do you presently have visiting nurse or other home services: No Alcohol intake: never Patient Tobacco Use Status: Never used Tobacco Tobacco use type: Cigarette e-Cigarette/Vaping Use: Currently Using Second Hand Smoke Exposure: No Substance Use Type: Heroin service: No Current occupational status: unemployed Sexual orientation: Straight/Heterosexual Physical Exam 2 Exam: Exam: GENERAL: Anxious, unkempt. SKIN: Normal skin color for ethnicity, warm, dry, multiple skin excoriations of various degrees of healing, no crepitus, no petechiae, no blistering. HEENT: Normocephalic, atraumatic, no stridor, posterior oropharynx nonerythematous, poor [place] dentition, dry mucous membranes, EOMI, stomatitis, white plaques along the lateral aspect of the tongue bilaterally, not truly ulcerated. NECK: Soft, supple, full ROM, midline structures nontender, no step-offs, no deformities, no lymphadenopathy. CHEST: Heart regular tachycardia, no murmurs, symmetric chest rise and fall, no crepitus. PULMONARY: Clear to auscultation bilaterally, no labored breathing, no wheezes/rhales/rhonchi. ABDOMINAL: Soft, nondistended, nontender, positive bowel sounds in all quadrants. : Deferred. MUSCULOSKELETAL: Normal tone, full range of motion, no deformities, no peripheral edema. NEURO: Alert and oriented to person, CN II through XII intact, equal strength and sensation bilateral upper and lower extremities, no focal neurologic deficits. PSYCHIATRIC: Anxious affect, agitated, tangential speech, poor eye contact and psychomotor agitation. Vital Signs: Vital Signs: Last Vital Signs Temp 97.4 F 08/31/25 20:27 Pulse 53 08/31/25 20:27 Resp 20 08/31/25 20:27 BP 155/82 H 08/31/25 20:27 Pulse Ox 100 08/31/25 20:27 O2 Del Method Room Air 08/31/25 20:27 BMI result Body Mass Index 25.8 Course Course Course Narrative: Time: 09:17 Date: 08/31/25 Provider: Kristel Stoll DO Patient in physician observation for psychiatric evaluation.? No acute events reported overnight. No current complaints. VS stable.? Pending recovery team evaluation. Will continue to monitor. Reevaluation(s) Reevaluation #1: Kristel Stoll DO 08/31/25 1800 phys obs ended 6pm he was sent to [facility] detox Medications Administered Discontinued Medications Generic Name Dose Route Start Last Admin Trade Name Freq PRN Reason Stop Dose Admin Methadone HCl 30 mg 08/31/25 07:04 08/31/25 07:18 Methadone Hcl 20 Mg/2 Ml Oral.Conc PO 08/31/25 07:05 30 mg ONCE ONE Administration Medical Decision Making Medical Decision Making [facility] Narrative: Patient presents with request for substance use detox. Differential diagnosis includes intoxication, withdrawal, substance use disorder, decompensated mental illness including depression and anxiety, among many others. We will initiate medical clearance and recovery team/care team consult. We will give him a small dose of methadone while he is waiting to have verification of the dosing. He does have methadone in his urine. 10:07 PM 08/30/2025 (Dr. Doreen Humphreys, D.O.) patient is reporting a cough with green/yellow sputum production as well as some ulcers on his tongue and a rash all over his legs and body. Concern for potential syphilis or HIV. Added on those labs. He has never been diagnosed with an immunodeficiency but does have hepatitis-C antibodies in his previous lab work. 2:46 AM 08/31/2025 (Bandar Mccormack.O.) chest x-ray is negative for pneumonia. He has some bronchitis/bronchiolitis. Patient has not coughed again since he fell back asleep. Plan for recovery team consult/care team consult. Patient will be discharged to [facility] Differential Diagnosis Differential Diagnoses: The differential diagnosis associated with the presentation includes (As above) Admission/Observation Consideration of admission/observation: Escalation of care including admission/observation considered Consult Healthcare Provider Management of the patient was discussed with: Behavioral Health Provider Lab Data MDM Lab Attestation statement: I reviewed the patient's lab results. 08/30/25 19:18 08/30/25 19:18 Labs: Lab Results 08/30/25 08/30/25 Range/Units 19:18 22:14 WBC 8.6 (4.8-10.8) X10*3/uL RBC 4.03 L (4.60-5.80) X10*6/uL Hgb 12.5 L (14.0-18.0) g/dl Hct 37.2 L (42.0-52.0) % MCV 92.3 (80.0-98.0) fL MCH 31.0 (27.0-33.0) pg MCHC 33.6 (31.0-36.0) g/dl RDW 13.2 (11.0-16.0) % Plt Count 303 (160-400) X10*3/uL MPV 10.3 (9.4-12.4) fL Absolute Nucleated RBC 0.000 (0.0-0.012) X10*3/uL Nucleated RBC % (auto) 0.0 (0.0-0.2) /100WBC Sodium 142 (135-145) mmol/L Potassium 3.5 (3.3-5.1) mmol/L Chloride 105 (96-108) mmol/L Carbon Dioxide 31 H (22-29) mmol/L Anion Gap 10 L (12-20) BUN 12 (9-16) mg/dL Creatinine 0.86 (0.5-1.4) mg/dL Estim Creat Clear Calc 114.3 Estimated GFR > 60 Random Glucose 104 (60-115) mg/dL Calcium 9.1 (8.4-10.2) mg/dL Total Bilirubin 0.4 (0.0-1.0) mg/dL AST 84 H (5-37) U/L ALT 90 H (0-40) U/L Alkaline Phosphatase 81 (39-117) U/L Total Protein 7.2 (6.5-8.0) g/dL Albumin 4.1 (3.5-5.0) g/dL Urine Color Dark Yellow Urine Appearance Clear Urine pH 6.0 (5.0-9.0) Ur Specific [place] >= 1.030 H (1.005-1.025) Urine Protein 30 (1+) H (Neg-Trace) mg/dL Urine Glucose (UA) Negative (Negative) mg/dL Urine Ketones Trace (Negative) mg/dL Urine Blood Negative (Negative) Urine Nitrite Negative (Negative) Ur Leukocyte Esterase Negative (Negative) Urine RBC 0-2 (0-2) /HPF Urine WBC 0-5 (0-5) /HPF Ur Squamous Epith Cells 0-2 (0-2) /HPF Urine Bacteria None Seen (None Seen) Hyaline Casts 3-5 (0-2) /LPF Urine Opiates Screen POSITIVE H (Not Detect) Ur Buprenorphine Scrn Not Detected (Not Detect) ng/mL Ur Oxycodone Screen Not Detected (Not Detect) ng/mL Urine Methadone Screen Positive H (Not Detect) ng/mL Urine Fentanyl Screen POSITIVE H (Not Detect) Ur Barbiturates Screen Not Detected (Not Detect) Ur Phencyclidine Scrn Not Detected (Not Detect) Ur Amphetamines Screen Not Detected (Not Detect) U Benzodiazepines Scrn Not Detected (Not Detect) Urine Cocaine Screen POSITIVE H (Not Detect) U Marijuana (THC) Screen Not Detected (Not Detect) Ethyl Alcohol < 10 mg/dL T.pallidum Ab (EIA) Nonreactive (Nonreactive) COVID-19 (ML) Negative (Negative) COVID-19 Clin Com See Note HIV 1&2 Ab/P24 Ag 4thGn Nonreactive (Nonreactive) Influenza Type A (DAVY) Negative (Negative) Influenza Type B (DAVY) Negative (Negative) Influenza A & B Note See Note Discharge Plan Discharge Clinical Impression: Acute anxiety, Opioid dependence Patient Disposition: Home, Self-Care Additional Instructions: You were seen in our Emergency Department today for treatment of a behavioral health issue. It is important after your visit that you follow up with either your behavioral health provider or a primary care doctor within 7 days.? If you have trouble finding a therapist you can reach out to [address] [phone] The National Suicide and Crisis Lifeline can be reached 7 days a week 24 hours a day.? Call 988 to speak with someone.? Return for any worsening symptoms or concerns such as thoughts of self harm or harm to others. Please call 911 if you feel your mental health is worsening.? Opiate use disorder You were seen in our Emergency Department today for treatment of opiate use disorder. You may have been dosed with medication for opiate use disorder (MOUD) in the form of suboxone or methadone. You may experience feeling some withdrawal symptoms and this is normal. The? dose in the Emergency Department is a starting dose and meant to be titrated up once you follow up with a clinic. Please do not feel discouraged, it is a process. The nurse has reviewed with you where to follow up and what information to bring with you, to continue treatment. You also may have been given naloxone (narcan) to take home with you. This medication is used to potentially treat opiate overdose. If you decide you want to stop or cut down on how much you?re using, you can call or walk into our outpatient Addiction Treatment office: [facility] (M-F 9am-5p) [address], [address] [phone] You may have been provided with safer injection?items, please take time to take care of YOU and your health. Use new supplies whenever possible to lessen the chances of infections and other illnesses.? ?If you need more supplies, please go [facility],? [address] [place] [address] OR you can call or text to coordinate delivery of safer supplies. You were also provided a list of several treatment providers in the area.? If you experience any worsening symptoms you cannot control please return to the ED or call 911. Please follow up at your next appointment. Things to look out for are fevers, chest pain, shortness of breath, severe pain, dizziness, fainting or any other concerns. Prescriptions: No Action methadone [Methadone Intensol] 10 mg/mL Concentrate 100 mg PO DAILY nicotine (polacrilex) 2 mg Gum 2 mg buccal Q2H PRN (Reason: Nicotine Cravings) 30 Days Qty: 120 1RF doxycycline monohydrate 100 mg Capsule 100 mg PO BID 15 Days Qty: 30 0RF albuterol sulfate [Ventolin HFA] 90 mcg/actuation Hfa Aerosol Inhaler 2 puff inhalation RQ4H PRN (Reason: Bronchospasm) 30 Days Qty: 1 0RF gabapentin 300 mg Capsule 600 mg PO TID 30 Days Qty: 180 0RF Anbesol (benzocaine) Max Str 20 % Gel 1 appl mucous membrane TID PRN (Reason: mouth pain) 30 Days Qty: 9 0RF Protocol: Apply to: Apply to: affected area Vraylar 1.5 mg Capsule 1.5 mg PO DAILY 30 Days Qty: 30 0RF atorvastatin 40 mg Tablet 40 mg PO DAILY 30 Days Qty: 30 0RF aspirin 81 mg tablet,delayed release (DR/EC) 81 mg PO DAILY 30 Days Qty: 30 0RF hydroxyzine HCl 25 mg Tablet 25 mg PO BID PRN (Reason: Anxiety) 30 Days Qty: 60 0RF Rx Instructions: take 1 to 2 tablets by mouth twice a day as needed for anxiety ibuprofen 600 mg Tablet 600 mg PO TID PRN (Reason: Pain (Scale Score 4-6)) 30 Days Qty: 90 0RF cholecalciferol (vitamin D3) [Vitamin D3] 25 mcg (1,000 unit) Tablet 50 mcg PO DAILY 30 Days Qty: 60 0RF melatonin 5 mg Tablet 5 mg PO BEDTIME PRN (Reason: Insomnia) 30 Days Qty: 30 0RF naloxone [Narcan] 4 mg/actuation spray,non-aerosol 4 mg intranasal Q2M PRN (Reason: opioid overdose) 1 Days Qty: 2 0RF Rx Instructions: spray 1 dose into ONE nostril; alternate nostrils w each dose until help arrives doxycycline hyclate 100 mg tablet 100 mg PO BID Qty: 20 0RF Interventions: ED Discharge Assessment Last Done: 08/31/25 20:27 Discharge Date/Time: 08/31/25 20:27 Print Language: Barbadian
[2025-08-30 22:35] LABS: COVID-19 Test Negative (Negative); IDNOW Serial# 58CA691E
[2025-08-30 22:47] LABS: IDNOW Serial# 55D5AD1C; Influenza B2 Negative (Negative)
[2025-08-30 22:56] VITALS: BP 109/57; PULSE 61; RESP 16; TEMP 36.9; O2SAT 98
[2025-08-31 01:40] VITALS: BP 130/77; PULSE 56; RESP 16; TEMP 36.8; O2SAT 100
[2025-08-31 05:31] LABS: Syphilis Screen Nonreactive (Nonreactive)
--- NOTE | 2025-08-31 05:41 | PC.NURSE ---
Assumed care of pt at 2300, pt resting in bed, eyes closed, RR even and unlabored, no apparent distress, no requests at this time.
[2025-08-31 06:32] LABS: HIV Num 1 0.08 S/CO (0.00-0.99)
[2025-08-31] MEDS: methADONE HCl 20 MG/2 ML ORAL.CONC 30 MG PO (07:18)
--- NOTE | 2025-08-31 15:17 | PC.NURSE ---
Privded with phone and number to call intake. Retured to get phone, patient stating 'Im not going there, the lady is stupid she asked me the same questions 50 times. care team aware
--- NOTE | 2025-08-31 16:43 | MHC.CARE ---
Addendum entered by Blessing Hubbard [facility] 08/31/25 17:55: Admission confirmed for 9pm Original Note: Patient completed intake with Suhail turner and accepted for admission tonight. CARE Team will coordinate transportation. Dr. Stoll updated
[2025-08-31 17:40] VITALS: BP 155/82; PULSE 53; RESP 20; TEMP 36.3; O2SAT 100
[2025-08-31 20:27] VITALS: BP 155/82; PULSE 53; RESP 20; TEMP 36.3; O2SAT 100
--- NOTE | 2025-08-31 20:27 | PC.NURSE ---
pt confirmed he had his belongings upon dc.
== END 2025-08-31 20:27 | disposition home or self-care (01) ==
PROVIDERS: Emergency Provider Emergency Medicine
DX: F41.9 Anxiety disorder, unspecified (principal); F11.20 Opioid dependence, uncomplicated; B19.20 Unspecified viral hepatitis C without hepatic coma; Z72.0 Tobacco use; Z20.822 Contact with and (suspected) exposure to COVID-19
CPT/HCPCS: 36415; 71046; 80053; 80307; 81001; 85027; 86780; 87389; 87502; 87635; 99284; S9485

== ENCOUNTER → 2025-08-30 21:49 | Outpatient (BNV) | payer MEDICARE, MEDICAID, SELFPAY | PROVIDERS: Emergency Provider Emergency Medicine; Visit Provider Radiology Diagnostic Radiology | DX: R05.9 Cough, unspecified (principal); R09.3 Abnormal sputum | CPT/HCPCS: 71046 ==

== ENCOUNTER 2025-09-30 12:22 | Emergency (ER) | payer MEDICARE, SELFPAY ==
[2025-09-30 12:27] VITALS: BP 104/68; PULSE 60; O2SAT 97
--- NOTE | 2025-09-30 12:35 | PC.NURSE ---
Pt have no complaints, is A&Ox3. Pt wants to leave, does not want to be evaluated by provider. Pt refusing vitals, refusing to get changed over. Pt LWBS.
== END 2025-09-30 12:47 | disposition left against medical advice (07) ==
PROVIDERS: Emergency Provider Emergency Medicine
DX: F19.90 Other psychoactive substance use, unspecified, uncomplicated (principal); Z59.00 Homelessness unspecified; Z53.21 Procedure and treatment not carried out due to patient leaving prior to being seen by health care provider